=== PATIENT | female | born 1930 | race Caucasian/White ===

== ENCOUNTER 2017-03-27 14:32 | Emergency (ER) | payer MEDICARE, OTHER ==
[2017-03-27] MEDS ORDERED: Oxymetazoline 0.05% Nasal Spray 15 ML Bottle NAS ONE (15:15)
[2017-03-27] MEDS ORDERED: cloNIDine 0.1 MG Tab PO ONE (15:16)
[2017-03-27] MEDS ORDERED: Labetalol 100 MG/20 ML MDV IVPUSH ONE ×2 (15:21→17:01)
--- NOTE | 2017-03-27 15:32 | EDM.PDOC ---
ED HPI GENERAL MEDICAL PROBLEM - General Chief Complaint: ENT Problem Stated Complaint: HIGH BLOOD PRESSURE/BLOODY NOSE Time Seen by Provider: 03/27/17 15:18 Source of Information: Reports: Patient History Limitations: Reports: No Limitations - History of Present Illness INITIAL COMMENTS - FREE TEXT/NARRATIVE: Patient is a 87-year-old female who presents to the ED complaining of nosebleed out of the right nare. Patient states this started at approximately 10:00 a.m. today while eating. Bleeding subsided and patient went home. At approximately 12 :00 it restarted and the bleeding has been persistent since. On examination in the ED patient's daughter who is a nurse is holding pressure to the patient's nose. Bleeding has subsided. It was found that her blood pressure is quite elevated currently 229/129 heart rate 120. Patient takes multiple medications for hypertension and states she's taken all her meds this morning as prescribed. Normally her blood pressure is 100/68. She currently denies any headache, vision changes, weakness or extremities, difficulty swallowing, chest pain, shortness of breath, nausea/vomiting, or any additional complaints. Patient states she has a superficial artery within her nose that occasionally bleeds. Normally is controlled with direct pressure. Again patient has no complaints other than epistaxis. Daughter states patient is mildly anxious with admission to the ED. Current medications include: Amlodipine, aspirin, Lipitor, lisinopril, Pepcid, potassium chloride, warfarin, Toprol-XL, clonidine, levothyroxine, and HCTZ. - Related Data Allergies Allergy/AdvReac Type Severity Reaction Status Date / Time No Known Allergies Allergy Verified 03/27/17 14:55 Home Meds: Home Meds Aspirin [Halfprin] 81 mg PO BRK 03/27/17 [History] Famotidine [Pepcid] 20 mg PO DAILY 03/27/17 [History] Hydrochlorothiazide 25 mg PO DAILY 03/27/17 [History] Levothyroxine Sodium [Synthroid] 25 mcg PO DAILY 03/27/17 [History] Lisinopril [Zestril] 20 mg PO DAILY 03/27/17 [History] Metoprolol Succinate [Toprol XL] 25 mg PO DAILY 03/27/17 [History] Potassium Chloride 10 meq PO BID PRN 03/27/17 [History] Warfarin [Coumadin] 1 mg PO Q2D 03/27/17 [History] amLODIPine [Norvasc] 10 mg PO DAILY 03/27/17 [History] atorvaSTATin [Lipitor] 20 mg PO BEDTIME 03/27/17 [History] cloNIDine HCl [Catapres] 0.2 mg PO BID 03/27/17 [History] Past Medical History HEENT History: Reports: Hard of Hearing, Impaired Vision Cardiovascular History: Reports: Afib, High Cholesterol, Hypertension, Pacemaker , Stents [employer] History: Reports: Musculoskeletal History: Reports: Arthritis Endocrine/Metabolic History: Reports: Hypothyroidism Oncologic (Cancer) History: Reports: Other (See Below) Other Oncologic History: adenocarcinoma - Infectious Disease History Infectious Disease History: Reports: Chicken Pox, Mumps - Past Surgical History Cardiovascular Surgical History: Reports: Coronary Artery Stent Social & Family History - Tobacco Use Smoking Status *Q: Former Smoker Used Tobacco, but Quit: Yes Month Tobacco Last Used: 30 years ago - Caffeine Use Caffeine Use: Reports: Coffee - Recreational Drug Use Recreational Drug Use: No ED ROS ENT - Review of Systems Review Of Systems: ROS reveals no pertinent complaints other than HPI. ED EXAM, ENT - Physical Exam Exam: See Below Exam Limited By: No Limitations General Appearance: Alert, WD/WN, No Apparent Distress Ears: Hearing Grossly Normal, Other (Daughter holding a wash rag with dried blood to the right nare. When removed no bleeding. ) Nose: Normal Inspection Mouth/Throat: Normal Inspection, Normal Oropharynx Head: Atraumatic, Normocephalic Neck: Normal Inspection, Supple Respiratory/Chest: No Respiratory Distress, Lungs Clear, Normal Breath Sounds, No Accessory Muscle Use Cardiovascular: Normal Peripheral Pulses, Regular Rate, Rhythm GI/Abdominal: Normal Bowel Sounds, Soft Neurological: Alert, Oriented, CN II-XII Intact, Normal Cognition, No Motor/ Sensory Deficits Psychiatric: Normal Affect, Normal Mood Skin: Warm, Dry, Intact, Normal Color Course - Vital Signs Last Recorded V/S: Last Vital Signs Temp 98.1 F 03/27/17 14:52 Pulse 88 03/27/17 17:31 Resp 18 03/27/17 14:52 BP 224/202 H 03/27/17 17:31 Pulse Ox 94 L 03/27/17 14:52 - Orders/Labs/Meds Labs: Laboratory Tests 03/27/17 03/27/17 03/27/17 Range/Units 15:21 15:40 15:40 WBC 11.34 H (3.98-10.04) K/mm3 RBC 5.81 H (3.98-5.22) M/mm3 Hgb 17.2 H (11.2-15.7) gm/L Hct 50.7 H (34.1-44.9) % MCV 87.3 (79.4-94.8) fl MCH 29.6 (25.6-32.2) pg MCHC 33.9 (32.2-35.5) g/dl RDW Std Deviation 46.3 (36.4-46.3) fL Plt Count 182 (182-369) K/mm3 MPV 11.6 (9.4-12.3) fl Neut % (Auto) 72.6 H (34.0-71.1) % Lymph % (Auto) 16.2 L (19.3-51.7) % Gove % (Auto) 9.3 (4.7-12.5) % Eos % (Auto) 1.3 (0.7-5.8) Baso % (Auto) 0.4 (0.1-1.2) % Neut # (Auto) 8.22 H (1.56-6.13) K/mm3 Lymph # (Auto) 1.84 (1.18-3.74) K/mm3 Gove # (Auto) 1.06 H (0.24-0.36) K/mm3 Eos # (Auto) 0.15 (0.04-0.36) K/mm3 Baso # (Auto) 0.05 (0.01-0.08) K/mm3 PT 30.9 H (8.0-13.0) SECONDS INR 2.66 Sodium 145 (136-145) mEq/L Potassium 3.0 L (3.5-5.1) mEq/L Chloride 103 (98-107) mEq/L Carbon Dioxide 27 (21-32) mEq/L Anion Gap 18.0 H (5-15) BUN 15 (7-18) mg/dL Creatinine 1.0 (0.55-1.02) mg/dL Est Cr Clr Drug Dosing 29.01 mL/min Estimated GFR (MDRD) 53 (>60) mL/min BUN/Creatinine Ratio 15.0 (14-18) Glucose 121 H (83-115) mg/dL Calcium 9.7 (8.5-10.1) mg/dL Total Bilirubin 1.1 H (0.2-1.0) mg/dL AST 29 (15-37) U/L ALT 30 (14-59) U/L Alkaline Phosphatase 101 (46-116) U/L Total Protein 8.9 H (6.4-8.2) g/dl Albumin 4.2 (3.4-5.0) g/dl Globulin 4.7 gm/dL Albumin/Globulin Ratio 0.9 L (1-2) Meds: Medications Discontinued Medications Generic Name Dose Route Start Last Admin Trade Name Freq PRN Reason Stop Dose Admin Clonidine HCl 0.2 mg 03/27/17 15:16 03/27/17 15:20 Catapres PO 03/27/17 15:17 0.2 mg ONETIME ONE Administration Labetalol HCl 20 mg 03/27/17 15:21 03/27/17 16:24 Normodyne IVPUSH 03/27/17 15:22 Not Given ONETIME ONE Protocol Labetalol HCl 20 mg 03/27/17 17:01 03/27/17 17:31 Normodyne IVPUSH 03/27/17 17:02 20 mg ONETIME ONE Administration Protocol Oxymetazoline HCl 1 ml 03/27/17 15:15 03/27/17 15:21 Afrin Original 0.05% Nasal [place] GURU 03/27/17 15:16 2 spray ONETIME ONE Administration - Re-Assessments/Exams Free Text/Narrative Re-Assessment/Exam: Initially ordered clonidine 0.2 mg by mouth due to elevated blood pressures. Initial labs will include CBC, PTT/INR, and type and screen. In addition ordered Afrin. I canceled clonidine due to the patient was mildly tachycardic with elevated blood pressure was changing to labetalol 20 mg IVP. Clonidine was already given. Canceled labetalol. Again the epistaxis has subsided with admission to the ED. I did spray Afrin 2 sprays to each nares with direct pressure held. Will attempt to drop her blood pressure although this may be difficult with her history of hypertension and currently on multiple medications. Labs reviewed: White blood cell count 11.34, hemoglobin 17.2, platelet count 182 , PTT/INR 2.66, sodium 145, potassium 3.0, creatinine 1.0, glucose 121. Reassessment, patient's blood pressure has decreased to 160 systolic. Patient has not had any additional bleeding. Labs reviewed: White blood cell count 11.34, hemoglobin 17.2, platelet count 182 , PTT/INR 2.66, sodium 145, potassium 3.0, creatinine 1.0, glucose 121. Reassessment, patient's blood pressure has decreased to 160 systolic. Bleeding continues to have subsided. 03/27/17 16:59 Reassessment, patient's blood pressure is trending upward. Last reading was 207/97 at 1701. Patient continues to have no bleeding from the right nares. Will go ahead and order labetalol 20 mg IVP. Plan is to discharge patient home when blood pressure is trending downward with instructions to take Toprol XL 50 mg every day. This will be increased from 25 mg every day to 50 mg every day. 03/27/17 18:04 Reassessment patient's blood pressure is 114/72. Patient has no bleeding from the affected and air. Will discharge patient home with instructions as documented. Departure - Departure Time of Disposition: 18:07 Disposition: Home, Self-Care 01 Condition: Good Clinical Impression: Epistaxis, Hypokalemia Hypertension Qualifiers: Hypertension type: unspecified Qualified Code(s): I10 - Essential (primary) hypertension - Discharge Information Referrals: Yonatan Pedersen MD [Primary Care Provider] - Forms: ED Department Discharge Additional Instructions: As discussed will have the patient started taking Toprol 50 mg once a day which is increased from 25 mg once a day. Continue taking amlodipine, lisinopril, clonidine, and HCTZ along with all other home medications as prescribed. Blood pressure was quite elevated with admission to the ED today. Thus suggest close monitoring twice a day, same time, with daily log kept. See your PCP on Thursday or Thursday for reevaluation. If you see a climb in your blood pressure please return to the ED. In addition if you develop epistaxis again spray Afrin 1-2 sprays to the affected and air with gentle pressure held for at least 20 minutes. If bleeding does not subside please return back to the ED. Suggest applying heavy coat of vaseline to both nares twice a day during the cold months. Again return to ED as needed for any new or worsening symptoms.
== END 2017-03-27 18:30 | disposition home or self-care (01) ==
LOC: JD.ED 14:32
DX: R04.0 Epistaxis (principal); E87.6 Hypokalemia; I10 Essential (primary) hypertension; Z79.82 Long term (current) use of aspirin; Z79.899 Other long term (current) drug therapy; Z87.891 Personal history of nicotine dependence
CPT/HCPCS: 36415; 80053; 85025; 85610; 96374; 99284; A9270

== ENCOUNTER 2017-11-29 09:20 | Inpatient (IN) | payer MEDICARE, OTHER ==
--- NOTE | 2017-11-29 09:38 | EDM.PDOC ---
ED HPI GENERAL MEDICAL PROBLEM - General Chief Complaint: Neuro Symptoms/Deficits Stated Complaint: [facility] Time Seen by Provider: 11/29/17 09:33 Source of Information: Reports: Patient, EMS, Family (daughter) History Limitations: Reports: Altered Mental Status - History of Present Illness INITIAL COMMENTS - FREE TEXT/NARRATIVE: Elderly 87-year-old female brought to the ED after being found on the floor of her home or apartment this morning. She resides alone in [facility]. It is an assisted living center. He is usually very sharp mentally alert. This morning she is confused and disoriented. She was found lying on the floor of her home for unknown length of period of time. She had lost control of her bowel and bladder function at some point in time. There was no outward signs of head trauma. Is very slow to answer us and to obey commands. Seems to be able to move all limbs. There was no emesis on scene according to paramedics and her daughter. She is not known to be diabetic. Onset: Today Onset Date: 11/29/17 (It's believed that she fell sometime during the night.) Duration: Hour(s): Location: Reports: Other (No obvious injuries but there is a change in her mental status she is confused disoriented) Quality: Reports: Other Severity: Moderate (Complains of no pain.) Improves with: Reports: None ( Moderate confusion and disorientation to person place and time.) Worsens with: Reports: None Context: Denies: Activity, Exercise, Lifting, Sick Contact, Trauma Associated Symptoms: Reports: Other Treatments ENAMEL BURNER: Reports: Other (see below) (Not able to establish as the patient for the most part is nonverbal.) - Related Data Allergies Allergy/AdvReac Type Severity Reaction Status Date / Time No Known Allergies Allergy Verified 11/29/17 09:40 Home Meds: Home Meds Aspirin [Halfprin] 81 mg PO BRK 03/27/17 [History] Famotidine [Pepcid] 20 mg PO DAILY 03/27/17 [History] Hydrochlorothiazide 25 mg PO DAILY 03/27/17 [History] Levothyroxine Sodium [Synthroid] 50 mcg PO DAILY 03/27/17 [History] Lisinopril [Zestril] 20 mg PO DAILY 03/27/17 [History] Metoprolol Succinate [Toprol XL] 25 mg PO DAILY 03/27/17 [History] Warfarin [Coumadin] 1 mg PO Q2D 03/27/17 [History] amLODIPine [Norvasc] 10 mg PO DAILY 03/27/17 [History] atorvaSTATin [Lipitor] 20 mg PO BEDTIME 03/27/17 [History] cloNIDine HCl [Catapres] 0.2 mg PO BID 03/27/17 [History] Warfarin [Coumadin] 0.5 mg PO MOWEFR 11/29/17 [History] Past Medical History HEENT History: Reports: Hard of Hearing, Impaired Vision Cardiovascular History: Reports: Afib (On Coumadin for this.), High Cholesterol , Hypertension, OK (Previous OK 3 years ago with apparently 50% of her heart damage. 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: Musculoskeletal History: Reports: Arthritis Endocrine/Metabolic History: Reports: Hypothyroidism Oncologic (Cancer) History: Reports: Other (See Below) Other Oncologic History: adenocarcinoma - Infectious Disease History Infectious Disease History: Reports: Chicken Pox, Mumps - Past Surgical History Cardiovascular Surgical History: Reports: Coronary Artery Stent Social & Family History - Caffeine Use Caffeine Use: Reports: Coffee - Living Situation & Occupation Living situation: Reports: , Alone (In an assisted living program - [facility] home.) Occupation: Retired (Has been there since her heart attack 2 years ago.) ED ROS GENERAL - Review of Systems Review Of Systems: See Below Constitutional: Reports: Other (She's not able to verbalize at this time. Daughter verbalizes that she is staying about the same as far as her weight goes.) HEENT: Reports: Glasses Respiratory: Reports: No Symptoms Cardiovascular: Reports: Blood Pressure Problem (On further questioning she denies any chest pain. Chronic hypertension and is on medication for this.), Other (Has a history of coronary disease with previous OK 2 years ago with [address] Denies: Chest Pain Endocrine: Reports: Fatigue ED EXAM, NEURO - Physical Exam Exam: See Below Exam Limited By: Altered Mental Status (Patient is disoriented and confused to person place and time which is a total atypical for her. She is normally apparently very sharp and mentally alert.) General Appearance: Anxious, Other (Appears confused. She does not answer most questions or verbalize spontaneously.) Eye Exam: Bilateral Eye: Normal Inspection, PERRL (No gaze palsy.) Throat/Mouth: Normal Inspection, Normal Lips, Normal Oropharynx, Other Head Exam: Atraumatic, Normocephalic (No obvious injuries to her tongue or oral cavity.), Other Neck: Normal Inspection (No outward signs of any closed head injuries or trauma to her head.), Supple, Non-Tender, Full Range of Motion. No: Lymphadenopathy (L ), Lymphadenopathy (R) Respiratory/Chest: No Respiratory Distress, Lungs Clear, Normal Breath Sounds, No Accessory Muscle Use, Other (No obvious injuries to her ribs or chest wall. She does have a pacemaker left upper anterior chest.) Cardiovascular: No Edema, No Gallop, No Murmur, No Rub, Irregularly Irregular ( Rhythm is irregularly irregular compatible with atrial fibrillation.) GI/Abdominal: Normal Bowel Sounds, Soft, Non-Tender, No Organomegaly, No Abnormal Bruit, No Mass Neurological: CN II-XII Intact. No: Oriented x 3, Babinski DTR: 0: Achilles (R), 1+: Achilles (R), Achilles (L), 2+: Bicep (R), Bicep (L), Patella (R), Patella (L) Back Exam: Normal Inspection, Full Range of Motion, Other (Mild kyphosis thoracic spine but no abrasions contusions or injuries.) Extremities: Other (Patient has erythema and some superficial abrasions to her right elbow particularly over the olecranon process is that she was crawling on hands and knees. She has similar erythema to the left elbow as well without abrasions. Both knees right worse on the left also have abrasion or friction erythema. There is no evidence of bony trauma however to her hips knees wrists elbows or shoulders.) Psychiatric: Flat Affect Skin Exam: Warm, Dry, Intact, Normal Color, Rash (Erythematous rashes elbows and knees as described above from friction as if she was crawling on her elbows and knees.) Course - Vital Signs Last Recorded V/S: Last Vital Signs Temp 37.2 C 11/29/17 14:10 Pulse 96 11/29/17 14:10 Resp 15 11/29/17 14:10 BP 125/65 11/29/17 14:10 Pulse Ox 96 11/29/17 14:10 - Orders/Labs/Meds Orders: Active Orders 24 hr Category Date Time Status Blood Glucose Check, Bedside [RC] ONETIME Care 11/29/17 09:36 Active EKG Documentation Completion [RC] STAT Care 11/29/17 09:36 Active Chest 1V Frontal [CR] Stat Exams 11/29/17 09:34 Taken ABO/RH TYPE [BBK] Stat Lab 11/29/17 10:04 Results CULTURE BLOOD [BC] Stat Lab 11/29/17 10:04 Received CULTURE BLOOD [BC] Stat Lab 11/29/17 10:15 Received FRESH FROZEN PLASMA [BBK] Stat Lab 11/29/17 10:04 Results PATIENT RETYPE [BBK] Stat Lab 11/29/17 10:04 Results URINALYSIS W/MICROSCOPIC [UA W/MICROSCOPIC] [URIN] Stat Lab 11/29/17 10:39 Ordered Dextrose 5%-0.9% NaCl [Dextrose 5%-Normal Saline] 1,000 Med 11/29/17 10:00 Active ml IV ASDIRECTED Blood Culture x2 Reflex Set [OM.PC] Stat Oth 11/29/17 09:36 Ordered Transfuse Fresh Frozen Plasma [COMM] Stat Oth 11/29/17 11:41 Ordered Medication Orders Dextrose/Sodium Chloride (Dextrose 5%-Normal Saline) 1,000 mls @ 150 mls/hr IV ASDIRECTED CARON Last Admin: 11/29/17 10:04 Dose: 150 mls/hr Labs: Laboratory Tests 11/29/17 11/29/17 11/29/17 Range/Units 09:46 10:04 10:04 WBC (3.98-10.04) K/mm3 RBC (3.98-5.22) M/mm3 Hgb (11.2-15.7) gm/L Hct (34.1-44.9) % MCV (79.4-94.8) fl MCH (25.6-32.2) pg MCHC (32.2-35.5) g/dl RDW Std Deviation (36.4-46.3) fL Plt Count (182-369) K/mm3 MPV (9.4-12.3) fl Neutrophils % (Manual) (40-60) % Band Neutrophils % (0-10) % Lymphocytes % (Manual) (20-40) % Atypical Lymphs % % Monocytes % (Manual) (2-10) % Eosinophils % (Manual) (0.7-5.8) % Basophils % (Manual) (0.1-1.2) Platelet Estimate RBC Morph Comment ESR (0-20) mm/hr PT (9.5-12.1) SECONDS INR Fibrinogen 396 (187-446) mg/dL Sodium (136-145) mEq/L Potassium (3.5-5.1) mEq/L Chloride (98-107) mEq/L Carbon Dioxide (21-32) mEq/L Anion Gap (5-15) BUN (7-18) mg/dL Creatinine (0.55-1.02) mg/dL Est Cr Clr Drug Dosing mL/min Estimated GFR (MDRD) (>60) mL/min BUN/Creatinine Ratio (14-18) Glucose (83-115) mg/dL POC Glucose 145 H (83-110) mg/dL Calcium (8.5-10.1) mg/dL Magnesium (1.8-2.4) mg/dl Total Bilirubin (0.2-1.0) mg/dL AST (15-37) U/L ALT (14-59) U/L Alkaline Phosphatase (46-116) U/L Creatine Kinase (26-192) U/L CK-MB (CK-2) (0-3.6) ng/ml Troponin I (0.00-0.056) ng/mL C-Reactive Protein (<1.0) mg/dL NT-Pro-B Natriuret Pep (0-450) pg/mL Total Protein (6.4-8.2) g/dl Albumin (3.4-5.0) g/dl Globulin gm/dL Albumin/Globulin Ratio (1-2) Urine Color (Yellow) Urine Appearance (Clear) Urine pH (5.0-8.0) Ur Specific Rembrandt (1.005-1.030) Urine Protein (Negative) Urine Glucose (UA) (Negative) Urine Ketones (Negative) Urine Occult Blood (Negative) Urine Nitrite (Negative) Urine Bilirubin (Negative) Urine Urobilinogen (0.2-1.0) Ur Leukocyte Esterase (Negative) Urine RBC (0-5) /hpf Urine WBC (0-5) /hpf Ur Epithelial Cells (0-5) /hpf Urine Bacteria (FEW) /hpf Hyaline Casts (0-5) /lpf Urine Mucus (FEW) /hpf Blood Type A POSITIVE 11/29/17 11/29/17 11/29/17 Range/Units 10:09 10:09 10:09 WBC 11.99 H (3.98-10.04) K/mm3 RBC 5.63 H (3.98-5.22) M/mm3 Hgb 16.4 H (11.2-15.7) gm/L Hct 50.3 H (34.1-44.9) % MCV 89.3 (79.4-94.8) fl MCH 29.1 (25.6-32.2) pg MCHC 32.6 (32.2-35.5) g/dl RDW Std Deviation 45.3 (36.4-46.3) fL Plt Count 157 L (182-369) K/mm3 MPV 11.8 (9.4-12.3) fl Neutrophils % (Manual) 89 H (40-60) % Band Neutrophils % 0 (0-10) % Lymphocytes % (Manual) 9 L (20-40) % Atypical Lymphs % 0 % Monocytes % (Manual) 2 (2-10) % Eosinophils % (Manual) 0 L (0.7-5.8) % Basophils % (Manual) 0 L (0.1-1.2) Platelet Estimate Adequate RBC Morph Comment Normal ESR (0-20) mm/hr PT 21.4 H (9.5-12.1) SECONDS INR 1.99 Fibrinogen (187-446) mg/dL Sodium 142 (136-145) mEq/L Potassium 2.8 L (3.5-5.1) mEq/L Chloride 101 (98-107) mEq/L Carbon Dioxide 27 (21-32) mEq/L Anion Gap 16.8 H (5-15) BUN 22 H (7-18) mg/dL Creatinine 1.3 H (0.55-1.02) mg/dL Est Cr Clr Drug Dosing 22.31 mL/min Estimated GFR (MDRD) 39 (>60) mL/min BUN/Creatinine Ratio 16.9 (14-18) Glucose 128 H (83-115) mg/dL POC Glucose (83-110) mg/dL Calcium 9.7 (8.5-10.1) mg/dL Magnesium 1.6 L (1.8-2.4) mg/dl Total Bilirubin 1.5 H (0.2-1.0) mg/dL AST 27 (15-37) U/L ALT 12 L (14-59) U/L Alkaline Phosphatase 94 (46-116) U/L Creatine Kinase 263 H (26-192) U/L CK-MB (CK-2) 3.7 H (0-3.6) ng/ml Troponin I < 0.017 (0.00-0.056) ng/mL C-Reactive Protein 11.5 H* (<1.0) mg/dL NT-Pro-B Natriuret Pep (0-450) pg/mL Total Protein 8.3 H (6.4-8.2) g/dl Albumin 4.2 (3.4-5.0) g/dl Globulin 4.1 gm/dL Albumin/Globulin Ratio 1.0 (1-2) Urine Color (Yellow) Urine Appearance (Clear) Urine pH (5.0-8.0) Ur Specific Rembrandt (1.005-1.030) Urine Protein (Negative) Urine Glucose (UA) (Negative) Urine Ketones (Negative) Urine Occult Blood (Negative) Urine Nitrite (Negative) Urine Bilirubin (Negative) Urine Urobilinogen (0.2-1.0) Ur Leukocyte Esterase (Negative) Urine RBC (0-5) /hpf Urine WBC (0-5) /hpf Ur Epithelial Cells (0-5) /hpf Urine Bacteria (FEW) /hpf Hyaline Casts (0-5) /lpf Urine Mucus (FEW) /hpf Blood Type 11/29/17 11/29/17 11/29/17 Range/Units 10:09 10:09 10:39 WBC (3.98-10.04) K/mm3 RBC (3.98-5.22) M/mm3 Hgb (11.2-15.7) gm/L Hct (34.1-44.9) % MCV (79.4-94.8) fl MCH (25.6-32.2) pg MCHC (32.2-35.5) g/dl RDW Std Deviation (36.4-46.3) fL Plt Count (182-369) K/mm3 MPV (9.4-12.3) fl Neutrophils % (Manual) (40-60) % Band Neutrophils % (0-10) % Lymphocytes % (Manual) (20-40) % Atypical Lymphs % % Monocytes % (Manual) (2-10) % Eosinophils % (Manual) (0.7-5.8) % Basophils % (Manual) (0.1-1.2) Platelet Estimate RBC Morph Comment ESR 21 H (0-20) mm/hr PT (9.5-12.1) SECONDS INR Fibrinogen (187-446) mg/dL Sodium (136-145) mEq/L Potassium (3.5-5.1) mEq/L Chloride (98-107) mEq/L Carbon Dioxide (21-32) mEq/L Anion Gap (5-15) BUN (7-18) mg/dL Creatinine (0.55-1.02) mg/dL Est Cr Clr Drug Dosing mL/min Estimated GFR (MDRD) (>60) mL/min BUN/Creatinine Ratio (14-18) Glucose (83-115) mg/dL POC Glucose (83-110) mg/dL Calcium (8.5-10.1) mg/dL Magnesium (1.8-2.4) mg/dl Total Bilirubin (0.2-1.0) mg/dL AST (15-37) U/L ALT (14-59) U/L Alkaline Phosphatase (46-116) U/L Creatine Kinase (26-192) U/L CK-MB (CK-2) (0-3.6) ng/ml Troponin I (0.00-0.056) ng/mL C-Reactive Protein (<1.0) mg/dL NT-Pro-B Natriuret Pep 1420 H (0-450) pg/mL Total Protein (6.4-8.2) g/dl Albumin (3.4-5.0) g/dl Globulin gm/dL Albumin/Globulin Ratio (1-2) Urine Color Yellow (Yellow) Urine Appearance Clear (Clear) Urine pH 7.0 (5.0-8.0) Ur Specific Rembrandt 1.025 (1.005-1.030) Urine Protein 3+ H (Negative) Urine Glucose (UA) Negative (Negative) Urine Ketones Trace H (Negative) Urine Occult Blood Trace-lysed H (Negative) Urine Nitrite Negative (Negative) Urine Bilirubin Negative (Negative) Urine Urobilinogen 0.2 (0.2-1.0) Ur Leukocyte Esterase Negative (Negative) Urine RBC 0-5 (0-5) /hpf Urine WBC 0-5 (0-5) /hpf Ur Epithelial Cells Not seen (0-5) /hpf Urine Bacteria Not seen (FEW) /hpf Hyaline Casts 0-5 (0-5) /lpf Urine Mucus Few (FEW) /hpf Blood Type Meds: Medications Generic Name Dose Route Start Last Admin Trade Name Freq PRN Reason Stop Dose Admin Dextrose/Sodium Chloride 1,000 mls @ 150 mls/hr 11/29/17 10:00 11/29/17 10:04 Dextrose 5%-Normal Saline IV 150 mls/hr ASDIRECTED CARON Administration Discontinued Medications Generic Name Dose Route Start Last Admin Trade Name Freq PRN Reason Stop Dose Admin Phytonadione 5 mg/ Sodium 50.5 mls @ 100 mls/hr 11/29/17 10:33 11/29/17 11:36 Chloride IV 11/29/17 11:03 100 mls/hr NOW ONE Administration Nicardipine HCl 25 mg/ Sodium 260 mls @ 52 mls/hr 11/29/17 11:45 11/29/17 12: 15 Chloride IV 5 mg/hr ASDIRECTED CARON 52 mls/hr Administration 5 MG/HR Potassium Chloride 10 meq/ 100 mls @ 100 mls/hr 11/29/17 12:06 11/29/17 12:23 Premix IV 11/29/17 13:05 100 mls/hr ONETIME ONE Administration Nicardipine HCl 25 mg/ Sodium 260 mls @ 104 mls/hr 11/29/17 12:45 Chloride IV TITRATE CARON 10 MG/HR Nicardipine HCl 25 mg/ Sodium 260 mls @ 78 mls/hr 11/29/17 13:30 Chloride IV ASDIRECTED CARON 7.5 MG/HR Nicardipine HCl 25 mg/ Sodium 260 mls @ 52 mls/hr 11/29/17 14:30 Chloride IV ASDIRECTED CARON 5 MG/HR - Radiology Interpretation Free Text/Narrative:: 87-year-old female brought to the ED per ambulance from her home where she resides alone. Apparently she is in assisted living program . She usually is mentally alert and oriented. Daughter found her this morning lying on the floor and she had lost control of her bowel and bladder. She is very confused and disoriented to person place and time. She is able to verbalize only a few words at a time she seems to abat more of her daughter's commands then mind. She seemed to have difficulty focusing on what was asked of her. She did not vomit or any spontaneous verbalization. Palpation of head and neck showed no evidence of closed head injuries or neck injuries. She has abrasions and contusions to her elbows and her knees as if she's been crawling on her elbows and knees. No bony injuries are identified on exam. Therefore the cause of acute altered mental status is unclear although CVA remains top of the list. Of note she is on Coumadin because of atrial fibrillation. Plan CT head to be done. IV will be D5 normal saline at 150 mils per hour. Routine labs to be collected. - Re-Assessments/Exams Free Text/Narrative Re-Assessment/Exam: 11/29/17 10:31 CT of the brain reveals a large intracerebral infarct most likely hypertensive bleed. This measures 31 x 24 millimeters. This involves the left parietal deep lobe mostly within the basal ganglia. There is mild shift to the right side as the lateral ventricle is mildly compressed.. Patient is anticoagulated with Coumadin. She will receive vitamin K 5 mg IV. We'll also get 2 units of fresh frozen plasma crossmatched . I spoke to her daughter and she indicates that she is a DO NOT RESUSCITATE DO NOT INTUBATE patient. For would not want heroic intervention such as intracranial surgery. Her pressure currently is 166/88 and does not deserve intervention at this time. 11/29/17 11:04 Trudi is avaialbe here. Therefore I am going to go ahead and give her 1400 units which we'll round up to 1500 units as it comes 500 units per vial. It's weight-based and 25 mcg/kg and is also based on her current INR. Therefore she deserves the above dosage as per recommendations. From what I can understand it appears that vitamin K is also administered with this once the effects of the case and to have diminished. Not sure how this is identified.. It does not say in the literature provided whether fresh frozen plasma is also used. I'm going to go ahead and call neurosurgery and [facility] to see if they have any experience with this drug. Chest x-ray reveals mild to moderate cardiomegaly. Perhaps very mild central vascular congestion. No pleural effusions. No pneumothorax or lung infiltrate. 11/29/17 11:25: Spoke with neurosurgical intervention last in [facility] and he indicates he would like her blood pressure to be around 140 systolic. Recommend neck on a pain drip. He said go ahead with N to dose based on her weight and her PT/INR. He also agreed with giving her vitamin K 5 mg intravenously over 15-20 minutes. He also agreed with giving her at least 1 unit of FFP and then rechecking coags ie INR and fibrinogen levels in 6 hours. If the INR is essentially back to normal she would not need a second unit of FFP. 11/29/17 12:06 Labs are back. Total white count is 11.99 with a left-sided shift of 89% neutrophils no bands reported. Hemoglobin is 16.4 with hematocrit of 50.3 indicating some degree of hemoconcentration. Platelet count is 157,000. Sedimentation rate is 21. PT is 21.4 with an INR of 1.99. Sodium is 142 potassium is low at 2.8. Chloride is 101 with a bicarbonate of 27. Anion gap is slightly elevated at 16.8 indicating some degree of volume depletion. BUN is 22. Creatinine is 1.3. EGFR is 39 i.e. stage III chronic kidney disease. Glucose is 128 bedside blood glucose was 145. Calcium is 9.7 with a magnesium slightly low at 1.6. Total bilirubin is elevated at 1.5. AST is 27 with a nail T of 12. Alk phosphatase 94. CPK is 263 mildly elevated total CK-MB is 3.7. Troponin I is less than 0.017. C-reactive protein is elevated at 11.5. BNP is elevated at 1420. Urinalysis shows 3+ proteinuria but no signs of infection. This was a catheterized specimen.. We will start her on a potassium rider with 10 mEq IV at this time. Current blood pressure is 188/66. Nicardipine drip is just being started now. 11/29/17 12:[address] Elaine sonography technologist hospitalist and she will attend the patient in the ED. At this time due to starting the car to pain drip to control her hypertension she will be admitted to the intensive care unit. Her CODE STATUS is confirmed DO NOT RESUSCITATE/DO NOT INTUBATE. Code level III. at this time her prognosis is extremely guarded. 11/29/17 12:40: Blood pressure is 164/92. Nicardipine drip will be increased to 10 mg per hour. Free Text/Narrative Re-Assessment/Exam: 11/29/17 13:20 blood pressure is now dropped down to 123/78. I will back off on the Cardizem to 7.5 mg per hour. 11/29/17 14:20 blood pressure stayed in the 120s for a almost the last hour. It did drop now down to 113/100 if this is accurate. I doubt it's accurate because the pulse pressures too close together. Therefore going to reduce the nicardipine drip back to 5 mg per hour. 11/29/17 14:40: Blood pressure dropped to as low as 101 systolic. Therefore the new carpeting drip was discontinued completely. 11/29/17 15:08 BP is now up to 152/74. Heart rate is 83 irregularly irregular compatible with atrial fib flutter. 94% on room air a bed is not yet available in the ICU. 11/29/17 20:44 of note this patient spent an excessive amount of time in the emergency room due to inability of a bed in the intensive care unit. Departure - Departure Time of Disposition: 19:30 Disposition: Admitted As Inpatient 67 Condition: Critical Clinical Impression: Hypokalemia, Hypomagnesemia Intracerebral bleed Qualifiers: Intracerebral hemorrhage etiology: nontraumatic Cerebral hemorrhage location: cerebral hemisphere, subcortical portion Laterality: left Qualified Code(s): I61.0 - Nontraumatic intracerebral hemorrhage in hemisphere, subcortical Hypertension Qualifiers: Hypertension type: unspecified Qualified Code(s): I10 - Essential (primary) hypertension - Discharge Information - My Orders Last 24 Hours: My Active Orders 11/29/17 09:34 Chest 1V Frontal [CR] Stat 11/29/17 09:36 Blood Glucose Check, Bedside [RC] ONETIME EKG Documentation Completion [RC] STAT Blood Culture x2 Reflex Set [OM.PC] Stat 11/29/17 10:00 Dextrose 5%-0.9% NaCl [Dextrose 5%-Normal Saline] 1,000 ml IV ASDIRECTED 11/29/17 10:04 ABO/RH TYPE [BBK] Stat CULTURE BLOOD [BC] Stat FRESH FROZEN PLASMA [BBK] Stat PATIENT RETYPE [BBK] Stat 11/29/17 10:15 CULTURE BLOOD [BC] Stat 11/29/17 10:39 URINALYSIS W/MICROSCOPIC [UA W/MICROSCOPIC] [URIN] Stat 11/29/17 11:41 Transfuse Fresh Frozen Plasma [COMM] Stat - Assessment/Plan Last 24 Hours: My Active Orders 11/29/17 09:34 Chest 1V Frontal [CR] Stat 11/29/17 09:36 Blood Glucose Check, Bedside [RC] ONETIME EKG Documentation Completion [RC] STAT Blood Culture x2 Reflex Set [OM.PC] Stat 11/29/17 10:00 Dextrose 5%-0.9% NaCl [Dextrose 5%-Normal Saline] 1,000 ml IV ASDIRECTED 11/29/17 10:04 ABO/RH TYPE [BBK] Stat CULTURE BLOOD [BC] Stat FRESH FROZEN PLASMA [BBK] Stat PATIENT RETYPE [BBK] Stat 11/29/17 10:15 CULTURE BLOOD [BC] Stat 11/29/17 10:39 URINALYSIS W/MICROSCOPIC [UA W/MICROSCOPIC] [URIN] Stat 11/29/17 11:41 Transfuse Fresh Frozen Plasma [COMM] Stat
[2017-11-29] MEDS ORDERED: Dextrose 5%-0.9% NaCl 1,000 ML IV SCH (10:00)
[2017-11-29] MEDS ORDERED: Phytonadione 5 MG in Sodium Chloride 0.9% 50 ML IV ONE (10:33)
--- NOTE | 2017-11-29 10:37 | CT ---
Head CT Technique: Multiple axial sections through the brain were obtained. Intravenous contrast was not utilized. Comparison: No prior intracranial imaging. Findings: Parenchymal hemorrhage is identified with its epicenter within the left basal ganglia. Hemorrhage has a maximum measurement of 3.1 cm. This causes mild mass effect upon the adjacent left lateral ventricle. Ventricles along the basal cisterns and sulci over convexities are moderately prominent. Diminished density is noted within the periventricular white matter which is compatible with small vessel ischemic demyelination change. Mild atrophy of the cerebellum is also noted. Mild mucosal thickening is seen within the left sphenoid sinus. Visualized sinuses are otherwise clear. No acute calvarial abnormality is seen. Impression: 1. 3.1 cm acute parenchymal hemorrhage mostly within the left basal ganglia. 2. This hemorrhage causes mild mass effect upon the lateral left ventricle. 3. Senescent change as noted above. Diagnostic code #5
[2017-11-29] MEDS ORDERED: niCARdipine HCl 25 MG in Sodium Chloride 0.9% 250 ML IV SCH ×4 (11:45→14:30)
[2017-11-29] MEDS ORDERED: PROTHROMBIN COMPLEX 500 UNIT IVPUSH ONE (12:00)
[2017-11-29] MEDS ORDERED: Potassium Chloride 10 MEQ in Premix Bag 1 BAG IV ONE (12:06)
--- NOTE | 2017-11-29 20:35 | PCM.HP ---
H&P History of Present Illness - General Date of Service: 11/29/17 Admit Problem/Dx: Admission Diagnosis/Problem Admission Diagnosis/Problem Intracerebral hemorrhage Source of Information: Provider History Limitations: Reports: No Limitations - History of Present Illness Initial Comments - Free Text/Narative: 87 year old female, a [facility] resident was found in her home on the floor. Duration is unknown, at some point there was urine and bowel incontinence. ED work up documented a basal ganglia hemorrhage; there has been no known arrhythmia, or cardiac event. She however does have a history of A Fib. ECG documents a V-paced rhythm. She denies SOB, CP; overall there are no complaints voiced. INR before reversal was 1.9; CMP abnormalities K 2.8/Mg 1.6 ; BNP 1420; ESR WNL; TnI WNL. CT of brain without contrast: large intracerebral infarct with hemorrhage; there is a mild midline shift with compression of the lateral ventricle. Guidance from neuro-vascular service in [facility] was sought. BP goal will be ~SBP,140. The patient will be admitted to the ICU with CVA protocol; she is DNR/DNI. Onset of Symptoms: Reports: Unknown/Unsure Symptom Onset Date: 11/29/17 Duration of Symptoms: Reports: Hour(s):, Getting Worse Location: Reports: Generalized Severity: Moderate Improves with: Reports: Medication Worsens with: Reports: None Associated Symptoms: Reports: Confusion - Related Data Allergies/Adverse Reactions: Allergies Allergy/AdvReac Type Severity Reaction Status Date / Time No Known Allergies Allergy Verified 11/29/17 09:40 Home Medications: Home Meds Aspirin [Halfprin] 81 mg PO BRK 03/27/17 [History] Famotidine [Pepcid] 20 mg PO DAILY 03/27/17 [History] Hydrochlorothiazide 25 mg PO DAILY 03/27/17 [History] Levothyroxine Sodium [Synthroid] 50 mcg PO DAILY 03/27/17 [History] Lisinopril [Zestril] 20 mg PO DAILY 03/27/17 [History] Metoprolol Succinate [Toprol XL] 25 mg PO DAILY 03/27/17 [History] Warfarin [Coumadin] 1 mg PO Q2D 03/27/17 [History] amLODIPine [Norvasc] 10 mg PO DAILY 03/27/17 [History] atorvaSTATin [Lipitor] 20 mg PO BEDTIME 03/27/17 [History] cloNIDine HCl [Catapres] 0.2 mg PO BID 03/27/17 [History] Warfarin [Coumadin] 0.5 mg PO MOWEFR 11/29/17 [History] Past Medical History HEENT History: Reports: Hard of Hearing, Impaired Vision Cardiovascular History: Reports: Afib, High Cholesterol, Hypertension, MT, Pacemaker, Stents AUDIO/VISUAL MANAGER History: Reports: Musculoskeletal History: Reports: Arthritis Neurological History: Reports: CVA Other Neuro History: bleed Endocrine/Metabolic History: Reports: Hypothyroidism Oncologic (Cancer) History: Reports: Other (See Below) Other Oncologic History: adenocarcinoma - Infectious Disease History Infectious Disease History: Reports: Chicken Pox, Mumps - Past Surgical History Cardiovascular Surgical History: Reports: Coronary Artery Stent Social & Family History - Family History Cardiac: Reports: Heart Failure - Tobacco Use Smoking Status *Q: Former Smoker Years of Tobacco use: 50 Packs/Tins Daily: 1 Used Tobacco, but Quit: Yes Month/Year Tobacco Last Used: 1992 Second Hand Smoke Exposure: No - Caffeine Use Caffeine Use: Reports: Coffee - Recreational Drug Use Recreational Drug Use: No - Living Situation & Occupation Living situation: Reports: , Alone (In an assisted living program - [facility].) Occupation: Retired (Has been there since her heart attack 2 years ago.) H&P Review of Systems - Review of Systems: Review Of Systems: See Below General: Reports: No Symptoms HEENT: Reports: No Symptoms Pulmonary: Reports: No Symptoms Cardiovascular: Reports: No Symptoms Gastrointestinal: Reports: No Symptoms Genitourinary: Reports: No Symptoms Musculoskeletal: Reports: No Symptoms Skin: Reports: No Symptoms Psychiatric: Reports: No Symptoms Neurological: Reports: No Symptoms Hematologic/Lymphatic: Reports: No Symptoms Immunologic: Reports: No Symptoms Exam - Exam Exam: See Below - Vital Signs Vital Signs: Last Vital Signs Temp 37.2 C 11/29/17 14:10 Pulse 96 11/29/17 14:10 Resp 15 11/29/17 14:10 BP 125/65 11/29/17 14:10 Pulse Ox 96 11/29/17 14:10 Weight: 56.699 kg - Exam Quality Assessment: Supplemental Oxygen, DVT Prophylaxis General: Alert, Cooperative HEENT: Mucosa Moist & [place], Pupils Equal, Pupils Reactive, PERRLA Neck: Trachea Midline Lungs: Normal Respiratory Effort Cardiovascular: Regular Rate, Irregular Rhythm GI/Abdominal Exam: Normal Bowel Sounds, Soft, Non-Tender, No Organomegaly, No Distention (Female) Exam: Deferred Rectal (Female) Exam: Deferred Back Exam: Normal Inspection Extremities: Normal Inspection Skin: Warm Neurological: Cranial Nerves Intact Neuro Extensive - Mental Status: Alert Neuro Extensive - Motor, Sensory, Reflexes: CN II-XII Intact, Babinski (no) Psychiatric: Alert - Patient Data Lab Results Last 24 hrs: Laboratory Results - last 24 hr 11/29/17 11/29/17 11/29/17 Range/Units 09:46 10:04 10:04 WBC (3.98-10.04) K/mm3 RBC (3.98-5.22) M/mm3 Hgb (11.2-15.7) gm/L Hct (34.1-44.9) % MCV (79.4-94.8) fl MCH (25.6-32.2) pg MCHC (32.2-35.5) g/dl RDW Std Deviation (36.4-46.3) fL Plt Count (182-369) K/mm3 MPV (9.4-12.3) fl Neutrophils % (Manual) (40-60) % Band Neutrophils % (0-10) % Lymphocytes % (Manual) (20-40) % Atypical Lymphs % % Monocytes % (Manual) (2-10) % Eosinophils % (Manual) (0.7-5.8) % Basophils % (Manual) (0.1-1.2) Platelet Estimate RBC Morph Comment ESR (0-20) mm/hr PT (9.5-12.1) SECONDS INR Fibrinogen 396 (187-446) mg/dL Sodium (136-145) mEq/L Potassium (3.5-5.1) mEq/L Chloride (98-107) mEq/L Carbon Dioxide (21-32) mEq/L Anion Gap (5-15) BUN (7-18) mg/dL Creatinine (0.55-1.02) mg/dL Est Cr Clr Drug Dosing mL/min Estimated GFR (MDRD) (>60) mL/min BUN/Creatinine Ratio (14-18) Glucose (83-115) mg/dL POC Glucose 145 H (83-110) mg/dL Calcium (8.5-10.1) mg/dL Magnesium (1.8-2.4) mg/dl Total Bilirubin (0.2-1.0) mg/dL AST (15-37) U/L ALT (14-59) U/L Alkaline Phosphatase (46-116) U/L Creatine Kinase (26-192) U/L CK-MB (CK-2) (0-3.6) ng/ml Troponin I (0.00-0.056) ng/mL C-Reactive Protein (<1.0) mg/dL NT-Pro-B Natriuret Pep (0-450) pg/mL Total Protein (6.4-8.2) g/dl Albumin (3.4-5.0) g/dl Globulin gm/dL Albumin/Globulin Ratio (1-2) Urine Color (Yellow) Urine Appearance (Clear) Urine pH (5.0-8.0) Ur Specific [place] (1.005-1.030) Urine Protein (Negative) Urine Glucose (UA) (Negative) Urine Ketones (Negative) Urine Occult Blood (Negative) Urine Nitrite (Negative) Urine Bilirubin (Negative) Urine Urobilinogen (0.2-1.0) Ur Leukocyte Esterase (Negative) Urine RBC (0-5) /hpf Urine WBC (0-5) /hpf Ur Epithelial Cells (0-5) /hpf Urine Bacteria (FEW) /hpf Hyaline Casts (0-5) /lpf Urine Mucus (FEW) /hpf Blood Type A POSITIVE 11/29/17 11/29/17 11/29/17 Range/Units 10:09 10:09 10:09 WBC 11.99 H (3.98-10.04) K/mm3 RBC 5.63 H (3.98-5.22) M/mm3 Hgb 16.4 H (11.2-15.7) gm/L Hct 50.3 H (34.1-44.9) % MCV 89.3 (79.4-94.8) fl MCH 29.1 (25.6-32.2) pg MCHC 32.6 (32.2-35.5) g/dl RDW Std Deviation 45.3 (36.4-46.3) fL Plt Count 157 L (182-369) K/mm3 MPV 11.8 (9.4-12.3) fl Neutrophils % (Manual) 89 H (40-60) % Band Neutrophils % 0 (0-10) % Lymphocytes % (Manual) 9 L (20-40) % Atypical Lymphs % 0 % Monocytes % (Manual) 2 (2-10) % Eosinophils % (Manual) 0 L (0.7-5.8) % Basophils % (Manual) 0 L (0.1-1.2) Platelet Estimate Adequate RBC Morph Comment Normal ESR (0-20) mm/hr PT 21.4 H (9.5-12.1) SECONDS INR 1.99 Fibrinogen (187-446) mg/dL Sodium 142 (136-145) mEq/L Potassium 2.8 L (3.5-5.1) mEq/L Chloride 101 (98-107) mEq/L Carbon Dioxide 27 (21-32) mEq/L Anion Gap 16.8 H (5-15) BUN 22 H (7-18) mg/dL Creatinine 1.3 H (0.55-1.02) mg/dL Est Cr Clr Drug Dosing 22.31 mL/min Estimated GFR (MDRD) 39 (>60) mL/min BUN/Creatinine Ratio 16.9 (14-18) Glucose 128 H (83-115) mg/dL POC Glucose (83-110) mg/dL Calcium 9.7 (8.5-10.1) mg/dL Magnesium 1.6 L (1.8-2.4) mg/dl Total Bilirubin 1.5 H (0.2-1.0) mg/dL AST 27 (15-37) U/L ALT 12 L (14-59) U/L Alkaline Phosphatase 94 (46-116) U/L Creatine Kinase 263 H (26-192) U/L CK-MB (CK-2) 3.7 H (0-3.6) ng/ml Troponin I < 0.017 (0.00-0.056) ng/mL C-Reactive Protein 11.5 H* (<1.0) mg/dL NT-Pro-B Natriuret Pep (0-450) pg/mL Total Protein 8.3 H (6.4-8.2) g/dl Albumin 4.2 (3.4-5.0) g/dl Globulin 4.1 gm/dL Albumin/Globulin Ratio 1.0 (1-2) Urine Color (Yellow) Urine Appearance (Clear) Urine pH (5.0-8.0) Ur Specific [place] (1.005-1.030) Urine Protein (Negative) Urine Glucose (UA) (Negative) Urine Ketones (Negative) Urine Occult Blood (Negative) Urine Nitrite (Negative) Urine Bilirubin (Negative) Urine Urobilinogen (0.2-1.0) Ur Leukocyte Esterase (Negative) Urine RBC (0-5) /hpf Urine WBC (0-5) /hpf Ur Epithelial Cells (0-5) /hpf Urine Bacteria (FEW) /hpf Hyaline Casts (0-5) /lpf Urine Mucus (FEW) /hpf Blood Type 11/29/17 11/29/17 11/29/17 Range/Units 10:09 10:09 10:39 WBC (3.98-10.04) K/mm3 RBC (3.98-5.22) M/mm3 Hgb (11.2-15.7) gm/L Hct (34.1-44.9) % MCV (79.4-94.8) fl MCH (25.6-32.2) pg MCHC (32.2-35.5) g/dl RDW Std Deviation (36.4-46.3) fL Plt Count (182-369) K/mm3 MPV (9.4-12.3) fl Neutrophils % (Manual) (40-60) % Band Neutrophils % (0-10) % Lymphocytes % (Manual) (20-40) % Atypical Lymphs % % Monocytes % (Manual) (2-10) % Eosinophils % (Manual) (0.7-5.8) % Basophils % (Manual) (0.1-1.2) Platelet Estimate RBC Morph Comment ESR 21 H (0-20) mm/hr PT (9.5-12.1) SECONDS INR Fibrinogen (187-446) mg/dL Sodium (136-145) mEq/L Potassium (3.5-5.1) mEq/L Chloride (98-107) mEq/L Carbon Dioxide (21-32) mEq/L Anion Gap (5-15) BUN (7-18) mg/dL Creatinine (0.55-1.02) mg/dL Est Cr Clr Drug Dosing mL/min Estimated GFR (MDRD) (>60) mL/min BUN/Creatinine Ratio (14-18) Glucose (83-115) mg/dL POC Glucose (83-110) mg/dL Calcium (8.5-10.1) mg/dL Magnesium (1.8-2.4) mg/dl Total Bilirubin (0.2-1.0) mg/dL AST (15-37) U/L ALT (14-59) U/L Alkaline Phosphatase (46-116) U/L Creatine Kinase (26-192) U/L CK-MB (CK-2) (0-3.6) ng/ml Troponin I (0.00-0.056) ng/mL C-Reactive Protein (<1.0) mg/dL NT-Pro-B Natriuret Pep 1420 H (0-450) pg/mL Total Protein (6.4-8.2) g/dl Albumin (3.4-5.0) g/dl Globulin gm/dL Albumin/Globulin Ratio (1-2) Urine Color Yellow (Yellow) Urine Appearance Clear (Clear) Urine pH 7.0 (5.0-8.0) Ur Specific [place] 1.025 (1.005-1.030) Urine Protein 3+ H (Negative) Urine Glucose (UA) Negative (Negative) Urine Ketones Trace H (Negative) Urine Occult Blood Trace-lysed H (Negative) Urine Nitrite Negative (Negative) Urine Bilirubin Negative (Negative) Urine Urobilinogen 0.2 (0.2-1.0) Ur Leukocyte Esterase Negative (Negative) Urine RBC 0-5 (0-5) /hpf Urine WBC 0-5 (0-5) /hpf Ur Epithelial Cells Not seen (0-5) /hpf Urine Bacteria Not seen (FEW) /hpf Hyaline Casts 0-5 (0-5) /lpf Urine Mucus Few (FEW) /hpf Blood Type 11/29/17 Range/Units 18:40 WBC (3.98-10.04) K/mm3 RBC (3.98-5.22) M/mm3 Hgb (11.2-15.7) gm/L Hct (34.1-44.9) % MCV (79.4-94.8) fl MCH (25.6-32.2) pg MCHC (32.2-35.5) g/dl RDW Std Deviation (36.4-46.3) fL Plt Count (182-369) K/mm3 MPV (9.4-12.3) fl Neutrophils % (Manual) (40-60) % Band Neutrophils % (0-10) % Lymphocytes % (Manual) (20-40) % Atypical Lymphs % % Monocytes % (Manual) (2-10) % Eosinophils % (Manual) (0.7-5.8) % Basophils % (Manual) (0.1-1.2) Platelet Estimate RBC Morph Comment ESR (0-20) mm/hr PT 12.4 H (9.5-12.1) SECONDS INR 1.14 Fibrinogen (187-446) mg/dL Sodium (136-145) mEq/L Potassium (3.5-5.1) mEq/L Chloride (98-107) mEq/L Carbon Dioxide (21-32) mEq/L Anion Gap (5-15) BUN (7-18) mg/dL Creatinine (0.55-1.02) mg/dL Est Cr Clr Drug Dosing mL/min Estimated GFR (MDRD) (>60) mL/min BUN/Creatinine Ratio (14-18) Glucose (83-115) mg/dL POC Glucose (83-110) mg/dL Calcium (8.5-10.1) mg/dL Magnesium (1.8-2.4) mg/dl Total Bilirubin (0.2-1.0) mg/dL AST (15-37) U/L ALT (14-59) U/L Alkaline Phosphatase (46-116) U/L Creatine Kinase (26-192) U/L CK-MB (CK-2) (0-3.6) ng/ml Troponin I (0.00-0.056) ng/mL C-Reactive Protein (<1.0) mg/dL NT-Pro-B Natriuret Pep (0-450) pg/mL Total Protein (6.4-8.2) g/dl Albumin (3.4-5.0) g/dl Globulin gm/dL Albumin/Globulin Ratio (1-2) Urine Color (Yellow) Urine Appearance (Clear) Urine pH (5.0-8.0) Ur Specific [place] (1.005-1.030) Urine Protein (Negative) Urine Glucose (UA) (Negative) Urine Ketones (Negative) Urine Occult Blood (Negative) Urine Nitrite (Negative) Urine Bilirubin (Negative) Urine Urobilinogen (0.2-1.0) Ur Leukocyte Esterase (Negative) Urine RBC (0-5) /hpf Urine WBC (0-5) /hpf Ur Epithelial Cells (0-5) /hpf Urine Bacteria (FEW) /hpf Hyaline Casts (0-5) /lpf Urine Mucus (FEW) /hpf Blood Type Result Diagrams: 11/30/17 05:47 11/30/17 05:47 - Problem List (1) Atrial fibrillation SNOMED Code(s): 15655975 ICD Code: I48.91 - UNSPECIFIED ATRIAL FIBRILLATION Status: Acute Current Visit: Yes (2) Pacemaker ECG pattern SNOMED Code(s): 635478987 ICD Code: Z95.0 - PRESENCE OF CARDIAC PACEMAKER Status: Acute Current Visit: Yes (3) CAD (coronary artery disease) SNOMED Code(s): 46030798 ICD Code: I25.10 - ATHSCL HEART DISEASE OF [place] CORONARY ARTERY W/O ANG PCTRS Status: Acute Current Visit: Yes (4) Myocardial infarction, old SNOMED Code(s): 4865471 ICD Code: I25.2 - OLD MYOCARDIAL INFARCTION Status: Acute Current Visit: Yes (5) Hypertension SNOMED Code(s): 09710598 ICD Code: I10 - ESSENTIAL (PRIMARY) HYPERTENSION Status: Acute Current Visit: Yes Qualifiers: Hypertension type: unspecified Qualified Code(s): I10 - Essential (primary ) hypertension (6) Hypokalemia SNOMED Code(s): 28333093 ICD Code: E87.6 - HYPOKALEMIA Status: Acute Current Visit: Yes (7) Hypomagnesemia SNOMED Code(s): 268528191 ICD Code: E83.42 - HYPOMAGNESEMIA Status: Acute Current Visit: Yes (8) Intracerebral bleed SNOMED Code(s): 803983724 ICD Code: I61.9 - NONTRAUMATIC INTRACEREBRAL HEMORRHAGE, UNSPECIFIED Status : Acute Current Visit: Yes Qualifiers: Intracerebral hemorrhage etiology: nontraumatic Cerebral hemorrhage location: cerebral hemisphere, subcortical portion Laterality: left Qualified Code(s): I61.0 - Nontraumatic intracerebral hemorrhage in hemisphere, subcortical Problem List Initiated/Reviewed/Updated: Yes Orders Last 24hrs: Active Orders 24 hr Category Date Time Status Admission Status [Patient Status] [ADT] Routine ADT 11/29/17 16:48 Active Blood Glucose Check, Bedside [RC] ONETIME Care 11/29/17 09:36 Active EKG Documentation Completion [RC] STAT Care 11/29/17 09:36 Active Chest 1V Frontal [CR] Stat Exams 11/29/17 09:34 Taken ABO/RH TYPE [BBK] Stat Lab 11/29/17 10:04 Results CULTURE BLOOD [BC] Stat Lab 11/29/17 10:04 Received CULTURE BLOOD [BC] Stat Lab 11/29/17 10:15 Received FRESH FROZEN PLASMA [BBK] Stat Lab 11/29/17 10:04 Results PATIENT RETYPE [BBK] Stat Lab 11/29/17 10:04 Results URINALYSIS W/MICROSCOPIC [UA W/MICROSCOPIC] [URIN] Stat Lab 11/29/17 10:39 Ordered Dextrose 5%-0.9% NaCl [Dextrose 5%-Normal Saline] 1,000 Med 11/29/17 10:00 Active ml IV ASDIRECTED Blood Culture x2 Reflex Set [OM.PC] Stat Oth 11/29/17 09:36 Ordered Transfuse Fresh Frozen Plasma [COMM] Stat Oth 11/29/17 11:41 Ordered Medication Orders Dextrose/Sodium Chloride (Dextrose 5%-Normal Saline) 1,000 mls @ 150 mls/hr IV ASDIRECTED [facility] Last Admin: 11/29/17 10:04 Dose: 150 mls/hr Assessment/Plan Comment:: Impression: Acute mental status change Basal Ganglia hemorrhage History of A Fib on Coumadin S/P KCentra, FFP and Vitamin K S/P PPM~A Fib History of CAD/MT Chronic Hypothyroid HTN HLD Plan ICU with neurochecks BP Control Home meds as appropriate Hold Coumadin Daily labs DVT/GI prophylaxis DNR/DNI comfort care Consult PT/OT/CM Disposition, SNF
[2017-11-29] MEDS ORDERED: Metoprolol Tartrate 5 MG/5 ML SDV IVPUSH PRN (20:50)
[2017-11-29] MEDS ORDERED: Non-Formulary Medication 1 Each (Atorvastatin 20 MG) PO SCH (21:00)
[2017-11-29] MEDS: cloNIDine 0.1 MG Tab PO SCH (22:01)
[2017-11-29] MEDS: Simvastatin 20 MG Tab PO SCH (22:02)
[2017-11-30] MEDS: Levothyroxine 50 MCG Tab PO SCH (06:56)
--- NOTE | 2017-11-30 07:27 | CR ---
Chest: Portable view of the chest was obtained. Comparison: No prior chest x-ray. Heart is slightly enlarged. Mild tortuosity of the thoracic aorta is seen. Pacemaker is noted. Lungs are clear with no acute parenchymal change. Pulmonary vessels show slight upper lobe redistribution. Bony structures are grossly intact. Impression: 1. Cardiomegaly with mild upper lobe pulmonary vascular redistribution. Diagnostic code #3
[2017-11-30] MEDS ORDERED: Magnesium Sulfate/Water 4 GM in Premix Bag 1 BAG IV SCH (08:00)
[2017-11-30] MEDS: Potassium Chloride 10 MEQ in Premix Bag 1 BAG IV SCH ×6 (10:02→19:52)
[2017-11-30] MEDS: Magnesium Sulfate/Water 2 GM in Premix Bag 1 BAG IV SCH ×2 (10:02→11:48)
[2017-11-30] MEDS: Famotidine 20 MG Tab PO SCH (10:03)
[2017-11-30] MEDS: Lisinopril 10 MG Tab PO SCH ×2 (10:03→18:24)
[2017-11-30] MEDS: cloNIDine 0.1 MG Tab PO SCH ×2 (10:04→20:19)
[2017-11-30] MEDS: Metoprolol Succinate 25 MG Tab.ER PO SCH (10:04)
[2017-11-30] MEDS: amLODIPine 10 MG Tab PO SCH (10:06)
--- NOTE | 2017-11-30 14:19 | CT ---
Head CT Technique: Multiple axial sections through the brain were obtained. Intravenous contrast was not utilized. Comparison: Prior head CT study of 11/29/17. Findings: Stable appearing hemorrhage is seen within the left basal ganglia. Mild amount of surrounding edema is seen which is also stable. Mild midline shift is seen which is also stable. Senescent change is seen which is unchanged. No acute intracranial abnormality is seen from prior exam. No acute calvarial abnormality is seen. Mild mucosal thickening remains within the left sphenoid sinus. Impression: 1. Stable hemorrhage within the left basal ganglia. 2. Other findings as noted above are also stable. Diagnostic code #3
[2017-11-30] MEDS ORDERED: Magnesium Sulfate/Water 4 GM in Premix Bag 1 BAG IV ONE (14:33)
[2017-11-30] MEDS: Potassium Chloride 20 MEQ Tab.ER PO SCH ×2 (16:17→20:33)
--- NOTE | 2017-11-30 17:31 | PCM.PN ---
- General Info Date of Service: 11/30/17 Admission Dx/Problem (Free Text): Admission Diagnosis/Problem Admission Diagnosis/Problem Intracerebral hemorrhage Subjective Update: In to see Makenzie. Overall she looks alert and comfortable, but is still very confused and disoriented. She is able to follow commands, but is unable to answer questions and has garbled speech. Per nursing, she has difficulty walking and needs assistance when going to the bathroom- she is not able to walk much more than that. Good appetite. Urinating. No other concerns from nursing. Functional Status: Reports: Pain Controlled, Tolerating Diet, Ambulating, Urinating - Review of Systems General: Reports: Weakness HEENT: Reports: Other (Impaired vision, Hard of hearing) Neurological: Reports: Confusion, Difficulty Walking, Weakness Psychiatric: Reports: Confusion Systems Review Comment:: Unable to attain d/t AMS s/p intracranial hemorrhage - Patient Data Vitals - Most Recent: Last Vital Signs Temp 99 F 11/30/17 16:00 Pulse 79 11/30/17 16:00 Resp 26 H 11/30/17 16:00 BP 137/60 11/30/17 16:00 Pulse Ox 96 11/30/17 16:00 Weight - Most Recent: 125 lb I&O - Last 24 Hours: Intake & Output 11/30/17 11/30/17 11/30/17 06:59 14:59 22:59 Intake Total 300 415 Output Total 150 550 Balance -150 -250 415 Lab Results Last 24 Hours: Laboratory Results - last 24 hr 11/29/17 11/29/17 11/30/17 Range/Units 10:04 18:40 05:47 WBC 9.76 (3.98-10.04) K/mm3 RBC 5.03 (3.98-5.22) M/mm3 Hgb 15.2 (11.2-15.7) gm/L Hct 45.8 H (34.1-44.9) % MCV 91.1 (79.4-94.8) fl MCH 30.2 (25.6-32.2) pg MCHC 33.2 (32.2-35.5) g/dl RDW Std Deviation 45.8 (36.4-46.3) fL Plt Count 152 L (182-369) K/mm3 MPV 11.9 (9.4-12.3) fl Neut % (Auto) 71.2 H (34.0-71.1) % Lymph % (Auto) 17.1 L (19.3-51.7) % [place] % (Auto) 9.7 (4.7-12.5) % Eos % (Auto) 1.5 (0.7-5.8) Baso % (Auto) 0.3 (0.1-1.2) % Neut # (Auto) 6.94 H (1.56-6.13) K/mm3 Lymph # (Auto) 1.67 (1.18-3.74) K/mm3 [place] # (Auto) 0.95 H (0.24-0.36) K/mm3 Eos # (Auto) 0.15 (0.04-0.36) K/mm3 Baso # (Auto) 0.03 (0.01-0.08) K/mm3 PT 12.4 H (9.5-12.1) SECONDS INR 1.14 Sodium (136-145) mEq/L Potassium (3.5-5.1) mEq/L Chloride (98-107) mEq/L Carbon Dioxide (21-32) mEq/L Anion Gap (5-15) BUN (7-18) mg/dL Creatinine (0.55-1.02) mg/dL Est Cr Clr Drug Dosing mL/min Estimated GFR (MDRD) (>60) mL/min BUN/Creatinine Ratio (14-18) Glucose (83-115) mg/dL Lactic Acid (0.4-2.0) mmol/L Calcium (8.5-10.1) mg/dL Magnesium (1.8-2.4) mg/dl C-Reactive Protein (<1.0) mg/dL Triglycerides (<150) mg/dL Cholesterol (<200) mg/dL LDL Cholesterol Direct (<100) mg/dL HDL Cholesterol (40-59) mg/dL TSH 3rd Generation (0.358-3.74) uIU/mL Blood Type A POSITIVE 11/30/17 11/30/17 11/30/17 Range/Units 05:47 05:47 05:47 WBC (3.98-10.04) K/mm3 RBC (3.98-5.22) M/mm3 Hgb (11.2-15.7) gm/L Hct (34.1-44.9) % MCV (79.4-94.8) fl MCH (25.6-32.2) pg MCHC (32.2-35.5) g/dl RDW Std Deviation (36.4-46.3) fL Plt Count (182-369) K/mm3 MPV (9.4-12.3) fl Neut % (Auto) (34.0-71.1) % Lymph % (Auto) (19.3-51.7) % [place] % (Auto) (4.7-12.5) % Eos % (Auto) (0.7-5.8) Baso % (Auto) (0.1-1.2) % Neut # (Auto) (1.56-6.13) K/mm3 Lymph # (Auto) (1.18-3.74) K/mm3 [place] # (Auto) (0.24-0.36) K/mm3 Eos # (Auto) (0.04-0.36) K/mm3 Baso # (Auto) (0.01-0.08) K/mm3 PT 11.9 (9.5-12.1) SECONDS INR 1.09 Sodium 143 (136-145) mEq/L Potassium 2.7 L (3.5-5.1) mEq/L Chloride 104 (98-107) mEq/L Carbon Dioxide 30 (21-32) mEq/L Anion Gap 11.7 (5-15) BUN 15 (7-18) mg/dL Creatinine 1.0 (0.55-1.02) mg/dL Est Cr Clr Drug Dosing 29.01 mL/min Estimated GFR (MDRD) 53 (>60) mL/min BUN/Creatinine Ratio 15.0 (14-18) Glucose 114 (83-115) mg/dL Lactic Acid 1.0 (0.4-2.0) mmol/L Calcium 9.0 (8.5-10.1) mg/dL Magnesium 1.4 L (1.8-2.4) mg/dl C-Reactive Protein 8.8 H* (<1.0) mg/dL Triglycerides 102 (<150) mg/dL Cholesterol 138 (<200) mg/dL LDL Cholesterol Direct 74 (<100) mg/dL HDL Cholesterol 51.0 (40-59) mg/dL TSH 3rd Generation 1.402 (0.358-3.74) uIU/mL Blood Type Rafael Results Last 24 Hours: Microbiology 11/29/17 10:04 Aerobic Blood Culture - Preliminary Blood - Venous NO GROWTH AFTER 1 DAY Anaerobic Blood Culture - Preliminary NO GROWTH AFTER 1 DAY 11/29/17 10:15 Aerobic Blood Culture - Preliminary Blood - Venous - Lab Draw NO GROWTH AFTER 1 DAY Anaerobic Blood Culture - Preliminary NO GROWTH AFTER 1 DAY Med Orders - Current: Current Medications Amlodipine Besylate (Norvasc) 10 mg PO DAILY [facility] Last Admin: 11/30/17 10:06 Dose: 10 mg Clonidine HCl (Catapres) 0.2 mg PO BID [facility] Last Admin: 11/30/17 10:04 Dose: 0.2 mg Famotidine (Pepcid) 20 mg PO DAILY [facility] Last Admin: 11/30/17 10:03 Dose: 20 mg Hydrochlorothiazide (Hydrochlorothiazide) 25 mg PO DAILY [facility] Magnesium Sulfate 4 gm/ Premix 100 mls @ 300 mls/hr IV ASDIRECTED [facility] Stop: 12/01/17 08:19 Levothyroxine Sodium (Synthroid) 50 mcg PO ACBRK [facility] Last Admin: 11/30/17 06:56 Dose: 50 mcg Lisinopril (Prinivil) 10 mg PO BIDPC [facility] Last Admin: 11/30/17 10:03 Dose: 10 mg Metoprolol Succinate (Toprol Xl) 25 mg PO DAILY [facility] Last Admin: 11/30/17 10:04 Dose: 25 mg Metoprolol Tartrate (Lopressor) 5 mg IVPUSH Q6H PRN PRN Reason: heart rate >120 Potassium Chloride (Klor-Con M20) 60 meq PO BID [facility] Last Admin: 11/30/17 16:17 Dose: Not Given Simvastatin (Zocor) 20 mg PO BEDTIME [facility] Last Admin: 11/29/17 22:02 Dose: 20 mg Discontinued Medications Factor IX (Pha) (Kcentra) 1,400 unit IVPUSH ONETIME ONE Stop: 11/29/17 12:01 Last Admin: 11/30/17 16:04 Dose: Not Given Dextrose/Sodium Chloride (Dextrose 5%-Normal Saline) 1,000 mls @ 150 mls/hr IV ASDIRECTED [facility] Last Admin: 11/29/17 10:04 Dose: 150 mls/hr Phytonadione 5 mg/ Sodium (Chloride) 50.5 mls @ 100 mls/hr IV NOW ONE Stop: 11/29/17 11:03 Last Admin: 11/29/17 11:36 Dose: 100 mls/hr Nicardipine HCl 25 mg/ Sodium (Chloride) 260 mls @ 52 mls/hr IV ASDIRECTED [facility] Last Admin: 11/29/17 12:15 Dose: 5 mg/hr, 52 mls/hr Potassium Chloride 10 meq/ (Premix) 100 mls @ 100 mls/hr IV ONETIME ONE Stop: 11/29/17 13:05 Last Admin: 11/29/17 12:23 Dose: 100 mls/hr Nicardipine HCl 25 mg/ Sodium (Chloride) 260 mls @ 104 mls/hr IV TITRATE CARON Nicardipine HCl 25 mg/ Sodium (Chloride) 260 mls @ 78 mls/hr IV ASDIRECTED [facility] Nicardipine HCl 25 mg/ Sodium (Chloride) 260 mls @ 52 mls/hr IV ASDIRECTED [facility] Magnesium Sulfate 2 gm/ Premix 50 mls @ 25 mls/hr IV Q1H [facility] Stop: 11/30/17 10:29 Last Admin: 11/30/17 11:48 Dose: 25 mls/hr Potassium Chloride 10 meq/ (Premix) 100 mls @ 100 mls/hr IV Q1H [facility] Stop: 11/30/17 14:29 Last Admin: 11/30/17 15:51 Dose: 100 mls/hr Magnesium Sulfate 4 gm/ Premix 100 mls @ 50 mls/hr IV ONETIME ONE Stop: 11/30/17 16:32 Last Admin: 11/30/17 15:58 Dose: Not Given Magnesium Sulfate 4 gm/ Premix 100 mls @ 300 mls/hr IV ASDIRECTED [facility] Stop: 11/30/17 08:19 Last Admin: 11/30/17 16:58 Dose: Not Given - Exam Quality Assessment: DVT Prophylaxis General: Alert, Cooperative (able to follow commands), No Acute Distress HEENT: Pupils Equal, Pupils Reactive, EOMI, Mucous Membr. Moist/[place] Neck: Supple Lungs: Clear to Auscultation, Normal Respiratory Effort Cardiovascular: Regular Rate, Irregular Rhythm (h/o afib) GI/Abdominal Exam: Normal Bowel Sounds, Soft, Non-Tender, No Organomegaly, No Distention, No Abnormal Bruit, No Mass, Pelvis Stable (Female) Exam: Deferred Back Exam: Normal Inspection, Decreased Range of Motion Extremities: Normal Inspection, Normal Range of Motion, Non-Tender, No Pedal Edema, Normal Capillary Refill Peripheral Pulses: 2+: Posterior Tibial (L), Posterior Tibial (R), Dorsalis Pedis (L), Dorsalis Pedis (R) Skin: Warm, Dry, Intact Neurological: No New Focal Deficit, Cranial Nerves Intact (grossly) Psy/Mental Status: Alert, Normal Affect, Normal Mood, Other (disoriented x3) - Problem List & Annotations (1) Altered mental status, unspecified SNOMED Code(s): 205452285 Code(s): R41.82 - ALTERED MENTAL STATUS, UNSPECIFIED Status: Acute Priority: High Current Visit: Yes Qualifiers: Altered mental status type: unspecified Qualified Code(s): R41.82 - Altered mental status, unspecified (2) Atrial fibrillation SNOMED Code(s): 49547884 Code(s): I48.91 - UNSPECIFIED ATRIAL FIBRILLATION Status: Chronic Priority: Medium Current Visit: Yes Qualifiers: Atrial fibrillation type: unspecified Qualified Code(s): I48.91 - Unspecified atrial fibrillation (3) CAD (coronary artery disease) SNOMED Code(s): 98207769 Code(s): I25.10 - ATHSCL HEART DISEASE OF [place] CORONARY ARTERY W/O ANG PCTRS Status: Chronic Priority: Medium Current Visit: Yes Qualifiers: Coronary Disease-Associated Artery/Lesion type: unspecified vessel or lesion type [place] vs. transplanted heart: [place] heart Associated angina: angina presence unspecified Qualified Code(s): I25.10 - Atherosclerotic heart disease of [place] coronary artery without angina pectoris (4) Hypertension SNOMED Code(s): 49836696 Code(s): I10 - ESSENTIAL (PRIMARY) HYPERTENSION Status: Chronic Priority : High Current Visit: Yes Qualifiers: Hypertension type: unspecified Qualified Code(s): I10 - Essential (primary ) hypertension (5) Hypokalemia SNOMED Code(s): 64946068 Code(s): E87.6 - HYPOKALEMIA Status: Acute Priority: High Current Visit : Yes (6) Hypomagnesemia SNOMED Code(s): 187867076 Code(s): E83.42 - HYPOMAGNESEMIA Status: Acute Priority: High Current Visit: Yes (7) Intracerebral bleed SNOMED Code(s): 253986209 Code(s): I61.9 - NONTRAUMATIC INTRACEREBRAL HEMORRHAGE, UNSPECIFIED Status : Acute Priority: High Current Visit: Yes Qualifiers: Intracerebral hemorrhage etiology: nontraumatic Cerebral hemorrhage location: cerebral hemisphere, subcortical portion Laterality: left Qualified Code(s): I61.0 - Nontraumatic intracerebral hemorrhage in hemisphere, subcortical (8) Myocardial infarction, old SNOMED Code(s): 7613008 Code(s): I25.2 - OLD MYOCARDIAL INFARCTION Status: Chronic Priority: Medium Current Visit: Yes (9) Pacemaker ECG pattern SNOMED Code(s): 973528844 Code(s): Z95.0 - PRESENCE OF CARDIAC PACEMAKER Status: Chronic Priority: Low Current Visit: Yes - Problem List Review Problem List Initiated/Reviewed/Updated: Yes - Plan Plan:: I/P: Basal Ganglia hemorrhage * AMS, found lying on the floor at [facility] * Per daughter, does not want surgical intervention or to be transferred; Neurosurgeon in [facility] consulted by ED * Most likely 2/2 HTN * Head CT 11/29/17: * 3.1cm acute parenchymal hemorrhage mostly within the left basal ganglia * This hemorrhage causes mild mass effect upon the lateral left ventricle * Senscent change as noted above * h/o Afib on coumadin * KCentra, FFP, Vit K given in ED * INR before reversal was 1.9--> Daily PT/INR checks * Hold Coumadin and ASA * Repeat Head CT 11/30/17: * Stable hemorrhage within the left basal ganglia * Repeat Head CT Thursday12/01/17 and Thursday12/02/17 * TRAUMA COORDINATOR consult--> no evidence of dysphagia; regular diet/thin liquids * Repeat TRAUMA COORDINATOR consult 12/03/17 * Monitor Acute mental status change * Confused, disoriented, difficulty walking, garbled speech * Most likely 2/2 to above * U/A in ED--> negative * Blood glucose in ED--> elevated at 128 * EKG in ED--> V-paced rhythm * Troponin negative in ED; CKMB elevated 3.7 * CXR in ED --> Cardiomegaly with mild upper lobe pulmonary vascular redistribution * Blood Cultures ordered in ED--> no growth x1 day * Ambulation with Assistance Electrolyte Abnormalities * Mg 1.6 * K 2.8 * Replenish as needed Resolved: HTN, Improved * Acute on Chronic * 188/66 in ED--> 137/60 * Nicardipine drip started in ED --> D/C * Start Lisinopril 10 BID; hold if SBP <130 * BP Goal 140 systolic per neurosurgeon at [facility] Chronic: H/o CO x3 years ago CAD s/p Triple bypass and 2 stents AFib on Coumadin with PPM CKD III * eGFR 39-->53 * BUN 22, Cr 1.3 * U/A 3+ proteinuria Hypothyroid HLD Adenocarcinoma Plan: Transferred to ICU Neurochecks Q6H Daily labs BP Control Home meds as appropriate Hold Coumadin and ASA Regular diet; aspiration precautions d/t AMS DVT/GI prophylaxis--> DALILA and SCD Ambulate with assistance as tolerated TRAUMA COORDINATOR Consult Consult PT/OT Consult SW/CM--> Most likely will need SNF placement; currently AL ([facility]) PCP: Dr. Yonatan Pedersen; Code status DNR/DNI Most likely D/C Thursday12/04/17 pending clinical disposition
[2017-11-30] MEDS: Simvastatin 20 MG Tab PO SCH (20:20)
[2017-12-01] MEDS: Acetaminophen 325 MG Tab PO PRN ×2 (01:57→09:11)
[2017-12-01] MEDS ORDERED: Magnesium Sulfate/Water 4 GM in Premix Bag 1 BAG IV SCH (08:00)
[2017-12-01] MEDS: Levothyroxine 50 MCG Tab PO SCH (08:32)
[2017-12-01] MEDS: Lisinopril 10 MG Tab PO SCH ×2 (09:08→17:20)
[2017-12-01] MEDS: Potassium Chloride 20 MEQ Tab.ER PO SCH ×2 (09:08→20:37)
[2017-12-01] MEDS: Hydrochlorothiazide 25 MG Tab PO SCH (09:08)
[2017-12-01] MEDS: Famotidine 20 MG Tab PO SCH (09:08)
[2017-12-01] MEDS: amLODIPine 10 MG Tab PO SCH (09:09)
[2017-12-01] MEDS: cloNIDine 0.1 MG Tab PO SCH ×2 (09:09→20:40)
[2017-12-01] MEDS: Metoprolol Succinate 25 MG Tab.ER PO SCH (09:09)
--- NOTE | 2017-12-01 11:23 | CT ---
Head CT Technique: Multiple axial sections to the brain were obtained. Comparison: Prior head CT exam of 11/30/17 and 11/29/17. Findings: Stable hemorrhage is again seen within the left basal ganglia. Mass effect is seen upon the lateral left ventricle with mild midline shift which is stable. Senescent change is noted which is stable. Nothing acute is otherwise seen. Impression: 1. Stable left-sided basal ganglia hemorrhage with stable mass effect. 2. Senescent change also remain stable. Nothing acute is seen on prior study. Diagnostic code #3
--- NOTE | 2017-12-01 18:41 | PCM.PN ---
<Chari Coreas - Last Filed: 12/01/17 19:39> - General Info Date of Service: 12/01/17 Admission Dx/Problem (Free Text): Admission Diagnosis/Problem Admission Diagnosis/Problem Intracerebral hemorrhage Subjective Update: In to see Makenzie. Overall she looks alert and comfortable and seems to be able to communicate better today than yesterday. Overall she is still confused and disoriented, but she has been able to make more sense when answering questions today. Per nursing, she has difficulty walking and needs 1-2+ assistance when going to the bathroom. She did not sleep well last night- may have only had 2 hours of sleep per nursing, so she has been very lethargic today and taking naps throughout the day. Speech therapy has been working with her and have found that she can read and write and have started the use of communication boards. Good appetite. Urinating. No other concerns from nursing. SW has talked to the family regarding SNF placement- she was accepted at both [facility] and [facility]. Per family, they would like her to go to [facility]. She will most likely be D/C'd to [facility] SNF Thursday pending clinical disposition. 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8) fl MCH 30.0 (25.6-32.2) pg MCHC 33.4 (32.2-35.5) g/dl RDW Std Deviation 44.2 (36.4-46.3) fL Plt Count 155 L (182-369) K/mm3 MPV 11.7 (9.4-12.3) fl Neut % (Auto) 73.0 H (34.0-71.1) % Lymph % (Auto) 17.1 L (19.3-51.7) % [place] % (Auto) 9.0 (4.7-12.5) % Eos % (Auto) 0.4 L (0.7-5.8) Baso % (Auto) 0.3 (0.1-1.2) % Neut # (Auto) 8.51 H (1.56-6.13) K/mm3 Lymph # (Auto) 1.99 (1.18-3.74) K/mm3 [place] # (Auto) 1.05 H (0.24-0.36) K/mm3 Eos # (Auto) 0.05 (0.04-0.36) K/mm3 Baso # (Auto) 0.04 (0.01-0.08) K/mm3 PT 11.4 (9.5-12.1) SECONDS INR 1.05 Sodium 135 L (136-145) mEq/L Potassium 3.2 L (3.5-5.1) mEq/L Chloride 98 (98-107) mEq/L Carbon Dioxide 27 (21-32) mEq/L Anion Gap 13.2 (5-15) BUN 19 H (7-18) mg/dL Creatinine 1.1 H (0.55-1.02) mg/dL Est Cr Clr Drug Dosing 26.37 mL/min Estimated GFR (MDRD) 47 (>60) mL/min BUN/Creatinine Ratio 17.3 (14-18) Glucose 107 (83-115) mg/dL Calcium 8.9 (8.5-10.1) mg/dL Magnesium 2.1 (1.8-2.4) mg/dl Rafael Results Last 24 Hours: Microbiology 11/29/17 10:04 Aerobic Blood Culture - Preliminary Blood - Venous NO GROWTH AFTER 2 DAYS Anaerobic Blood Culture - Preliminary NO GROWTH AFTER 2 DAYS 11/29/17 10:15 Aerobic Blood Culture - Preliminary Blood - Venous - Lab Draw NO GROWTH AFTER 2 DAYS Anaerobic Blood Culture - Preliminary NO GROWTH AFTER 2 DAYS Med Orders - Current: Current Medications Acetaminophen (Tylenol) 650 mg PO Q4H PRN PRN Reason: Pain/Fever Last Admin: 12/01/17 09:11 Dose: 650 mg Amlodipine Besylate (Norvasc) 10 mg PO DAILY [facility] Last Admin: 12/01/17 09:09 Dose: 10 mg Clonidine HCl (Catapres) 0.2 mg PO BID [facility] Last Admin: 12/01/17 09:09 Dose: 0.2 mg Famotidine (Pepcid) 20 mg PO DAILY [facility] Last Admin: 12/01/17 09:08 Dose: 20 mg Hydrochlorothiazide (Hydrochlorothiazide) 25 mg PO DAILY [facility] Last Admin: 12/01/17 09:08 Dose: 25 mg Levothyroxine Sodium (Synthroid) 50 mcg PO ACBRK [facility] Last Admin: 12/01/17 08:32 Dose: 50 [facility] Last Admin: 12/01/17 17:20 Dose: 10 mg Metoprolol Succinate (Toprol Xl) 25 mg PO DAILY [facility] Last Admin: 12/01/17 09:09 Dose: 25 mg Metoprolol Tartrate (Lopressor) 5 mg IVPUSH Q6H PRN PRN Reason: heart rate >120 Potassium Chloride (Klor-Con M20) 60 meq PO BID [facility] Last Admin: 12/01/17 09:08 Dose: 60 meq Simvastatin (Zocor) 20 mg PO BEDTIME [facility] Last Admin: 11/30/17 20:20 Dose: 20 mg Discontinued Medications Factor IX (Pha) (Kcentra) 1,400 unit IVPUSH ONETIME ONE Stop: 11/29/17 12:01 Last Admin: 11/30/17 16:04 Dose: Not Given Dextrose/Sodium Chloride (Dextrose 5%-Normal Saline) 1,000 mls @ 150 mls/hr IV ASDIRECTED [facility] Last Admin: 11/29/17 10:04 Dose: 150 mls/hr Phytonadione 5 mg/ Sodium (Chloride) 50.5 mls @ 100 mls/hr IV NOW ONE Stop: 11/29/17 11:03 Last Admin: 11/29/17 11:36 Dose: 100 mls/hr Nicardipine HCl 25 mg/ Sodium (Chloride) 260 mls @ 52 mls/hr IV ASDIRECTED [facility] Last Admin: 11/29/17 12:15 Dose: 5 mg/hr, 52 mls/hr Potassium Chloride 10 meq/ (Premix) 100 mls @ 100 mls/hr IV ONETIME ONE Stop: 11/29/17 13:05 Last Admin: 11/29/17 12:23 Dose: 100 mls/hr Nicardipine HCl 25 mg/ Sodium (Chloride) 260 mls @ 104 mls/hr IV TITRATE [facility]ON Nicardipine HCl 25 mg/ Sodium (Chloride) 260 mls @ 78 mls/hr IV ASDIRECTED [facility] Nicardipine HCl 25 mg/ Sodium (Chloride) 260 mls @ 52 mls/hr IV ASDIRECTED [facility] Magnesium Sulfate 2 gm/ Premix 50 mls @ 25 mls/hr IV Q1H [facility] Stop: 11/30/17 10:29 Last Admin: 11/30/17 11:48 Dose: 25 mls/hr Potassium Chloride 10 meq/ (Premix) 100 mls @ 100 mls/hr IV Q1H [facility] Stop: 11/30/17 14:29 Last Admin: 11/30/17 19:52 Dose: 50 mls/hr Magnesium Sulfate 4 gm/ Premix 100 mls @ 50 mls/hr IV ONETIME ONE Stop: 11/30/17 16:32 Last Admin: 11/30/17 15:58 Dose: Not Given Magnesium Sulfate 4 gm/ Premix 100 mls @ 300 mls/hr IV ASDIRECTED [facility] Stop: 11/30/17 08:19 Last Admin: 11/30/17 16:58 Dose: Not Given Magnesium Sulfate 4 gm/ Premix 100 mls @ 300 mls/hr IV ASDIRECTED [facility] Stop: 12/01/17 08:19 Last Admin: 12/01/17 09:04 Dose: Not Given - Exam Quality Assessment: DVT Prophylaxis General: Alert, Cooperative, No Acute Distress. No: Oriented HEENT: Pupils Reactive, EOMI, Mucous Membr. Moist/Pavo. No: Pupils Equal (L>R) Neck: Supple Lungs: Clear to Auscultation, Normal Respiratory Effort Cardiovascular: Regular Rate, Irregular Rhythm (h/o afib) GI/Abdominal Exam: Normal Bowel Sounds, Soft, Non-Tender, No Organomegaly, No Distention, No Abnormal Bruit, No Mass, Pelvis Stable (Female) Exam: Deferred Back Exam: Normal Inspection, Decreased Range of Motion Extremities: Normal Inspection, Normal Range of Motion, Non-Tender, No Pedal Edema, Normal Capillary Refill Peripheral Pulses: 2+: Posterior Tibial (L), Posterior Tibial (R), Dorsalis Pedis (L), Dorsalis Pedis (R) Skin: Warm, Dry, Intact Neurological: No New Focal Deficit, Cranial Nerves Intact (grossly) Psy/Mental Status: Alert, Normal Affect, Normal Mood, Other (Confused, disoriented x3, able to follow commands, garbled speech) - Problem List & Annotations (1) Altered mental status, unspecified SNOMED Code(s): 915798976 Code(s): R41.82 - ALTERED MENTAL STATUS, UNSPECIFIED Status: Acute Priority: High Current Visit: Yes Qualifiers: Altered mental status type: unspecified Qualified Code(s): R41.82 - Altered mental status, unspecified (2) Atrial fibrillation SNOMED Code(s): 08883555 Code(s): I48.91 - UNSPECIFIED ATRIAL FIBRILLATION Status: Chronic Priority: Medium Current Visit: Yes Qualifiers: Atrial fibrillation type: unspecified Qualified Code(s): I48.91 - Unspecified atrial fibrillation (3) CAD (coronary artery disease) SNOMED Code(s): 90521201 Code(s): I25.10 - ATHSCL HEART DISEASE OF [place] CORONARY ARTERY W/O ANG PCTRS Status: Chronic Priority: Medium Current Visit: Yes Qualifiers: Coronary Disease-Associated Artery/Lesion type: unspecified vessel or lesion type [place] vs. transplanted heart: [place] heart Associated angina: angina presence unspecified Qualified Code(s): I25.10 - Atherosclerotic heart disease of [place] coronary artery without angina pectoris (4) Hypertension SNOMED Code(s): 88180793 Code(s): I10 - ESSENTIAL (PRIMARY) HYPERTENSION Status: Chronic Priority : High Current Visit: Yes Qualifiers: Hypertension type: unspecified Qualified Code(s): I10 - Essential (primary ) hypertension (5) Hypokalemia SNOMED Code(s): 76425716 Code(s): E87.6 - HYPOKALEMIA Status: Acute Priority: High Current Visit : Yes (6) Hypomagnesemia SNOMED Code(s): 484171785 Code(s): E83.42 - HYPOMAGNESEMIA Status: Acute Priority: High Current Visit: Yes (7) Intracerebral bleed SNOMED Code(s): 693433298 Code(s): I61.9 - NONTRAUMATIC INTRACEREBRAL HEMORRHAGE, UNSPECIFIED Status : Acute Priority: High Current Visit: Yes Qualifiers: Intracerebral hemorrhage etiology: nontraumatic Cerebral hemorrhage location: cerebral hemisphere, subcortical portion Laterality: left Qualified Code(s): I61.0 - Nontraumatic intracerebral hemorrhage in hemisphere, subcortical (8) Myocardial infarction, old SNOMED Code(s): 9413871 Code(s): I25.2 - OLD MYOCARDIAL INFARCTION Status: Chronic Priority: Medium Current Visit: Yes (9) Pacemaker ECG pattern SNOMED Code(s): 643563779 Code(s): Z95.0 - PRESENCE OF CARDIAC PACEMAKER Status: Chronic Priority: Low Current Visit: Yes - Problem List Review Problem List Initiated/Reviewed/Updated: Yes - My Orders Last 24 Hours: My Active Orders 12/02/17 09:00 Head wo Cont [CT] DAILY 12/03/17 09:00 [employer] Evaluation and Treatment [CONS] Routine - Plan Plan:: I/P: Basal Ganglia hemorrhage * AMS, found lying on the floor at [place] * Per daughter, does not want surgical intervention or to be transferred; Neurosurgeon in [facility] consulted by ED * Most likely 2/2 HTN * Head CT 11/29/17: * 3.1cm acute parenchymal hemorrhage mostly within the left basal ganglia * This hemorrhage causes mild mass effect upon the lateral left ventricle * Senscent change as noted above * h/o Afib on coumadin * KCentra, FFP, Vit K given in ED * INR before reversal was 1.9--> Daily PT/INR checks * Hold Coumadin and ASA * Repeat Head CT 11/30/17: * Stable hemorrhage within the left basal ganglia * Repeat Head CT 12/01/17: * Stable left-sided basal ganglia hemorrhage with stable mass effect * Repeat Head CT 12/02/17 * Monitor Acute mental status change * Confused, disoriented, difficulty walking, garbled speech * Most likely 2/2 to above * U/A in ED--> negative * Blood glucose in ED--> elevated at 128 * EKG in ED--> V-paced rhythm * Troponin negative in ED; CKMB elevated 3.7 * CXR in ED --> Cardiomegaly with mild upper lobe pulmonary vascular redistribution * Blood Cultures ordered in ED--> no growth x1 day * Ambulation with Assistance * [employer] consult: * No evidence of dysphagia--> regular diet/thin liquids * Wernicke's Aphasia, Word finding deficit, Comprehension difficulty, Able to read and write * Recommend verbal communication, yes/no questions, and use of communication boards * Recommend continued therapy at SNF * Repeat [employer] consult 12/03/17 * PT/OT recommend SNF/continued therapy Electrolyte Abnormalities * Mg 1.6 * K 2.8 * Replenish as needed Resolved: HTN, Improved * Acute on Chronic * 188/66 in ED--> 137/60 * Nicardipine drip started in ED --> D/C * Start Lisinopril 10 BID; hold if SBP <130 * BP Goal 140 systolic per neurosurgeon at [facility] Chronic: H/o SD x3 years ago CAD s/p Triple bypass and 2 stents AFib on Coumadin with PPM CKD III * eGFR 39-->53 * BUN 22, Cr 1.3 * U/A 3+ proteinuria Hypothyroid HLD Adenocarcinoma Plan: Transferred to ICU Neurochecks Q6H Daily labs BP Control Home meds as appropriate Hold Coumadin and ASA Regular diet; aspiration precautions d/t AMS DVT/GI prophylaxis--> DALILA and SCD Ambulate with assistance as tolerated [employer] Consult Consult PT/OT--> Recommend SNF placement/continued therapy for walking, strengthening and self care Consult SW/CM--> Most likely will need SNF placement; currently [place] ([facility] [place]--> Family requests [facility] SNF PCP: Dr. Yonatan Pedersen; Code status DNR/DNI Most likely D/C Thursday12/04/17 to [facility] pending clinical disposition LOS > 96hrs due to slow response to treatment and SNF placement. <Sarah Elaine M - Last Filed: 12/02/17 14:22> - Patient Data Vitals - Most Recent: Last Vital Signs Temp 35.9 C 12/02/17 12:00 Pulse 87 12/02/17 08:15 Resp 18 12/02/17 12:00 BP 151/79 H 12/02/17 12:00 Pulse Ox 100 12/02/17 12:00 I&O - Last 24 Hours: Intake & Output 12/01/17 12/02/17 12/02/17 22:59 06:59 14:59 Intake Total 980 276 1684 Output Total 1200 600 Balance 290 -610 470 Lab Results Last 24 Hours: Laboratory Results - last 24 hr 12/02/17 12/02/17 12/02/17 Range/Units 05:40 05:40 05:40 WBC 9.83 (3.98-10.04) K/mm3 RBC 5.42 H (3.98-5.22) M/mm3 Hgb 16.3 H (11.2-15.7) gm/L Hct 48.5 H (34.1-44.9) % MCV 89.5 (79.4-94.8) fl MCH 30.1 (25.6-32.2) pg MCHC 33.6 (32.2-35.5) g/dl RDW Std Deviation 44.2 (36.4-46.3) fL Plt Count 178 L (182-369) K/mm3 MPV 11.7 (9.4-12.3) fl Neut % (Auto) 63.3 (34.0-71.1) % Lymph % (Auto) 22.8 (19.3-51.7) % [place] % (Auto) 10.6 (4.7-12.5) % Eos % (Auto) 2.5 (0.7-5.8) Baso % (Auto) 0.5 (0.1-1.2) % Neut # (Auto) 6.22 H (1.56-6.13) K/mm3 Lymph # (Auto) 2.24 (1.18-3.74) K/mm3 [place] # (Auto) 1.04 H (0.24-0.36) K/mm3 Eos # (Auto) 0.25 (0.04-0.36) K/mm3 Baso # (Auto) 0.05 (0.01-0.08) K/mm3 PT 11.6 (9.5-12.1) SECONDS INR 1.07 Sodium 138 (136-145) mEq/L Potassium 4.2 (3.5-5.1) mEq/L Chloride 103 (98-107) mEq/L Carbon Dioxide 25 (21-32) mEq/L Anion Gap 14.2 (5-15) BUN 29 H (7-18) mg/dL Creatinine 1.2 H (0.55-1.02) mg/dL Est Cr Clr Drug Dosing 24.17 mL/min Estimated GFR (MDRD) 43 (>60) mL/min BUN/Creatinine Ratio 24.2 H (14-18) Glucose 141 H (83-115) mg/dL Calcium 9.6 (8.5-10.1) mg/dL Magnesium 2.1 (1.8-2.4) mg/dl Rafael Results Last 24 Hours: Microbiology 11/29/17 10:04 Aerobic Blood Culture - Preliminary Blood - Venous NO GROWTH AFTER 3 DAYS Anaerobic Blood Culture - Preliminary NO GROWTH AFTER 3 DAYS 11/29/17 10:15 Aerobic Blood Culture - Preliminary Blood - Venous - Lab Draw NO GROWTH AFTER 3 DAYS Anaerobic Blood Culture - Preliminary NO GROWTH AFTER 3 DAYS Med Orders - Current: Current Medications Acetaminophen (Tylenol) 650 mg PO Q4H PRN PRN Reason: Pain/Fever Last Admin: 12/01/17 09:11 Dose: 650 mg Amlodipine Besylate (Norvasc) 10 mg PO DAILY [facility] Last Admin: 12/02/17 08:15 Dose: 10 mg Clonidine HCl (Catapres) 0.2 mg PO BID [facility] Last Admin: 12/02/17 08:16 Dose: 0.2 mg Famotidine (Pepcid) 20 mg PO DAILY [facility] Last Admin: 12/02/17 08:16 Dose: 20 mg Hydrochlorothiazide (Hydrochlorothiazide) 25 mg PO DAILY [facility] Last Admin: 12/02/17 08:16 Dose: 25 mg Levothyroxine Sodium (Synthroid) 50 mcg PO ACBRK [facility] Last Admin: 12/02/17 05:00 Dose: 50 mcg [facility] Last Admin: 12/02/17 08:16 Dose: 10 mg Lorazepam (Ativan) 0.25 mg IVPUSH Q8H PRN PRN Reason: Anxiety Last Admin: 12/01/17 20:41 Dose: 0.25 mg Metoprolol Succinate (Toprol Xl) 25 mg PO DAILY [facility] Last Admin: 12/02/17 08:15 Dose: 25 mg Metoprolol Tartrate (Lopressor) 5 mg IVPUSH Q6H PRN PRN Reason: heart rate >120 Potassium Chloride (Klor-Con M20) 60 meq PO BID [facility] Last Admin: 12/02/17 08:15 Dose: 60 meq Simvastatin (Zocor) 20 mg PO BEDTIME [facility] Last Admin: 12/01/17 20:39 Dose: 20 mg Discontinued Medications Factor IX (Pha) (Kcentra) 1,400 unit IVPUSH ONETIME ONE Stop: 11/29/17 12:01 Last Admin: 11/30/17 16:04 Dose: Not Given Dextrose/Sodium Chloride (Dextrose 5%-Normal Saline) 1,000 mls @ 150 mls/hr IV ASDIRECTED [facility] Last Admin: 11/29/17 10:04 Dose: 150 mls/hr Phytonadione 5 mg/ Sodium (Chloride) 50.5 mls @ 100 mls/hr IV NOW ONE Stop: 11/29/17 11:03 Last Admin: 11/29/17 11:36 Dose: 100 mls/hr Nicardipine HCl 25 mg/ Sodium (Chloride) 260 mls @ 52 mls/hr IV ASDIRECTED [facility] Last Admin: 11/29/17 12:15 Dose: 5 mg/hr, 52 mls/hr Potassium Chloride 10 meq/ (Premix) 100 mls @ 100 mls/hr IV ONETIME ONE Stop: 11/29/17 13:05 Last Admin: 11/29/17 12:23 Dose: 100 mls/hr Nicardipine HCl 25 mg/ Sodium (Chloride) 260 mls @ 104 mls/hr IV TITRATE CARON Nicardipine HCl 25 mg/ Sodium (Chloride) 260 mls @ 78 mls/hr IV ASDIRECTED [facility] Nicardipine HCl 25 mg/ Sodium (Chloride) 260 mls @ 52 mls/hr IV ASDIRECTED [facility] Magnesium Sulfate 2 gm/ Premix 50 mls @ 25 mls/hr IV Q1H [facility] Stop: 11/30/17 10:29 Last Admin: 11/30/17 11:48 Dose: 25 mls/hr Potassium Chloride 10 meq/ (Premix) 100 mls @ 100 mls/hr IV Q1H [facility] Stop: 11/30/17 14:29 Last Admin: 11/30/17 19:52 Dose: 50 mls/hr Magnesium Sulfate 4 gm/ Premix 100 mls @ 50 mls/hr IV ONETIME ONE Stop: 11/30/17 16:32 Last Admin: 11/30/17 15:58 Dose: Not Given Magnesium Sulfate 4 gm/ Premix 100 mls @ 300 mls/hr IV ASDIRECTED [facility] Stop: 11/30/17 08:19 Last Admin: 11/30/17 16:58 Dose: Not Given Magnesium Sulfate 4 gm/ Premix 100 mls @ 300 mls/hr IV ASDIRECTED [facility] Stop: 12/01/17 08:19 Last Admin: 12/01/17 09:04 Dose: Not Given - Problem List & Annotations (1) Atrial fibrillation SNOMED Code(s): 73922021 Code(s): I48.91 - UNSPECIFIED ATRIAL FIBRILLATION Status: Chronic Priority: Medium Current Visit: Yes Qualifiers: Atrial fibrillation type: unspecified Qualified Code(s): I48.91 - Unspecified atrial fibrillation (2) Pacemaker ECG pattern SNOMED Code(s): 944376380 Code(s): Z95.0 - PRESENCE OF CARDIAC PACEMAKER Status: Chronic Priority: Low Current Visit: Yes (3) CAD (coronary artery disease) SNOMED Code(s): 09538235 Code(s): I25.10 - ATHSCL HEART DISEASE OF [place] CORONARY ARTERY W/O ANG PCTRS Status: Chronic Priority: Medium Current Visit: Yes Qualifiers: Coronary Disease-Associated Artery/Lesion type: unspecified vessel or lesion type [place] vs. transplanted heart: [place] heart Associated angina: angina presence unspecified Qualified Code(s): I25.10 - Atherosclerotic heart disease of [place] coronary artery without angina pectoris (4) Myocardial infarction, old SNOMED Code(s): 6764451 Code(s): I25.2 - OLD MYOCARDIAL INFARCTION Status: Chronic Priority: Medium Current Visit: Yes (5) Hypertension SNOMED Code(s): 36916532 Code(s): I10 - ESSENTIAL (PRIMARY) HYPERTENSION Status: Chronic Priority : High Current Visit: Yes Qualifiers: Hypertension type: unspecified Qualified Code(s): I10 - Essential (primary ) hypertension (6) Hypokalemia SNOMED Code(s): 17722725 Code(s): E87.6 - HYPOKALEMIA Status: Acute Priority: High Current Visit : Yes (7) Hypomagnesemia SNOMED Code(s): 365111773 Code(s): E83.42 - HYPOMAGNESEMIA Status: Acute Priority: High Current Visit: Yes (8) Intracerebral bleed SNOMED Code(s): 096257689 Code(s): I61.9 - NONTRAUMATIC INTRACEREBRAL HEMORRHAGE, UNSPECIFIED Status : Acute Priority: High Current Visit: Yes Qualifiers: Intracerebral hemorrhage etiology: nontraumatic Cerebral hemorrhage location: cerebral hemisphere, subcortical portion Laterality: left Qualified Code(s): I61.0 - Nontraumatic intracerebral hemorrhage in hemisphere, subcortical - Problem List Review Problem List Initiated/Reviewed/Updated: Yes - My Orders Last 24 Hours: My Active Orders 12/01/17 19:22 LORazepam [Ativan] 0.25 mg IVPUSH Q8H PRN 12/02/17 11:06 Admission Status [Patient Status] [ADT] Routine 12/03/17 05:00 BMP [BASIC METABOLIC PANEL,BMP] [CHEM] DAILY CBC WITH AUTO DIFF [HEME] DAILY INR,PT,PROTHROMBIN TIME [COAG] DAILY MAGNESIUM [CHEM] DAILY
[2017-12-01] MEDS: Simvastatin 20 MG Tab PO SCH (20:39)
[2017-12-01] MEDS: LORazepam 2 MG/ML SDV IVPUSH PRN (20:41)
[2017-12-02] MEDS: Levothyroxine 50 MCG Tab PO SCH (05:00)
[2017-12-02] MEDS: Potassium Chloride 20 MEQ Tab.ER PO SCH ×2 (08:15→20:06)
[2017-12-02] MEDS: amLODIPine 10 MG Tab PO SCH (08:15)
[2017-12-02] MEDS: Metoprolol Succinate 25 MG Tab.ER PO SCH (08:15)
[2017-12-02] MEDS: Famotidine 20 MG Tab PO SCH (08:16)
[2017-12-02] MEDS: cloNIDine 0.1 MG Tab PO SCH ×2 (08:16→20:18)
[2017-12-02] MEDS: Hydrochlorothiazide 25 MG Tab PO SCH (08:16)
[2017-12-02] MEDS: Lisinopril 10 MG Tab PO SCH ×2 (08:16→17:37)
--- NOTE | 2017-12-02 14:25 | PCM.PN ---
- General Info Date of Service: 12/02/17 Functional Status: Reports: Tolerating Diet, Urinating - Review of Systems General: Reports: No Symptoms HEENT: Reports: No Symptoms Pulmonary: Reports: No Symptoms Cardiovascular: Reports: No Symptoms Gastrointestinal: Reports: No Symptoms Genitourinary: Reports: No Symptoms Musculoskeletal: Reports: No Symptoms Skin: Reports: No Symptoms Neurological: Reports: Confusion Psychiatric: Reports: Confusion - Patient Data Vitals - Most Recent: Last Vital Signs Temp 35.9 C 12/02/17 12:00 Pulse 87 12/02/17 08:15 Resp 18 12/02/17 12:00 BP 151/79 H 12/02/17 12:00 Pulse Ox 100 12/02/17 12:00 Weight - Most Recent: 58.06 kg I&O - Last 24 Hours: Intake & Output 12/01/17 12/02/17 12/02/17 22:59 06:59 14:59 Intake Total 217 610 4237 Output Total 1200 600 Balance 290 -610 470 Lab Results Last 24 Hours: Laboratory Results - last 24 hr 12/02/17 12/02/17 12/02/17 Range/Units 05:40 05:40 05:40 WBC 9.83 (3.98-10.04) K/mm3 RBC 5.42 H (3.98-5.22) M/mm3 Hgb 16.3 H (11.2-15.7) gm/L Hct 48.5 H (34.1-44.9) % MCV 89.5 (79.4-94.8) fl MCH 30.1 (25.6-32.2) pg MCHC 33.6 (32.2-35.5) g/dl RDW Std Deviation 44.2 (36.4-46.3) fL Plt Count 178 L (182-369) K/mm3 MPV 11.7 (9.4-12.3) fl Neut % (Auto) 63.3 (34.0-71.1) % Lymph % (Auto) 22.8 (19.3-51.7) % [place] % (Auto) 10.6 (4.7-12.5) % Eos % (Auto) 2.5 (0.7-5.8) Baso % (Auto) 0.5 (0.1-1.2) % Neut # (Auto) 6.22 H (1.56-6.13) K/mm3 Lymph # (Auto) 2.24 (1.18-3.74) K/mm3 [place] # (Auto) 1.04 H (0.24-0.36) K/mm3 Eos # (Auto) 0.25 (0.04-0.36) K/mm3 Baso # (Auto) 0.05 (0.01-0.08) K/mm3 PT 11.6 (9.5-12.1) SECONDS INR 1.07 Sodium 138 (136-145) mEq/L Potassium 4.2 (3.5-5.1) mEq/L Chloride 103 (98-107) mEq/L Carbon Dioxide 25 (21-32) mEq/L Anion Gap 14.2 (5-15) BUN 29 H (7-18) mg/dL Creatinine 1.2 H (0.55-1.02) mg/dL Est Cr Clr Drug Dosing 24.17 mL/min Estimated GFR (MDRD) 43 (>60) mL/min BUN/Creatinine Ratio 24.2 H (14-18) Glucose 141 H (83-115) mg/dL Calcium 9.6 (8.5-10.1) mg/dL Magnesium 2.1 (1.8-2.4) mg/dl Rafael Results Last 24 Hours: Microbiology 11/29/17 10:04 Aerobic Blood Culture - Preliminary Blood - Venous NO GROWTH AFTER 3 DAYS Anaerobic Blood Culture - Preliminary NO GROWTH AFTER 3 DAYS 11/29/17 10:15 Aerobic Blood Culture - Preliminary Blood - Venous - Lab Draw NO GROWTH AFTER 3 DAYS Anaerobic Blood Culture - Preliminary NO GROWTH AFTER 3 DAYS Med Orders - Current: Current Medications Acetaminophen (Tylenol) 650 mg PO Q4H PRN PRN Reason: Pain/Fever Last Admin: 12/01/17 09:11 Dose: 650 mg Amlodipine Besylate (Norvasc) 10 mg PO DAILY [facility] Last Admin: 12/02/17 08:15 Dose: 10 mg Clonidine HCl (Catapres) 0.2 mg PO BID [facility] Last Admin: 12/02/17 08:16 Dose: 0.2 mg Famotidine (Pepcid) 20 mg PO DAILY [facility] Last Admin: 12/02/17 08:16 Dose: 20 mg Hydrochlorothiazide (Hydrochlorothiazide) 25 mg PO DAILY [facility] Last Admin: 12/02/17 08:16 Dose: 25 mg Levothyroxine Sodium (Synthroid) 50 mcg PO ACBRK [facility] Last Admin: 12/02/17 05:00 Dose: 50 mcg Lisinopril (Prinivil) 10 mg PO BIDPC [facility] Last Admin: 12/02/17 08:16 Dose: 10 mg Lorazepam (Ativan) 0.25 mg IVPUSH Q8H PRN PRN Reason: Anxiety Last Admin: 12/01/17 20:41 Dose: 0.25 mg Metoprolol Succinate (Toprol Xl) 25 mg PO DAILY [facility] Last Admin: 12/02/17 08:15 Dose: 25 mg Metoprolol Tartrate (Lopressor) 5 mg IVPUSH Q6H PRN PRN Reason: heart rate >120 Potassium Chloride (Klor-Con M20) 60 meq PO BID [facility] Last Admin: 12/02/17 08:15 Dose: 60 meq Simvastatin (Zocor) 20 mg PO BEDTIME [facility] Last Admin: 12/01/17 20:39 Dose: 20 mg Discontinued Medications Factor IX (Pha) (Kcentra) 1,400 unit IVPUSH ONETIME ONE Stop: 11/29/17 12:01 Last Admin: 11/30/17 16:04 Dose: Not Given Dextrose/Sodium Chloride (Dextrose 5%-Normal Saline) 1,000 mls @ 150 mls/hr IV ASDIRECTED [facility] Last Admin: 11/29/17 10:04 Dose: 150 mls/hr Phytonadione 5 mg/ Sodium (Chloride) 50.5 mls @ 100 mls/hr IV NOW ONE Stop: 11/29/17 11:03 Last Admin: 11/29/17 11:36 Dose: 100 mls/hr Nicardipine HCl 25 mg/ Sodium (Chloride) 260 mls @ 52 mls/hr IV ASDIRECTED [facility] Last Admin: 11/29/17 12:15 Dose: 5 mg/hr, 52 mls/hr Potassium Chloride 10 meq/ (Premix) 100 mls @ 100 mls/hr IV ONETIME ONE Stop: 11/29/17 13:05 Last Admin: 11/29/17 12:23 Dose: 100 mls/hr Nicardipine HCl 25 mg/ Sodium (Chloride) 260 mls @ 104 mls/hr IV TITRATE [facility]ON Nicardipine HCl 25 mg/ Sodium (Chloride) 260 mls @ 78 mls/hr IV ASDIRECTED [facility] Nicardipine HCl 25 mg/ Sodium (Chloride) 260 mls @ 52 mls/hr IV ASDIRECTED [facility] Magnesium Sulfate 2 gm/ Premix 50 mls @ 25 mls/hr IV Q1H [facility] Stop: 11/30/17 10:29 Last Admin: 11/30/17 11:48 Dose: 25 mls/hr Potassium Chloride 10 meq/ (Premix) 100 mls @ 100 mls/hr IV Q1H [facility] Stop: 11/30/17 14:29 Last Admin: 11/30/17 19:52 Dose: 50 mls/hr Magnesium Sulfate 4 gm/ Premix 100 mls @ 50 mls/hr IV ONETIME ONE Stop: 11/30/17 16:32 Last Admin: 11/30/17 15:58 Dose: Not Given Magnesium Sulfate 4 gm/ Premix 100 mls @ 300 mls/hr IV ASDIRECTED [facility] Stop: 11/30/17 08:19 Last Admin: 11/30/17 16:58 Dose: Not Given Magnesium Sulfate 4 gm/ Premix 100 mls @ 300 mls/hr IV ASDIRECTED [facility] Stop: 12/01/17 08:19 Last Admin: 12/01/17 09:04 Dose: Not Given - Exam Quality Assessment: DVT Prophylaxis General: Alert, Oriented, Cooperative, No Acute Distress HEENT: Pupils Equal, Pupils Reactive, EOMI Neck: Trachea Midline, No JVD Lungs: Normal Respiratory Effort Cardiovascular: Regular Rate, Regular Rhythm GI/Abdominal Exam: Normal Bowel Sounds, Soft, Non-Tender, No Organomegaly, No Distention (Female) Exam: Deferred Back Exam: Normal Inspection Extremities: Normal Inspection, Normal Capillary Refill Skin: Warm Neurological: No New Focal Deficit Psy/Mental Status: Alert, Normal Affect, Normal Mood - Problem List & Annotations (1) Atrial fibrillation SNOMED Code(s): 49546485 Code(s): I48.91 - UNSPECIFIED ATRIAL FIBRILLATION Status: Chronic Priority: Medium Current Visit: Yes Qualifiers: Atrial fibrillation type: unspecified Qualified Code(s): I48.91 - Unspecified atrial fibrillation (2) Pacemaker ECG pattern SNOMED Code(s): 597146702 Code(s): Z95.0 - PRESENCE OF CARDIAC PACEMAKER Status: Chronic Priority: Low Current Visit: Yes (3) CAD (coronary artery disease) SNOMED Code(s): 90856919 Code(s): I25.10 - ATHSCL HEART DISEASE OF [place] CORONARY ARTERY W/O ANG PCTRS Status: Chronic Priority: Medium Current Visit: Yes Qualifiers: Coronary Disease-Associated Artery/Lesion type: unspecified vessel or lesion type [place] vs. transplanted heart: [place] heart Associated angina: angina presence unspecified Qualified Code(s): I25.10 - Atherosclerotic heart disease of [place] coronary artery without angina pectoris (4) Myocardial infarction, old SNOMED Code(s): 6059612 Code(s): I25.2 - OLD MYOCARDIAL INFARCTION Status: Chronic Priority: Medium Current Visit: Yes (5) Hypertension SNOMED Code(s): 39724329 Code(s): I10 - ESSENTIAL (PRIMARY) HYPERTENSION Status: Chronic Priority : High Current Visit: Yes Qualifiers: Hypertension type: unspecified Qualified Code(s): I10 - Essential (primary ) hypertension (6) Hypokalemia SNOMED Code(s): 64436801 Code(s): E87.6 - HYPOKALEMIA Status: Acute Priority: High Current Visit : Yes (7) Hypomagnesemia SNOMED Code(s): 681638158 Code(s): E83.42 - HYPOMAGNESEMIA Status: Acute Priority: High Current Visit: Yes (8) Intracerebral bleed SNOMED Code(s): 395337170 Code(s): I61.9 - NONTRAUMATIC INTRACEREBRAL HEMORRHAGE, UNSPECIFIED Status : Acute Priority: High Current Visit: Yes Qualifiers: Intracerebral hemorrhage etiology: nontraumatic Cerebral hemorrhage location: cerebral hemisphere, subcortical portion Laterality: left Qualified Code(s): I61.0 - Nontraumatic intracerebral hemorrhage in hemisphere, subcortical - Problem List Review Problem List Initiated/Reviewed/Updated: Yes - My Orders Last 24 Hours: My Active Orders 12/01/17 19:22 LORazepam [Ativan] 0.25 mg IVPUSH Q8H PRN 12/02/17 11:06 Admission Status [Patient Status] [ADT] Routine 12/03/17 05:00 BMP [BASIC METABOLIC PANEL,BMP] [CHEM] DAILY CBC WITH AUTO DIFF [HEME] DAILY INR,PT,PROTHROMBIN TIME [COAG] DAILY MAGNESIUM [CHEM] DAILY - Plan Plan:: I/P: Basal Ganglia hemorrhage * AMS, found lying on the floor at [place] * Per daughter, does not want surgical intervention or to be transferred; Neurosurgeon in [facility] consulted by ED * Most likely 2/2 HTN * Head CT 11/29/17: * 3.1cm acute parenchymal hemorrhage mostly within the left basal ganglia * This hemorrhage causes mild mass effect upon the lateral left ventricle * Senscent change as noted above * h/o Afib on coumadin * KCentra, FFP, Vit K given in ED * INR before reversal was 1.9--> Daily PT/INR checks * Hold Coumadin and ASA * Repeat Head CT 11/30/17: * Stable hemorrhage within the left basal ganglia * Repeat Head CT 12/01/17: * Stable left-sided basal ganglia hemorrhage with stable mass effect * Repeat Head CT 12/02/17 * Monitor Acute mental status change * Confused, disoriented, difficulty walking, garbled speech * Most likely 2/2 to above * U/A in ED--> negative * Blood glucose in ED--> elevated at 128 * EKG in ED--> V-paced rhythm * Troponin negative in ED; CKMB elevated 3.7 * CXR in ED --> Cardiomegaly with mild upper lobe pulmonary vascular redistribution * Blood Cultures ordered in ED--> no growth x1 day * Ambulation with Assistance * SECURITY INTERN consult: * No evidence of dysphagia--> regular diet/thin liquids * Wernicke's Aphasia, Word finding deficit, Comprehension difficulty, Able to read and write * Recommend verbal communication, yes/no questions, and use of communication boards * Recommend continued therapy at SNF * Repeat SECURITY INTERN consult 12/03/17 * PT/OT recommend SNF/continued therapy Electrolyte Abnormalities * Mg 1.6 * K 2.8 * Replenish as needed Resolved: HTN, Improved * Acute on Chronic * 188/66 in ED--> 137/60 * Nicardipine drip started in ED --> D/C * Start Lisinopril 10 BID; hold if SBP <130 * BP Goal 140 systolic per neurosurgeon at [facility] Chronic: H/o [place] x3 years ago CAD s/p Triple bypass and 2 stents AFib on Coumadin with PPM CKD III * eGFR 39-->53 * BUN 22, Cr 1.3 * U/A 3+ proteinuria Hypothyroid HLD Adenocarcinoma Plan: Transferred to ICU Neurochecks Q6H Daily labs BP Control Home meds as appropriate Hold Coumadin and ASA Regular diet; aspiration precautions d/t AMS DVT/GI prophylaxis--> DALILA and SCD Ambulate with assistance as tolerated SECURITY INTERN Consult Consult PT/OT--> Recommend SNF placement/continued therapy for walking, strengthening and self care Consult SW/CM--> Most likely will need SNF placement; currently [facility] ([facility])--> Family requests [facility] SNF PCP: Dr. Yonatan Pedersen; Code status DNR/DNI Most likely D/C Thursday12/04/17 to [facility] pending clinical disposition LOS > 96hrs due to slow response to treatment and SNF placement.
[2017-12-02] MEDS: Simvastatin 20 MG Tab PO SCH (20:14)
[2017-12-02] MEDS: LORazepam 2 MG/ML SDV IVPUSH PRN (22:13)
[2017-12-03] MEDS: Levothyroxine 50 MCG Tab PO SCH (08:33)
[2017-12-03] MEDS: Potassium Chloride 20 MEQ Tab.ER PO SCH ×3 (10:02→20:57)
[2017-12-03] MEDS: cloNIDine 0.1 MG Tab PO SCH ×3 (10:05→20:57)
[2017-12-03] MEDS: Hydrochlorothiazide 25 MG Tab PO SCH (10:05)
[2017-12-03] MEDS: Metoprolol Succinate 25 MG Tab.ER PO SCH (10:06)
[2017-12-03] MEDS: amLODIPine 10 MG Tab PO SCH (10:06)
[2017-12-03] MEDS: Famotidine 20 MG Tab PO SCH (10:06)
[2017-12-03] MEDS: Lisinopril 10 MG Tab PO SCH ×2 (10:07→17:38)
--- NOTE | 2017-12-03 10:17 | CT ---
Head CT Technique: Multiple axial sections through the brain were obtained. Intravenous contrast was not utilized. Comparison: Previous intracranial imaging is available, most recent study is 12/02/17. Findings: Hemorrhage is seen within the left basal ganglia region which appears stable from prior head CT exams. Low density edema is seen around this area of hemorrhage which is stable. Senescent changes as previously described also remain stable. No new areas of intracranial hemorrhage are seen. No midline shift is noted. Mild stable mass effect noted upon the lateral left ventricle. Mild mucosal thickening seen within the left sphenoid sinus and left ethmoid sinus. No acute calvarial abnormality is seen. Impression: 1. Stable left sided hemorrhage. Other findings as noted above are also stable. Nothing acute is seen from prior head CT exam. Diagnostic code #3
--- NOTE | 2017-12-03 13:18 | PCM.PN ---
- General Info Date of Service: 12/03/17 Functional Status: Reports: Tolerating Diet - Review of Systems General: Reports: No Symptoms HEENT: Reports: No Symptoms Pulmonary: Reports: No Symptoms Cardiovascular: Reports: No Symptoms Gastrointestinal: Reports: No Symptoms Genitourinary: Reports: No Symptoms Musculoskeletal: Reports: No Symptoms Skin: Reports: No Symptoms Neurological: Reports: No Symptoms Psychiatric: Reports: Confusion (in the evening) - Patient Data Vitals - Most Recent: Last Vital Signs Temp 36.8 C 12/03/17 11:52 Pulse 68 12/03/17 11:52 Resp 18 12/03/17 11:52 BP 108/66 12/03/17 11:52 Pulse Ox 99 12/03/17 11:52 Weight - Most Recent: 58.423 kg I&O - Last 24 Hours: Intake & Output 12/02/17 12/03/17 12/03/17 22:59 06:59 14:59 Intake Total 120 620 120 Output Total 400 1050 Balance -280 -430 120 Lab Results Last 24 Hours: Laboratory Results - last 24 hr 12/03/17 12/03/17 12/03/17 Range/Units 06:30 06:30 06:30 WBC 10.13 H (3.98-10.04) K/mm3 RBC 5.22 (3.98-5.22) M/mm3 Hgb 15.3 (11.2-15.7) gm/L Hct 46.7 H (34.1-44.9) % MCV 89.5 (79.4-94.8) fl MCH 29.3 (25.6-32.2) pg MCHC 32.8 (32.2-35.5) g/dl RDW Std Deviation 44.1 (36.4-46.3) fL Plt Count 166 L (182-369) K/mm3 MPV 11.1 (9.4-12.3) fl Neut % (Auto) 70.9 (34.0-71.1) % Lymph % (Auto) 15.8 L (19.3-51.7) % [place] % (Auto) 11.4 (4.7-12.5) % Eos % (Auto) 1.3 (0.7-5.8) Baso % (Auto) 0.4 (0.1-1.2) % Neut # (Auto) 7.19 H (1.56-6.13) K/mm3 Lymph # (Auto) 1.60 (1.18-3.74) K/mm3 [place] # (Auto) 1.15 H (0.24-0.36) K/mm3 Eos # (Auto) 0.13 (0.04-0.36) K/mm3 Baso # (Auto) 0.04 (0.01-0.08) K/mm3 PT 11.9 (9.5-12.1) SECONDS INR 1.09 Sodium 140 (136-145) mEq/L Potassium 4.5 (3.5-5.1) mEq/L Chloride 105 (98-107) mEq/L Carbon Dioxide 23 (21-32) mEq/L Anion Gap 16.5 H (5-15) BUN 22 H (7-18) mg/dL Creatinine 1.1 H (0.55-1.02) mg/dL Est Cr Clr Drug Dosing 26.37 mL/min Estimated GFR (MDRD) 47 (>60) mL/min BUN/Creatinine Ratio 20.0 H (14-18) Glucose 118 H (83-115) mg/dL Calcium 9.5 (8.5-10.1) mg/dL Magnesium 1.8 (1.8-2.4) mg/dl Rafael Results Last 24 Hours: Microbiology 11/29/17 10:04 Aerobic Blood Culture - Preliminary Blood - Venous NO GROWTH AFTER 4 DAYS Anaerobic Blood Culture - Preliminary NO GROWTH AFTER 4 DAYS 11/29/17 10:15 Aerobic Blood Culture - Preliminary Blood - Venous - Lab Draw NO GROWTH AFTER 4 DAYS Anaerobic Blood Culture - Preliminary NO GROWTH AFTER 4 DAYS Med Orders - Current: Current Medications Acetaminophen (Tylenol) 650 mg PO Q4H PRN PRN Reason: Pain/Fever Last Admin: 12/01/17 09:11 Dose: 650 mg Amlodipine Besylate (Norvasc) 10 mg PO DAILY [facility] Last Admin: 12/03/17 10:06 Dose: 10 mg Clonidine HCl (Catapres) 0.2 mg PO BID [facility] Last Admin: 12/03/17 10:05 Dose: 0.2 mg Famotidine (Pepcid) 20 mg PO DAILY [facility] Last Admin: 12/03/17 10:06 Dose: 20 mg Hydrochlorothiazide (Hydrochlorothiazide) 25 mg PO DAILY [facility] Last Admin: 12/03/17 10:05 Dose: 25 mg Levothyroxine Sodium (Synthroid) 50 mcg PO ACBRK [facility] Last Admin: 12/03/17 08:33 Dose: 50 mcg Lisinopril (Prinivil) 10 mg PO BIDPC [facility] Last Admin: 12/03/17 10:07 Dose: 10 mg Lorazepam (Ativan) 0.25 mg IVPUSH Q8H PRN PRN Reason: Anxiety Last Admin: 12/02/17 22:13 Dose: 0.25 mg Metoprolol Succinate (Toprol Xl) 25 mg PO DAILY [facility] Last Admin: 12/03/17 10:06 Dose: 25 mg Metoprolol Tartrate (Lopressor) 5 mg IVPUSH Q6H PRN PRN Reason: heart rate >120 Potassium Chloride (Klor-Con M20) 60 meq PO BID [facility] Last Admin: 12/03/17 10:02 Dose: 60 meq Simvastatin (Zocor) 20 mg PO BEDTIME [facility] Last Admin: 12/02/17 20:14 Dose: 20 mg Discontinued Medications Factor IX (Pha) (Kcentra) 1,400 unit IVPUSH ONETIME ONE Stop: 11/29/17 12:01 Last Admin: 11/30/17 16:04 Dose: Not Given Dextrose/Sodium Chloride (Dextrose 5%-Normal Saline) 1,000 mls @ 150 mls/hr IV ASDIRECTED [facility] Last Admin: 11/29/17 10:04 Dose: 150 mls/hr Phytonadione 5 mg/ Sodium (Chloride) 50.5 mls @ 100 mls/hr IV NOW ONE Stop: 11/29/17 11:03 Last Admin: 11/29/17 11:36 Dose: 100 mls/hr Nicardipine HCl 25 mg/ Sodium (Chloride) 260 mls @ 52 mls/hr IV ASDIRECTED [facility] Last Admin: 11/29/17 12:15 Dose: 5 mg/hr, 52 mls/hr Potassium Chloride 10 meq/ (Premix) 100 mls @ 100 mls/hr IV ONETIME ONE Stop: 11/29/17 13:05 Last Admin: 11/29/17 12:23 Dose: 100 mls/hr Nicardipine HCl 25 mg/ Sodium (Chloride) 260 mls @ 104 mls/hr IV TITRATE [facility] Nicardipine HCl 25 mg/ Sodium (Chloride) 260 mls @ 78 mls/hr IV ASDIRECTED [facility] Nicardipine HCl 25 mg/ Sodium (Chloride) 260 mls @ 52 mls/hr IV ASDIRECTED [facility] Magnesium Sulfate 2 gm/ Premix 50 mls @ 25 mls/hr IV Q1H [facility] Stop: 11/30/17 10:29 Last Admin: 11/30/17 11:48 Dose: 25 mls/hr Potassium Chloride 10 meq/ (Premix) 100 mls @ 100 mls/hr IV Q1H [facility] Stop: 11/30/17 14:29 Last Admin: 11/30/17 19:52 Dose: 50 mls/hr Magnesium Sulfate 4 gm/ Premix 100 mls @ 50 mls/hr IV ONETIME ONE Stop: 11/30/17 16:32 Last Admin: 11/30/17 15:58 Dose: Not Given Magnesium Sulfate 4 gm/ Premix 100 mls @ 300 mls/hr IV ASDIRECTED [facility] Stop: 11/30/17 08:19 Last Admin: 11/30/17 16:58 Dose: Not Given Magnesium Sulfate 4 gm/ Premix 100 mls @ 300 mls/hr IV ASDIRECTED [facility] Stop: 12/01/17 08:19 Last Admin: 12/01/17 09:04 Dose: Not Given - Exam Quality Assessment: DVT Prophylaxis General: Alert, Oriented, Cooperative, No Acute Distress HEENT: Pupils Equal, Pupils Reactive, EOMI Neck: Trachea Midline, No JVD Lungs: Normal Respiratory Effort Cardiovascular: Regular Rate, Regular Rhythm GI/Abdominal Exam: Normal Bowel Sounds, Soft, Non-Tender, No Organomegaly, No Distention (Female) Exam: Deferred Back Exam: Normal Inspection Extremities: Non-Tender, No Pedal Edema, Normal Capillary Refill Skin: Warm Neurological: No New Focal Deficit Psy/Mental Status: Alert, Normal Affect, Normal Mood - Problem List & Annotations (1) Atrial fibrillation SNOMED Code(s): 31336168 Code(s): I48.91 - UNSPECIFIED ATRIAL FIBRILLATION Status: Chronic Priority: Medium Current Visit: Yes Qualifiers: Atrial fibrillation type: unspecified Qualified Code(s): I48.91 - Unspecified atrial fibrillation (2) Pacemaker ECG pattern SNOMED Code(s): 370632299 Code(s): Z95.0 - PRESENCE OF CARDIAC PACEMAKER Status: Chronic Priority: Low Current Visit: Yes (3) CAD (coronary artery disease) SNOMED Code(s): 85524239 Code(s): I25.10 - ATHSCL HEART DISEASE OF [place] CORONARY ARTERY W/O ANG PCTRS Status: Chronic Priority: Medium Current Visit: Yes Qualifiers: Coronary Disease-Associated Artery/Lesion type: unspecified vessel or lesion type [place] vs. transplanted heart: [place] heart Associated angina: angina presence unspecified Qualified Code(s): I25.10 - Atherosclerotic heart disease of [place] coronary artery without angina pectoris (4) Myocardial infarction, old SNOMED Code(s): 3042425 Code(s): I25.2 - OLD MYOCARDIAL INFARCTION Status: Chronic Priority: Medium Current Visit: Yes (5) Hypertension SNOMED Code(s): 14062840 Code(s): I10 - ESSENTIAL (PRIMARY) HYPERTENSION Status: Chronic Priority : High Current Visit: Yes Qualifiers: Hypertension type: unspecified Qualified Code(s): I10 - Essential (primary ) hypertension (6) Hypokalemia SNOMED Code(s): 97283475 Code(s): E87.6 - HYPOKALEMIA Status: Acute Priority: High Current Visit : Yes (7) Hypomagnesemia SNOMED Code(s): 437391852 Code(s): E83.42 - HYPOMAGNESEMIA Status: Acute Priority: High Current Visit: Yes (8) Intracerebral bleed SNOMED Code(s): 296784261 Code(s): I61.9 - NONTRAUMATIC INTRACEREBRAL HEMORRHAGE, UNSPECIFIED Status : Acute Priority: High Current Visit: Yes Qualifiers: Intracerebral hemorrhage etiology: nontraumatic Cerebral hemorrhage location: cerebral hemisphere, subcortical portion Laterality: left Qualified Code(s): I61.0 - Nontraumatic intracerebral hemorrhage in hemisphere, subcortical - Problem List Review Problem List Initiated/Reviewed/Updated: Yes - Plan Plan:: I/P: Basal Ganglia hemorrhage * AMS, found lying on the floor at [place] * Per daughter, does not want surgical intervention or to be transferred; Neurosurgeon in [facility] consulted by ED * Most likely 2/2 HTN * Head CT 11/29/17: * 3.1cm acute parenchymal hemorrhage mostly within the left basal ganglia * This hemorrhage causes mild mass effect upon the lateral left ventricle * Senscent change as noted above * h/o Afib on coumadin * KCentra, FFP, Vit K given in ED * INR before reversal was 1.9--> Daily PT/INR checks * Hold Coumadin and ASA * Repeat Head CT 11/30/17: * Stable hemorrhage within the left basal ganglia * Repeat Head CT 12/01/17: * Stable left-sided basal ganglia hemorrhage with stable mass effect * Repeat Head CT 12/02/17 * Monitor Acute mental status change * Confused, disoriented, difficulty walking, garbled speech * Most likely 2/2 to above * U/A in ED--> negative * Blood glucose in ED--> elevated at 128 * EKG in ED--> V-paced rhythm * Troponin negative in ED; CKMB elevated 3.7 * CXR in ED --> Cardiomegaly with mild upper lobe pulmonary vascular redistribution * Blood Cultures ordered in ED--> no growth x1 day * Ambulation with Assistance * MICROFILM MOUNTER consult: * No evidence of dysphagia--> regular diet/thin liquids * Wernicke's Aphasia, Word finding deficit, Comprehension difficulty, Able to read and write * Recommend verbal communication, yes/no questions, and use of communication boards * Recommend continued therapy at SNF * Repeat MICROFILM MOUNTER consult 12/03/17 * PT/OT recommend SNF/continued therapy Electrolyte Abnormalities * Mg 1.6 * K 2.8 * Replenish as needed Resolved: HTN, Improved * Acute on Chronic * 188/66 in ED--> 137/60 * Nicardipine drip started in ED --> D/C * Start Lisinopril 10 BID; hold if SBP <130 * BP Goal 140 systolic per neurosurgeon at [facility] Chronic: H/o [place] x3 years ago CAD s/p Triple bypass and 2 stents AFib on Coumadin with PPM CKD III * eGFR 39-->53 * BUN 22, Cr 1.3 * U/A 3+ proteinuria Hypothyroid HLD Adenocarcinoma Plan: MS with telemetry; stopped telemetry this am. Neurochecks Q6H Daily labs BP Control Home meds as appropriate Stop Coumadin and ASA-->reassessment by PCP/neurologist Regular diet; aspiration precautions d/t AMS DVT/GI prophylaxis--> DALILA and SCD Ambulate with assistance as tolerated MICROFILM MOUNTER Consult Consult PT/OT--> Recommend SNF placement/continued therapy for walking, strengthening and self care Consult SW/CM--> Most likely will need SNF placement; currently [place] ([facility])--> Family requests [facility] PCP: Dr. Yonatan Pedersen; Code status DNR/DNI Most likely D/C Thursday12/04/[address] [facility] pending clinical disposition LOS > 96hrs due to slow response to treatment and SNF placement.
[2017-12-03] MEDS: Acetaminophen 325 MG Tab PO PRN (17:38)
[2017-12-03] MEDS: LORazepam 2 MG/ML SDV IVPUSH PRN (17:39)
[2017-12-03] MEDS: Simvastatin 20 MG Tab PO SCH ×2 (20:49→20:57)
[2017-12-04] MEDS: LORazepam 2 MG/ML SDV IVPUSH PRN (01:23)
[2017-12-04] MEDS: Levothyroxine 50 MCG Tab PO SCH (06:59)
[2017-12-04] MEDS: Hydrochlorothiazide 25 MG Tab PO SCH (08:21)
[2017-12-04] MEDS: Famotidine 20 MG Tab PO SCH (08:22)
[2017-12-04] MEDS: cloNIDine 0.1 MG Tab PO SCH (08:22)
[2017-12-04] MEDS: Potassium Chloride 20 MEQ Tab.ER PO SCH (08:25)
[2017-12-04] MEDS: Lisinopril 10 MG Tab PO SCH (08:25)
[2017-12-04] MEDS: Metoprolol Succinate 25 MG Tab.ER PO SCH (08:26)
[2017-12-04] MEDS: amLODIPine 10 MG Tab PO SCH (08:26)
--- NOTE | 2017-12-04 10:59 | CT ---
Head CT Technique: Multiple axial sections through the brain were obtained. Intravenous contrast was not utilized. Comparison: Prior head CT study of 12/01/17. Findings: Stable appearing left basal ganglia hemorrhage is noted. Mild amount of surrounding edema is noted which is stable. Senescent change as previously described is stable. Nothing acute is otherwise seen. Slight mucosal thickening is seen within left sphenoid sinus which is stable. Impression: 1. Stable left basal ganglia hemorrhage and other stable findings. No significant change is seen from previous study. Diagnostic code #3 I agree with preliminary report from [facility], finalized at 12/02/17, 11:04 AM Central Time
--- NOTE | 2017-12-04 11:15 | PCM.DCSUM1 ---
Discharge Summary - Hospital Course Free Text/Narrative:: 87 year s/p hemorrhage in the left basal ganglia; received Kcentra, FFP and Vitamin K for therapy in the ED. Become more alert and aware during her hospitalization. All anticoagulation/antiplatelet were stopped. Multiple CT of the brain images were obtained, the infarct area within the left basal ganglia remained stable. The patient was initially in the ICU with frequent neurochecks, later she was moved to [place] with telemetry. Consultants: PT; OT; SP ; SW. Meds were adjusted for appropriate BP post CVA. *PCP: Dr. Yonatan Pedersen; Code status DNR/DNI *Disposition, [facility] Diagnosis Left basal ganglia hemorrhage A Fib on Coumadin, stopped on admission; S/P PPM CAD-stopped ASA t HPI Initial Comments: 87 year old female, a [place] resident was found in her home on the floor. Duration is unknown, at some point there was urine and bowel incontinence. ED work up documented a basal ganglia hemorrhage; there has been no known arrhythmia, or cardiac event. She however does have a history of A Fib. ECG documents a V-paced rhythm. She denies SOB, CP; overall there are no complaints voiced. INR before reversal was 1.9; CMP abnormalities K 2.8/Mg 1.6 ; BNP 1420; ESR WNL; TnI WNL. CT of brain without contrast: large intracerebral infarct with hemorrhage; there is a mild midline shift with compression of the lateral ventricle. Guidance from neuro-vascular service in [facility] was sought. BP goal will be ~SBP,140. The patient will be admitted to the ICU with CVA protocol; she is DNR/DNI. Diagnosis: Stroke: Yes Modified [place] Scale: Mod.Sev.Disability ;Unable to Walk/Attend Bodily Needs W/ O Assistance Modified [place] Scale Score: 4 - Discharge Data Discharge Date: 12/04/17 Discharge Disposition: DC/Tfer to SNF 03 Condition: Good - Discharge Diagnosis/Problem(s) (1) Atrial fibrillation SNOMED Code(s): 23119099 ICD Code: I48.91 - UNSPECIFIED ATRIAL FIBRILLATION Status: Chronic Priority: Medium Qualifiers: Atrial fibrillation type: unspecified Qualified Code(s): I48.91 - Unspecified atrial fibrillation (2) Pacemaker ECG pattern SNOMED Code(s): 489317863 ICD Code: Z95.0 - PRESENCE OF CARDIAC PACEMAKER Status: Chronic Priority : Low (3) CAD (coronary artery disease) SNOMED Code(s): 83156285 ICD Code: I25.10 - ATHSCL HEART DISEASE OF [place] CORONARY ARTERY W/O ANG PCTRS Status: Chronic Priority: Medium Qualifiers: Coronary Disease-Associated Artery/Lesion type: unspecified vessel or lesion type [place] vs. transplanted heart: [place] heart Associated angina: angina presence unspecified Qualified Code(s): I25.10 - Atherosclerotic heart disease of [place] coronary artery without angina pectoris (4) Myocardial infarction, old SNOMED Code(s): 2127309 ICD Code: I25.2 - OLD MYOCARDIAL INFARCTION Status: Chronic Priority: Medium (5) Hypertension SNOMED Code(s): 67330554 ICD Code: I10 - ESSENTIAL (PRIMARY) HYPERTENSION Status: Chronic Priority : High Qualifiers: Hypertension type: unspecified Qualified Code(s): I10 - Essential (primary ) hypertension (6) Hypokalemia SNOMED Code(s): 31403742 ICD Code: E87.6 - HYPOKALEMIA Status: Acute Priority: High (7) Hypomagnesemia SNOMED Code(s): 303849297 ICD Code: E83.42 - HYPOMAGNESEMIA Status: Acute Priority: High (8) Intracerebral bleed SNOMED Code(s): 880026348 ICD Code: I61.9 - NONTRAUMATIC INTRACEREBRAL HEMORRHAGE, UNSPECIFIED Status : Acute Priority: High Qualifiers: Intracerebral hemorrhage etiology: nontraumatic Cerebral hemorrhage location: cerebral hemisphere, subcortical portion Laterality: left Qualified Code(s): I61.0 - Nontraumatic intracerebral hemorrhage in hemisphere, subcortical - Patient Summary/Data Consults: Consultations 11/30/17 09:00 Consult to Case Management [CONS] Routine Consult to Speech Language Pathology [INFORMATION SUPPORT PROJECT MANAGER Evaluation and Treatment] [CONS] Routine 11/30/17 10:00 Consult to Physical Therapy [PT Evaluation and Treatment] [CONS] Routine 11/30/17 13:00 Consult to Occupational Therapy [OT Evaluation and Treatment] [CONS] Routine 12/03/17 09:00 INFORMATION SUPPORT PROJECT MANAGER Evaluation and Treatment [CONS] Routine - Patient Instructions Diet: Usual Diet as Tolerated Activity: As Tolerated Driving: Do Not Drive Showering/Bathing: May Shower Notify Provider of: Fever, Increased Pain, Nausea and/or Vomiting - Discharge Plan Home Medications: Home Meds Famotidine [Pepcid] 20 mg PO DAILY 03/27/17 [History] Hydrochlorothiazide 25 mg PO DAILY 03/27/17 [History] Levothyroxine Sodium [Synthroid] 50 mcg PO DAILY 03/27/17 [History] Lisinopril [Zestril] 20 mg PO DAILY 03/27/17 [History] Metoprolol Succinate [Toprol XL] 25 mg PO DAILY 03/27/17 [History] amLODIPine [Norvasc] 10 mg PO DAILY 03/27/17 [History] atorvaSTATin [Lipitor] 20 mg PO BEDTIME 03/27/17 [History] cloNIDine HCl [Catapres] 0.2 mg PO BID 03/27/17 [History] Patient Handouts: Stroke Prevention, [id number], Hemorrhagic Stroke Forms: ED Department Discharge Referrals: Yonatan Pedersen MD [Primary Care Provider] - (Follow-up in 1-2 weeks.) - Discharge Summary/Plan Comment DC Time >30 min.: No Discharge Summary/Plan Comment: I/P: Basal Ganglia hemorrhage * AMS, found lying on the floor at [facility] * Per daughter, does not want surgical intervention or to be transferred; Neurosurgeon in [facility] consulted by ED * Most likely 2/2 HTN * Head CT 11/29/17: * 3.1cm acute parenchymal hemorrhage mostly within the left basal ganglia * This hemorrhage causes mild mass effect upon the lateral left ventricle * Senscent change as noted above * h/o Afib on coumadin * KCentra, FFP, Vit K given in ED * INR before reversal was 1.9--> Daily PT/INR checks * Hold Coumadin and ASA * Repeat Head CT 11/30/17: * Stable hemorrhage within the left basal ganglia * Repeat Head CT 12/01/17: * Stable left-sided basal ganglia hemorrhage with stable mass effect * Repeat Head CT 12/02/17 * Monitor Acute mental status change * Confused, disoriented, difficulty walking, garbled speech * Most likely 2/2 to above * U/A in ED--> negative * Blood glucose in ED--> elevated at 128 * EKG in ED--> V-paced rhythm * Troponin negative in ED; CKMB elevated 3.7 * CXR in ED --> Cardiomegaly with mild upper lobe pulmonary vascular redistribution * Blood Cultures ordered in ED--> no growth x1 day * Ambulation with Assistance * INFORMATION SUPPORT PROJECT MANAGER consult: * No evidence of dysphagia--> regular diet/thin liquids * Wernicke's Aphasia, Word finding deficit, Comprehension difficulty, Able to read and write * Recommend verbal communication, yes/no questions, and use of communication boards * Recommend continued therapy at SNF * Repeat INFORMATION SUPPORT PROJECT MANAGER consult 12/03/17 * PT/OT recommend SNF/continued therapy Electrolyte Abnormalities * Mg 1.6 * K 2.8 * Replenish as needed Resolved: HTN, Improved * Acute on Chronic * 188/66 in ED--> 137/60 * Nicardipine drip started in ED --> D/C * Start Lisinopril 10 BID; hold if SBP <130 * BP Goal 140 systolic per neurosurgeon at [facility] Chronic: H/o NH x3 years ago CAD s/p Triple bypass and 2 stents AFib on Coumadin with PPM CKD III * eGFR 39-->53 * BUN 22, Cr 1.3 * U/A 3+ proteinuria Hypothyroid HLD Adenocarcinoma Plan: [place] with telemetry; stopped telemetry this am. Neurochecks Q6H Daily labs BP Control Home meds as appropriate Stop Coumadin and ASA-->reassessment by PCP/neurologist Regular diet; aspiration precautions d/t AMS DVT/GI prophylaxis--> DALILA and SCD Ambulate with assistance as tolerated INFORMATION SUPPORT PROJECT MANAGER Consult Consult PT/OT--> Recommend SNF placement/continued therapy for walking, strengthening and self care Consult SW/CM--> Most likely will need SNF placement; currently [facility] ([facility])--> Family requests [facility] PCP: Dr. Yonatan Pedersen; Code status DNR/DNI LOS > 96hrs due to slow response to treatment and SNF placement; [facility] today. - General Info Date of Service: 11/29/17 Functional Status: Reports: Pain Controlled, Urinating - Review of Systems General: Reports: No Symptoms HEENT: Reports: No Symptoms Pulmonary: Reports: No Symptoms Cardiovascular: Reports: No Symptoms Gastrointestinal: Reports: No Symptoms Genitourinary: Reports: No Symptoms Musculoskeletal: Reports: No Symptoms Skin: Reports: No Symptoms Neurological: Reports: No Symptoms Psychiatric: Reports: No Symptoms - Patient Data Vitals - Most Recent: Last Vital Signs Temp 36.4 C 12/04/17 07:27 Pulse 73 12/04/17 08:26 Resp 18 12/04/17 07:27 BP 160/80 H 12/04/17 08:26 Pulse Ox 100 12/04/17 07:27 Weight - Most Recent: 56.2 kg I&O - Last 24 hours: Intake & Output 12/03/17 12/04/17 12/04/17 22:59 06:59 14:59 Intake Total 300 50 180 Balance 300 50 180 MICHELLE Results - Last 24 hrs: Microbiology 11/29/17 10:04 Aerobic Blood Culture - Preliminary Blood - Venous NO GROWTH AFTER 5 DAYS Anaerobic Blood Culture - Preliminary NO GROWTH AFTER 5 DAYS 11/29/17 10:15 Aerobic Blood Culture - Preliminary Blood - Venous - Lab Draw NO GROWTH AFTER 5 DAYS Anaerobic Blood Culture - Preliminary NO GROWTH AFTER 5 DAYS Med Orders - Current: Current Medications Acetaminophen (Tylenol) 650 mg PO Q4H PRN PRN Reason: Pain/Fever Last Admin: 12/03/17 17:38 Dose: 650 mg Amlodipine Besylate (Norvasc) 10 mg PO DAILY [facility] Last Admin: 12/04/17 08:26 Dose: 10 mg Clonidine HCl (Catapres) 0.2 mg PO BID [facility] Last Admin: 12/04/17 08:22 Dose: 0.2 mg Famotidine (Pepcid) 20 mg PO DAILY [facility] Last Admin: 12/04/17 08:22 Dose: 20 mg Hydrochlorothiazide (Hydrochlorothiazide) 25 mg PO DAILY [facility] Last Admin: 12/04/17 08:21 Dose: 25 mg Levothyroxine Sodium (Synthroid) 50 mcg PO ACBRK [facility] Last Admin: 12/04/17 06:59 Dose: 50 mcg [facility]) [facility] Last Admin: 12/04/17 08:25 Dose: 10 mg Lorazepam (Ativan) 0.25 mg IVPUSH Q8H PRN PRN Reason: Anxiety Last Admin: 12/04/17 01:23 Dose: 0.25 mg Metoprolol Succinate (Toprol Xl) 25 mg PO DAILY [facility] Last Admin: 12/04/17 08:26 Dose: 25 mg Metoprolol Tartrate (Lopressor) 5 mg IVPUSH Q6H PRN PRN Reason: heart rate >120 Potassium Chloride (Klor-Con M20) 60 meq PO BID [facility] Last Admin: 12/04/17 08:25 Dose: 60 meq Simvastatin (Zocor) 20 mg PO BEDTIME [facility] Last Admin: 12/03/17 20:57 Dose: Not Given Discontinued Medications Factor IX (Pha) (Kcentra) 1,400 unit IVPUSH ONETIME ONE Stop: 11/29/17 12:01 Last Admin: 11/30/17 16:04 Dose: Not Given Dextrose/Sodium Chloride (Dextrose 5%-Normal Saline) 1,000 mls @ 150 mls/hr IV ASDIRECTED [facility] Last Admin: 11/29/17 10:04 Dose: 150 mls/hr Phytonadione 5 mg/ Sodium (Chloride) 50.5 mls @ 100 mls/hr IV NOW ONE Stop: 11/29/17 11:03 Last Admin: 11/29/17 11:36 Dose: 100 mls/hr Nicardipine HCl 25 mg/ Sodium (Chloride) 260 mls @ 52 mls/hr IV ASDIRECTED [facility] Last Admin: 11/29/17 12:15 Dose: 5 mg/hr, 52 mls/hr Potassium Chloride 10 meq/ (Premix) 100 mls @ 100 mls/hr IV ONETIME ONE Stop: 11/29/17 13:05 Last Admin: 11/29/17 12:23 Dose: 100 mls/hr Nicardipine HCl 25 mg/ Sodium (Chloride) 260 mls @ 104 mls/hr IV TITRATE CARON Nicardipine HCl 25 mg/ Sodium (Chloride) 260 mls @ 78 mls/hr IV ASDIRECTED [facility] Nicardipine HCl 25 mg/ Sodium (Chloride) 260 mls @ 52 mls/hr IV ASDIRECTED [facility] Magnesium Sulfate 2 gm/ Premix 50 mls @ 25 mls/hr IV Q1H [facility] Stop: 11/30/17 10:29 Last Admin: 11/30/17 11:48 Dose: 25 mls/hr Potassium Chloride 10 meq/ (Premix) 100 mls @ 100 mls/hr IV Q1H [facility] Stop: 11/30/17 14:29 Last Admin: 11/30/17 19:52 Dose: 50 mls/hr Magnesium Sulfate 4 gm/ Premix 100 mls @ 50 mls/hr IV ONETIME ONE Stop: 11/30/17 16:32 Last Admin: 11/30/17 15:58 Dose: Not Given Magnesium Sulfate 4 gm/ Premix 100 mls @ 300 mls/hr IV ASDIRECTED [facility]ON Stop: 11/30/17 08:19 Last Admin: 11/30/17 16:58 Dose: Not Given Magnesium Sulfate 4 gm/ Premix 100 mls @ 300 mls/hr IV ASDIRECTED [facility] Stop: 12/01/17 08:19 Last Admin: 12/01/17 09:04 Dose: Not Given - Exam Quality Assessment: Reports: DVT Prophylaxis General: Reports: Lethargic HEENT: Reports: Pupils Equal, Pupils Reactive Neck: Reports: Trachea Midline, No JVD Lungs: Reports: Normal Respiratory Effort Cardiovascular: Reports: Regular Rate, Regular Rhythm GI/Abdominal Exam: Normal Bowel Sounds, Soft, Non-Tender, No Organomegaly, No Distention (Female) Exam: Deferred Rectal (Female) Exam: Deferred Back Exam: Reports: Normal Inspection Extremities: Normal Inspection, Normal Capillary Refill Skin: Reports: Warm, Dry Neurological: Reports: No New Focal Deficit Psy/Mental Status: Reports: Other (lethargic)
== END 2017-12-04 13:30 | DRG 66 ==
LOC: JD.ED 09:20 → JD.ICU 16:48 → JD.MS 12-02 16:16
PROVIDERS: ADMIT Internal Medicine Cardiovascular Disease; ATTEND Internal Medicine Cardiovascular Disease
DX: I61.0 Nontraumatic intracerebral hemorrhage in hemisphere, subcortical (principal); E87.6 Hypokalemia; E83.42 Hypomagnesemia; I48.91 Unspecified atrial fibrillation; E78.00 Pure hypercholesterolemia, unspecified; I10 Essential (primary) hypertension; F41.9 Anxiety disorder, unspecified; S50.311A Abrasion of right elbow, initial encounter; S80.212A Abrasion, left knee, initial encounter; S80.211A Abrasion, right knee, initial encounter; X58.XXXA Exposure to other specified factors, initial encounter; I12.9 Hypertensive chronic kidney disease with stage 1 through stage 4 chronic kidney disease, or unspecified chronic kidney disease; L53.8 Other specified erythematous conditions; N18.3 Chronic kidney disease, stage 3 (moderate); E03.9 Hypothyroidism, unspecified; H91.90 Unspecified hearing loss, unspecified ear; H54.7 Unspecified visual loss; M19.90 Unspecified osteoarthritis, unspecified site; R26.2 Difficulty in walking, not elsewhere classified; R47.89 Other speech disturbances; F80.2 Mixed receptive-expressive language disorder; I25.2 Old myocardial infarction; Z09 Encounter for follow-up examination after completed treatment for conditions other than malignant neoplasm; R41.82 Altered mental status, unspecified; M40.204 Unspecified kyphosis, thoracic region; R41.0 Disorientation, unspecified; Z95.0 Presence of cardiac pacemaker; Z95.5 Presence of coronary angioplasty implant and graft; Z85.9 Personal history of malignant neoplasm, unspecified; Z79.01 Long term (current) use of anticoagulants; Z79.82 Long term (current) use of aspirin; Z79.899 Other long term (current) drug therapy; Z66 Do not resuscitate; Z87.891 Personal history of nicotine dependence
CPT/HCPCS: 36415; 70450; 71045; 80053; 81001; 82550; 82553; 82962; 83735; 83880; 84484; 85007; 85027; 85384; 85610; 85652; 86140; 87040 ×2; 93005; 96361; 96365; 96366; 96367; 96368; 96375; 99285; J3430; J3480; J7042; J7050 ×2; P9017; 80048; 80061; 83605; 84443; 85025; 92507-GN; 92523-GN; 92610-GN; 97110-GN; 97110-GO; 97110-GP; 97116-GP; 97162-GP; 97167-GO; 97530-GO; 97530-GP; A9270-GY; C9132; J2060; J3475

== ENCOUNTER 2017-12-07 10:46 | Emergency (ER) | payer MEDICARE, OTHER ==
--- NOTE | 2017-12-07 11:10 | EDM.PDOC ---
ED HPI GENERAL MEDICAL PROBLEM - General Chief Complaint: Cardiovascular Problem Stated Complaint: [facility] Time Seen by Provider: 12/07/17 11:10 Source of Information: Reports: Patient, EMS - History of Present Illness INITIAL COMMENTS - FREE TEXT/NARRATIVE: Makenzie is an 87yo female brought into ED via ambulance from [facility] after a fall this morning, reported landed on her left side. No other reported or associated injuries. She went to breakfast, ate normally and went back to her room for monitoring. Per [facility] protocol VS were monitored, she was found to be 70/40's with decreased mental status and hypoxia with saturation of 78%. [facility] was instructed by PCP to have patient sent to ED for evaluation. Daughter reports mental status has been waxing and waning this morning, "seems to be getting better and better now". She is alert and talkative now but does not know where she is or why she is at the hospital. She had recent hemorrhagic CVA 8 days ago, prior was completely independent. Daughter reports b/p's to be very liable since CVA. She is doing therapy at [facility]. DNR/comfort care code status. Onset: Today Duration: Hour(s): Associated Symptoms: Reports: Confusion (intermittent the past 8 days). 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 (see below) (coumadin DC'd since CVA 8 days ago) - Related Data Allergies Allergy/AdvReac Type Severity Reaction Status Date / Time No Known Allergies Allergy Verified 11/29/17 09:40 Home Meds: Home Meds Famotidine [Pepcid] 20 mg PO DAILY 03/27/17 [History] Hydrochlorothiazide 25 mg PO DAILY 03/27/17 [History] Levothyroxine Sodium [Synthroid] 50 mcg PO DAILY 03/27/17 [History] Lisinopril [Zestril] 20 mg PO DAILY 03/27/17 [History] Metoprolol Succinate [Toprol XL] 25 mg PO DAILY 03/27/17 [History] amLODIPine [Norvasc] 10 mg PO DAILY 03/27/17 [History] atorvaSTATin [Lipitor] 20 mg PO BEDTIME 03/27/17 [History] cloNIDine HCl [Catapres] 0.2 mg PO BID 03/27/17 [History] Past Medical History HEENT History: Reports: Hard of Hearing, Impaired Vision Cardiovascular History: Reports: Afib, High Cholesterol, Hypertension, OR, Pacemaker, Stents Genitourinary History: Reports: Other (See Below) Other Genitourinary History: renal stints 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: 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 TELEPHONE CLERKS History: lymph nodes removed from right breast Musculoskeletal History: Reports: Arthritis Neurological History: Reports: CVA Other Neuro History: bleed Endocrine/Metabolic History: Reports: Hypothyroidism Oncologic (Cancer) History: Reports: Breast, Other (See Below) Other Oncologic History: adenocarcinoma - Infectious Disease History Infectious Disease History: Reports: Chicken Pox, Mumps - Past Surgical History Cardiovascular Surgical History: Reports: Coronary Artery Stent Social & Family History - Family History Cardiac: Reports: Heart Failure - Tobacco Use Smoking Status *Q: Never Smoker - Caffeine Use Caffeine Use: Reports: Coffee - Recreational Drug Use Recreational Drug Use: No - Living Situation & Occupation Living situation: Reports: , Alone (In an assisted living program - [facility] home.) Occupation: Retired (Has been there since her heart attack 2 years ago.) ED ROS GENERAL - Review of Systems Review Of Systems: See Below Constitutional: Reports: Weakness (generalized and baseline since CVA 8 days ago ) HEENT: Reports: No Symptoms Respiratory: Reports: No Symptoms. Denies: Shortness of Breath, Cough Cardiovascular: Denies: Chest Pain, Palpitations GI/Abdominal: Denies: Abdominal Pain Musculoskeletal: Reports: No Symptoms, Other (denies pain to arms/legs- extremities- denies neck or back pain) Neurological: Reports: Confusion. Denies: Headache (denies) Psychiatric: Reports: No Symptoms, Other ED EXAM, GENERAL - Physical Exam Exam: See Below Exam Limited By: Altered Mental Status (waxing and waning) General Appearance: Alert, WD/WN, No Apparent Distress Eye Exam: Bilateral Eye: EOMI, PERRL Ears: Other ([place]) Nose: Normal Inspection Throat/Mouth: Normal Inspection, Normal Lips, Normal Teeth, Other (dry mucous membranes) Head: Atraumatic, Normocephalic. No: Facial Swelling Neck: Normal Inspection. No: Tender Lateral, Tender Midline Respiratory/Chest: No Respiratory Distress, Lungs Clear, Normal Breath Sounds, Decreased Breath Sounds (to bases) Cardiovascular: Normal Peripheral Pulses, Regular Rate, Rhythm, No Edema Peripheral Pulses: 2+: Radial (L), Radial (R), Posterior Tibial (L), Posterior Tibial (R), Dorsalis Pedis (L), Dorsalis Pedis (R) GI/Abdominal: Normal Bowel Sounds, Soft, Non-Tender (Female) Exam: Deferred Rectal (Female) Exam: Deferred Back Exam: Normal Inspection Extremities: Normal Inspection, Normal Range of Motion, Non-Tender, No Pedal Edema Neurological: Alert (orientated x 2), CN II-XII Intact, Normal Reflexes, No Motor/Sensory Deficits, Confused, Memory Loss Recent Events, Other (DTR to patellar 2+ and =) Psychiatric: Normal Affect, Normal Mood, Other (pleasantly confused) Skin Exam: Warm, Dry, Intact EKG INTERPRETATION EKG Date: 12/07/17 Rhythm: A-Fib (with 3 ventricularly paced beats, No LAD, No LVH, No IVCD, QT prolonged- no change from prior EKG on 11/29/17. Reviewed with Dr. Joyner) Course - Vital Signs Last Recorded V/S: Last Vital Signs Temp 97.6 F 12/07/17 10:49 Pulse 68 12/07/17 10:49 Resp 18 12/07/17 10:49 BP 123/61 12/07/17 10:49 Pulse Ox 96 12/07/17 10:49 140/54, HR 68bpm at 1246 - Orders/Labs/Meds Labs: Laboratory Tests 12/07/17 12/07/17 12/07/17 Range/Units 11:58 11:58 12:45 WBC 9.26 (3.98-10.04) K/mm3 RBC 4.80 (3.98-5.22) M/mm3 Hgb 14.4 (11.2-15.7) gm/L Hct 44.1 (34.1-44.9) % MCV 91.9 (79.4-94.8) fl MCH 30.0 (25.6-32.2) pg MCHC 32.7 (32.2-35.5) g/dl RDW Std Deviation 45.8 (36.4-46.3) fL Plt Count 171 L (182-369) K/mm3 MPV 11.6 (9.4-12.3) fl Neut % (Auto) 66.8 (34.0-71.1) % Lymph % (Auto) 20.2 (19.3-51.7) % [place] % (Auto) 11.1 (4.7-12.5) % Eos % (Auto) 1.2 (0.7-5.8) Baso % (Auto) 0.5 (0.1-1.2) % Neut # (Auto) 6.18 H (1.56-6.13) K/mm3 Lymph # (Auto) 1.87 (1.18-3.74) K/mm3 [place] # (Auto) 1.03 H (0.24-0.36) K/mm3 Eos # (Auto) 0.11 (0.04-0.36) K/mm3 Baso # (Auto) 0.05 (0.01-0.08) K/mm3 Sodium 141 (136-145) mEq/L Potassium 3.8 (3.5-5.1) mEq/L Chloride 105 (98-107) mEq/L Carbon Dioxide 27 (21-32) mEq/L Anion Gap 12.8 (5-15) BUN 26 H (7-18) mg/dL Creatinine 1.4 H (0.55-1.02) mg/dL Est Cr Clr Drug Dosing 22.81 mL/min Estimated GFR (MDRD) 36 (>60) mL/min BUN/Creatinine Ratio 18.6 H (14-18) Glucose 90 (83-115) mg/dL Calcium 8.7 (8.5-10.1) mg/dL Magnesium 1.8 (1.8-2.4) mg/dl Total Bilirubin 0.9 (0.2-1.0) mg/dL AST 21 (15-37) U/L ALT 22 (14-59) U/L Alkaline Phosphatase 76 (46-116) U/L Troponin I < 0.017 (0.00-0.056) ng/mL Total Protein 7.1 (6.4-8.2) g/dl Albumin 3.5 (3.4-5.0) g/dl Globulin 3.6 gm/dL Albumin/Globulin Ratio 1.0 (1-2) Urine Color Yellow (Yellow) Urine Appearance Clear (Clear) Urine pH 6.0 (5.0-8.0) Ur Specific [place] 1.015 (1.005-1.030) Urine Protein Negative (Negative) Urine Glucose (UA) Negative (Negative) Urine Ketones Negative (Negative) Urine Occult Blood Negative (Negative) Urine Nitrite Negative (Negative) Urine Bilirubin Negative (Negative) Urine Urobilinogen 0.2 (0.2-1.0) Ur Leukocyte Esterase 1+ H (Negative) Urine RBC 0-5 (0-5) /hpf Urine WBC 5-10 H (0-5) /hpf Ur Epithelial Cells 0-5 (0-5) /hpf Urine Bacteria Few (FEW) /hpf Urine Mucus Not seen (FEW) /hpf Meds: Medications Discontinued Medications Generic Name Dose Route Start Last Admin Trade Name Freq PRN Reason Stop Dose Admin Sodium Chloride 1,000 mls @ 150 mls/hr 12/07/17 11:45 12/07/17 11:58 Normal Saline IV 250 mls/hr ASDIRECTED CARON Administration - Radiology Interpretation Free Text/Narrative:: Head CT with no new changes, decreasing in density of previous left basal ganglion hemorrhagic area. - Re-Assessments/Exams Free Text/Narrative Re-Assessment/Exam: 12/07/17 13:34 Patient doing better, more talkative and pleasant. Labs returned essentially WNL. Creatinine slightly elevated at 1.4. K+ WNL. CBC WNL. UA with trace to 1+ leuks, 5-10 WBC's UC ordered- doubtful of UTI. Reassurance provided to patient and daughter, evaluation is unremarkable today. Recommend PCP readdress antihypertensive medications as she has been low here. Departure - Departure Time of Disposition: 13:36 Disposition: DC/Tfer to [facility] Condition: Good Clinical Impression: Fall Qualifiers: Encounter type: initial encounter Qualified Code(s): W19.XXXA - Unspecified fall, initial encounter Hypotension Qualifiers: Hypotension type: unspecified hypotension type Qualified Code(s): I95.9 - Hypotension, unspecified Altered mental status, unspecified Qualifiers: Altered mental status type: unspecified Qualified Code(s): R41.82 - Altered mental status, unspecified Instructions: Hypotension, [id number] Referrals: Yonatan Pedersen MD [Primary Care Provider] - Forms: ED Department Discharge Additional Instructions: Hold b/p medications until this evening unless >150/90 Push fluids Ambulate with assist at all times Follow up with PCP, Dr. Pedersen as scheduled of this week.
[2017-12-07] MEDS ORDERED: Sodium Chloride 0.9% 1,000 ML IV SCH (11:45)
--- NOTE | 2017-12-07 12:20 | CT ---
Head CT Technique: Multiple axial sections through the brain were obtained. Intravenous contrast was not utilized. Comparison: Prior head CT exam of 12/03/17. Findings: Previous hemorrhage is becoming less dense compatible with mild evolution of this hemorrhage. Stable surrounding edema is noted. No acute intracranial hemorrhage is seen from prior study. Stable senescent change is noted. Impression: 1. Decreasing density of previous hemorrhage within the left basal ganglia compatible with normal evolution of this hemorrhage. No new abnormality is seen. Diagnostic code #3
--- NOTE | 2017-12-07 15:28 | CR ---
Chest: Portable view of the chest was obtained. Comparison: Prior chest x-ray of 11/29/17. Heart is slightly enlarged. Tortuous thoracic aorta is seen. Pacemaker is noted. Lungs are clear without acute parenchymal change. Minimal scoliosis is noted within the spine. Surgical clips are seen within the axillary region. Impression: 1. Findings as noted above. Nothing acute is seen on portable chest x-ray. Diagnostic code #2
== END 2017-12-07 14:50 ==
LOC: JD.ED 10:46
DX: I95.9 Hypotension, unspecified (principal); R41.82 Altered mental status, unspecified; I10 Essential (primary) hypertension; E78.00 Pure hypercholesterolemia, unspecified; I48.91 Unspecified atrial fibrillation; Z79.899 Other long term (current) drug therapy; W19.XXXA Unspecified fall, initial encounter
CPT/HCPCS: 36415; 70450; 71045; 80053; 81001; 83735; 84484; 85025; 87086; 93005; 96360; 96361; 99285; J7040

== ENCOUNTER 2018-02-17 02:25 | Emergency (ER) | payer MEDICARE, OTHER ==
--- NOTE | 2018-02-17 02:52 | EDM.PDOC ---
ED HPI GENERAL MEDICAL PROBLEM - General Chief Complaint: Laceration Stated Complaint: FELL AND LACERATED HEAD Time Seen by Provider: 02/17/18 02:33 Source of Information: Reports: Patient History Limitations: Reports: No Limitations - History of Present Illness INITIAL COMMENTS - FREE TEXT/NARRATIVE: The patient presents from [facility] with her daughter for a fall and head injury. She got up to use the restroom and she must of fallen. She is not sure what happened. She has a cut to the back of her head. She has no headache, neck pain, chest pain, abdominal pain, hip pain, arm or leg pain. She has no headache right now. Onset: Sudden Duration: Minutes: Location: Reports: Head Severity: Mild Improves with: Reports: None Worsens with: Reports: None Associated Symptoms: Reports: No Other Symptoms - Related Data Allergies Allergy/AdvReac Type Severity Reaction Status Date / Time No Known Allergies Allergy Verified 02/17/18 02:45 Home Meds: Home Meds Famotidine [Pepcid] 20 mg PO DAILY 03/27/17 [History] Hydrochlorothiazide 25 mg PO DAILY 03/27/17 [History] Levothyroxine Sodium [Synthroid] 50 mcg PO DAILY 03/27/17 [History] Lisinopril [Zestril] 20 mg PO DAILY 03/27/17 [History] Metoprolol Succinate [Toprol XL] 25 mg PO DAILY 03/27/17 [History] amLODIPine [Norvasc] 10 mg PO DAILY 03/27/17 [History] atorvaSTATin [Lipitor] 20 mg PO BEDTIME 03/27/17 [History] cloNIDine HCl [Catapres] 0.2 mg PO BID 03/27/17 [History] Past Medical History HEENT History: Reports: Hard of Hearing, Impaired Vision Cardiovascular History: Reports: Afib, High Cholesterol, Hypertension, [place], Pacemaker, Stents Genitourinary History: Reports: Other (See Below) Other Genitourinary History: renal stints [employer] History: Reports: Other [employer] History: lymph nodes removed from right breast Musculoskeletal History: Reports: Arthritis Neurological History: Reports: CVA Other Neuro History: bleed Endocrine/Metabolic History: Reports: Hypothyroidism Oncologic (Cancer) History: Reports: Breast, Other (See Below) Other Oncologic History: adenocarcinoma - Infectious Disease History Infectious Disease History: Reports: Chicken Pox, Mumps - Past Surgical History Cardiovascular Surgical History: Reports: Coronary Artery Stent Social & Family History - Family History Cardiac: Reports: Heart Failure - Caffeine Use Caffeine Use: Reports: Coffee - Living Situation & Occupation Living situation: Reports: , Alone (In an assisted living program - [facility] Occupation: Retired (Has been there since her heart attack 2 years ago.) ED ROS GENERAL - Review of Systems Review Of Systems: See Below Constitutional: Reports: No Symptoms HEENT: Reports: Other (Laceration to the back of her head) Respiratory: Reports: No Symptoms Cardiovascular: Reports: No Symptoms Endocrine: Reports: No Symptoms GI/Abdominal: Reports: No Symptoms : Reports: No Symptoms Musculoskeletal: Reports: No Symptoms ED EXAM, SKIN/RASH Exam: See Below Exam Limited By: No Limitations General Appearance: Alert, No Apparent Distress Ears: Normal External Exam Nose: Normal Inspection Head: Other (1cm curved laceration to the back of the head on the right side. There is a 1.5cm laceration also seen.) Neck: Normal Inspection, Supple, Non-Tender Respiratory/Chest: No Respiratory Distress, Lungs Clear, Normal Breath Sounds Cardiovascular: Regular Rate, Rhythm, No Edema, No Murmur GI/Abdominal: Soft, Non-Tender, No Organomegaly, No Mass Back Exam: Normal Inspection Extremities: Normal Inspection Neurological: Alert, No Motor/Sensory Deficits ED SKIN PROCEDURES - Laceration/Wound Repair Head Lac/Wound length In cm: 2.5 Appearance: Subcutaneous, Irregular (curved) Anesthetic Type: Topical (LET) Skin Prep: Saline Exploration/Debridement/Repair: Wound Explored, In a Bloodless Field, Explored to Base Closed with: Violeta # of Sutures: 6 Tetanus Status Addressed: Yes Complications: No Course - Vital Signs Last Recorded V/S: Last Vital Signs Temp 98.5 F 02/17/18 02:34 Pulse 75 02/17/18 02:34 Resp 22 H 02/17/18 02:34 BP 170/78 H 02/17/18 02:34 Pulse Ox 95 02/17/18 02:34 - Orders/Labs/Meds Orders: Active Orders 24 hr Category Date Time Status Head wo Cont [CT] Stat Exams 02/17/18 02:43 Taken Meds: Medications Discontinued Medications Generic Name Dose Route Start Last Admin Trade Name Freq PRN Reason Stop Dose Admin Lidocaine/Tetracaine 2 ml 02/17/18 03:18 02/17/18 03:40 Let Corinne TOP 02/17/18 03:19 2 ml ONETIME ONE Administration - Re-Assessments/Exams Free Text/Narrative Re-Assessment/Exam: 02/17/18 03:01 I have ordered a CT of her head and I will look to see what I need to fix on her head. 02/17/18 03:[address] of her head looks good. I put some violeta in the 2 lacerations in the back of her head. I will discharge her home. Departure - Departure Time of Disposition: 03:50 Disposition: Home, Self-Care 01 Condition: Good Clinical Impression: Fall Qualifiers: Encounter type: initial encounter Qualified Code(s): W19.XXXA - Unspecified fall, initial encounter Laceration of scalp Qualifiers: Encounter type: initial encounter Qualified Code(s): S01.01XA - Laceration without foreign body of scalp, initial encounter - Discharge Information *PRESCRIPTION DRUG MONITORING PROGRAM REVIEWED*: No *COPY OF PRESCRIPTION DRUG MONITORING REPORT IN PATIENT VON: No Referrals: Yonatan Pedersen MD [Primary Care Provider] - 1 Week Forms: ED Department Discharge Additional Instructions: Clean the wound with warm soapy water 2 times per day and apply antibiotics after. Please return if you notice any signs of infection such as redness, swelling, drainage or pain. You may need an oral antibiotic. Please return if you have more pain. - My Orders Last 24 Hours: My Active Orders 02/17/18 02:43 Head wo Cont [CT] Stat - Assessment/Plan Last 24 Hours: My Active Orders 02/17/18 02:43 Head wo Cont [CT] Stat
[2018-02-17] MEDS ORDERED: Lidocaine/EPINEPHrine/Tetracaine Soln 1 ML TOP ONE (03:18)
--- NOTE | 2018-02-17 12:56 | CT ---
Head CT Technique: Multiple axial sections through the brain were obtained. Intravenous contrast was not utilized. Comparison: Prior head CT study of 12/07/17. Findings: Previously noted intracranial hemorrhage has resolved. Ventricles along with basal cisterns and sulci over the convexities are moderately prominent. Diminished density is noted within the periventricular and subcortical white matter compatible with small vessel ischemic demyelination change. No acute intracranial hemorrhage is seen. No midline shift or mass effect is seen. Bone window settings were reviewed which show no acute calvarial abnormality. Visualized sinuses are clear. Impression: 1. Nothing acute is seen on noncontrast head CT study. Other incidental findings as noted above. Diagnostic code #2 I agree with preliminary report from [facility], finalized on 02/17/18, 4:19 AM Central Time
== END 2018-02-17 04:00 | disposition home or self-care (01) ==
LOC: JD.ED 02:25
DX: S01.01XA Laceration without foreign body of scalp, initial encounter (principal); I10 Essential (primary) hypertension; W19.XXXA Unspecified fall, initial encounter; Z79.899 Other long term (current) drug therapy
CPT/HCPCS: 12001; 70450; 99284; A9270; 99283-25

== ENCOUNTER 2018-08-10 19:38 | Observation (INO) | payer MEDICARE, OTHER ==
[2018-08-10] MEDS ORDERED: Potassium Chloride 20 MEQ Tab.ER PO ONE (21:39)
--- NOTE | 2018-08-10 21:39 | EDM.PDOC ---
ED HPI GENERAL MEDICAL PROBLEM - General Chief Complaint: Fever Stated Complaint: FEVER COUGH CONGESTION Time Seen by Provider: 08/10/18 20:41 Source of Information: Reports: Patient, Family (Daughter), RN Notes Reviewed History Limitations: Reports: Physical Impairment (Patient hard of hearing) - History of Present Illness INITIAL COMMENTS - FREE TEXT/NARRATIVE: According to the patient's daughter, the patient has had a cough productive of clear sputum for the past 10 days, along with dyspnea for the past 4-5 days. She has had a decreased oral intake for the past 2 days, and was found to have it temperature of 101.7 around 19:00 tonight. She has been given over-the- counter cough syrup, but no Tylenol or ibuprofen. The patient denies recent history of vomiting, diarrhea, or urinary symptoms. The patient's daughter states that the patient had similar symptoms, although not as severe, about 3 weeks ago. Her symptoms only lasted for a few days. She was not medically evaluated, and no treatment was given. The patient's PCP is Dr. Pedersen. - Related Data Allergies Allergy/AdvReac Type Severity Reaction Status Date / Time No Known Allergies Allergy Verified 02/17/18 02:45 Home Meds: Home Meds Levothyroxine Sodium [Synthroid] 50 mcg PO DAILY 03/27/17 [History] Lisinopril [Zestril] 20 mg PO DAILY 03/27/17 [History] Metoprolol Succinate [Toprol XL] 12.5 mg PO DAILY 03/27/17 [History] amLODIPine [Norvasc] 10 mg PO DAILY 03/27/17 [History] atorvaSTATin [Lipitor] 20 mg PO BEDTIME 03/27/17 [History] Mirtazapine 7.5 mg PO BEDTIME 02/17/18 [History] Acetaminophen [Tylenol] 650 mg PO Q4HR PRN 08/10/18 [History] Apixaban [Eliquis] 2.5 mg PO BID 08/10/18 [History] Aspirin 81 mg PO DAILY 08/10/18 [History] Bisacodyl 10 mg PO DAILY PRN 08/10/18 [History] Famotidine 20 mg PO DAILY 08/10/18 [History] Oxymetazoline [Afrin Original 0.05% Nasal [place]] 1 spray GURU DAILY PRN 08/10/18 [History] Sertraline [Zoloft] 25 mg PO BEDTIME 08/10/18 [History] hydroCHLOROthiazide [Hydrochlorothiazide] 12.5 mg PO DAILY 08/10/18 [History] Past Medical History HEENT History: Reports: Hard of Hearing, Impaired Vision Cardiovascular History: Reports: Afib (chronic), High Cholesterol, Hypertension , [place] (Mar 2016) [employer] History: Reports: Musculoskeletal History: Reports: Arthritis Neurological History: Reports: 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) Endocrine/Metabolic History: Reports: Hypothyroidism Oncologic (Cancer) History: Reports: Breast (right, adenocarcinoma, s/p RTx) - Infectious Disease History Infectious Disease History: Reports: Chicken Pox, Mumps - Past Surgical History Cardiovascular Surgical History: Reports: Coronary Artery Stent (x 2), Pacer, Other (See Below) (Left renal artery stent) Female Surgical History: Reports: Hysterectomy, Salpingo-Oophorectomy ( bilateral) Oncologic Surgical History: Reports: Other (See Below) (right axillary LN bx x 2 ) Social & Family History - Family History Cardiac: Reports: Heart Failure - Tobacco Use Smoking Status *Q: Former Smoker Years of Tobacco use: 40 Packs/Tins Daily: 1 Month/Year Tobacco Last Used: Quit around 1989 - Caffeine Use Caffeine Use: Reports: Coffee - Alcohol Use Alcohol Use History: Yes Alcohol Use Frequency: Socially - Recreational Drug Use Recreational Drug Use: No - Living Situation & Occupation Living situation: Reports: , Assisted Living ([place]) Occupation: Retired (Has been there since her heart attack 2 years ago.) ED ROS GENERAL - Review of Systems Review Of Systems: ROS reveals no pertinent complaints other than HPI. ED EXAM, GENERAL - Physical Exam Exam: See Below Exam Limited By: No Limitations General Appearance: Alert, No Apparent Distress, Thin Eye Exam: Bilateral Eye: EOMI, Normal Inspection Ears: Normal External Exam, Hearing Loss Nose: Normal Inspection Throat/Mouth: Normal Inspection, Normal Lips, Normal Voice, No Airway Compromise Head: Atraumatic, Normocephalic Neck: Normal Inspection Respiratory/Chest: No Respiratory Distress, Lungs Clear, Normal Breath Sounds, No Accessory Muscle Use. No: Decreased Breath Sounds, Crackles, Rhonchi, Wheezing, Prolonged Expiration Cardiovascular: Normal Peripheral Pulses, No Edema, No Gallop, No JVD, No Murmur , No Rub, Irregularly Irregular (regular rate) Peripheral Pulses: 4+: Radial (L), Radial (R) GI/Abdominal: Normal Bowel Sounds, Soft, Non-Tender, No Organomegaly, No Distention, No Abnormal Bruit, No Mass (Female) Exam: Deferred Rectal (Female) Exam: Deferred Back Exam: Normal Inspection, Full Range of Motion. No: CVA Tenderness (L), CVA Tenderness (R) Extremities: Normal Inspection, Normal Range of Motion, No Pedal Edema, Normal Capillary Refill Neurological: Alert, Oriented, Normal Cognition, No Motor/Sensory Deficits Psychiatric: Normal Affect Skin Exam: Warm, Dry, Intact, Normal Color, No Rash EKG INTERPRETATION EKG Date: 08/10/18 Time: 21:19 Rhythm: A-Fib (with 2 v-paced beats) Rate (Beats/Min): 77 [place]: Normal P-Wave: Absent QRS: Normal ST-T: Depressed (lateral leads) QT: Prolonged (QTc 579 ms) Comparison: No Change (12/07/2017) Course - Vital Signs Last Recorded V/S: Last Vital Signs Temp 37.3 C 08/10/18 23:44 Pulse 64 08/10/18 23:44 Resp 22 H 08/10/18 23:44 BP 104/77 08/10/18 23:44 Pulse Ox 91 L 08/10/18 23:44 - Orders/Labs/Meds Orders: Active Orders 24 hr Category Date Time Status Patient Status [ADT] Routine ADT 08/10/18 22:46 Active CXR [Chest 2V] [CR] Stat Exams 08/10/18 20:35 Taken CULTURE BLOOD [BC] Stat Lab 08/10/18 21:40 Received CULTURE BLOOD [BC] Stat Lab 08/10/18 21:45 Received Blood Culture x2 Reflex Set [OM.PC] Stat Oth 08/10/18 20:56 Ordered Medication Orders Acetaminophen (Tylenol) 650 mg PO Q4HR PRN PRN Reason: Fever Amlodipine Besylate (Norvasc) 10 mg PO DAILY CARON Apixaban (Eliquis) 2.5 mg PO BID CARON Last Admin: 08/11/18 01:32 Dose: 2.5 mg Aspirin (Aspirin) 81 mg PO DAILY CARON Bisacodyl (Dulcolax) 10 mg PO DAILY PRN PRN Reason: Constipation Famotidine (Pepcid) 20 mg PO DAILY [facility] Hydrochlorothiazide (Hydrochlorothiazide) 12.5 mg PO DAILY [facility] Levothyroxine Sodium (Levothyroxine) 50 mcg PO DAILY CARON Metoprolol Succinate (Toprol Xl) 12.5 mg PO DAILY CARON Mirtazapine (Remeron) 7.5 mg PO BEDTIME CARON Last Admin: 08/11/18 01:33 Dose: 7.5 mg Non-Formulary Medication (Atorvastatin) 20 mg PO BEDTIME CARON Non-Formulary Medication (Lisinopril [Zestril]) 20 mg PO DAILY CARON Sertraline HCl (Zoloft) 25 mg PO BEDTIME CARON Labs: Laboratory Tests 08/10/18 08/10/18 08/10/18 Range/Units 21:00 21:00 21:00 WBC 10.67 H (3.98-10.04) K/mm3 RBC 4.82 (3.98-5.22) M/mm3 Hgb 14.0 (11.2-15.7) gm/L Hct 43.2 (34.1-44.9) % MCV 89.6 (79.4-94.8) fl MCH 29.0 (25.6-32.2) pg MCHC 32.4 (32.2-35.5) g/dl RDW Std Deviation 45.2 (36.4-46.3) fL Plt Count 117 L (182-369) K/mm3 MPV 12.3 (9.4-12.3) fl Neutrophils % (Manual) 69 H (40-60) % Band Neutrophils % 0 (0-10) % Lymphocytes % (Manual) 21 (20-40) % Atypical Lymphs % 0 % Monocytes % (Manual) 9 (2-10) % Eosinophils % (Manual) 1 (0.7-5.8) % Basophils % (Manual) 0 L (0.1-1.2) Platelet Estimate Decreased Plt Morphology Comment See note RBC Morph Comment Normal Puncture Site ABG pH (7.35-7.45) ABG pCO2 (35.0-45.0) mmHg ABG pO2 (80.0-100.0) mmHg ABG HCO3 (22.0-26.0) meq/L ABG O2 Saturation (96.0-97.0) % ABG Base Excess (-2-2.0) A-a Gradient mmHg O2 Delivery Device FiO2 (21.00-100.00) % Sodium 141 (136-145) mEq/L Potassium 2.9 L (3.5-5.1) mEq/L Chloride 101 (98-107) mEq/L Carbon Dioxide 27 (21-32) mEq/L Anion Gap 15.9 H (5-15) BUN 15 (7-18) mg/dL Creatinine 1.0 (0.55-1.02) mg/dL Est Cr Clr Drug Dosing 28.47 mL/min Estimated GFR (MDRD) 52 (>60) mL/min BUN/Creatinine Ratio 15.0 (14-18) Glucose 110 (83-115) mg/dL Calcium 9.3 (8.5-10.1) mg/dL Magnesium 1.7 L (1.8-2.4) mg/dl Total Bilirubin 1.1 H (0.2-1.0) mg/dL AST 22 (15-37) U/L ALT 20 (14-59) U/L Alkaline Phosphatase 81 (46-116) U/L Total Protein 7.8 (6.4-8.2) g/dl Albumin 3.6 (3.4-5.0) g/dl Globulin 4.2 gm/dL Albumin/Globulin Ratio 0.9 L (1-2) 08/10/18 Range/Units 21:30 WBC (3.98-10.04) K/mm3 RBC (3.98-5.22) M/mm3 Hgb (11.2-15.7) gm/L Hct (34.1-44.9) % MCV (79.4-94.8) fl MCH (25.6-32.2) pg MCHC (32.2-35.5) g/dl RDW Std Deviation (36.4-46.3) fL Plt Count (182-369) K/mm3 MPV (9.4-12.3) fl Neutrophils % (Manual) (40-60) % Band Neutrophils % (0-10) % Lymphocytes % (Manual) (20-40) % Atypical Lymphs % % Monocytes % (Manual) (2-10) % Eosinophils % (Manual) (0.7-5.8) % Basophils % (Manual) (0.1-1.2) Platelet Estimate Plt Morphology Comment RBC Morph Comment Puncture Site Lt radial ABG pH 7.50 H (7.35-7.45) ABG pCO2 32.6 L (35.0-45.0) mmHg ABG pO2 55.0 L (80.0-100.0) mmHg ABG HCO3 25.4 (22.0-26.0) meq/L ABG O2 Saturation 89.5 L (96.0-97.0) % ABG Base Excess 3.1 H (-2-2.0) A-a Gradient 38 mmHg O2 Delivery Device Room air FiO2 21.00 (21.00-100.00) % Sodium (136-145) mEq/L Potassium (3.5-5.1) mEq/L Chloride (98-107) mEq/L Carbon Dioxide (21-32) mEq/L Anion Gap (5-15) BUN (7-18) mg/dL Creatinine (0.55-1.02) mg/dL Est Cr Clr Drug Dosing mL/min Estimated GFR (MDRD) (>60) mL/min BUN/Creatinine Ratio (14-18) Glucose (83-115) mg/dL Calcium (8.5-10.1) mg/dL Magnesium (1.8-2.4) mg/dl Total Bilirubin (0.2-1.0) mg/dL AST (15-37) U/L ALT (14-59) U/L Alkaline Phosphatase (46-116) U/L Total Protein (6.4-8.2) g/dl Albumin (3.4-5.0) g/dl Globulin gm/dL Albumin/Globulin Ratio (1-2) Meds: Medications Generic Name Dose Route Start Last Admin Trade Name Freq PRN Reason Stop Dose Admin Acetaminophen 650 mg 08/11/18 00:19 Tylenol PO Q4HR PRN Fever Amlodipine Besylate 10 mg 08/11/18 09:00 Norvasc PO DAILY CARON Apixaban 2.5 mg 08/11/18 01:00 08/11/18 01:32 Eliquis PO 2.5 mg BID CARON Administration Aspirin 81 mg 08/11/18 09:00 Aspirin PO DAILY CARON Bisacodyl 10 mg 08/11/18 00:19 Dulcolax PO DAILY PRN Constipation Famotidine 20 mg 08/11/18 09:00 Pepcid PO DAILY [facility]ON Hydrochlorothiazide 12.5 mg 08/11/18 09:00 Hydrochlorothiazide PO DAILY CARON Levothyroxine Sodium 50 mcg 08/11/18 09:00 Levothyroxine PO DAILY CARON Metoprolol Succinate 12.5 mg 08/11/18 09:00 Toprol Xl PO DAILY CARON Mirtazapine 7.5 mg 08/11/18 01:00 08/11/18 01:33 Remeron PO 7.5 mg BEDTIME CARON Administration Non-Formulary Medication 20 mg 08/11/18 21:00 Atorvastatin PO BEDTIME CARON Non-Formulary Medication 20 mg 08/11/18 09:00 Lisinopril [Zestril] PO DAILY CARON Sertraline HCl 25 mg 08/11/18 21:00 Zoloft PO BEDTIME CARON Discontinued Medications Generic Name Dose Route Start Last Admin Trade Name Freq PRN Reason Stop Dose Admin Potassium Chloride 40 meq 08/10/18 21:39 08/10/18 22:00 Klor-Con M20 PO 08/10/18 21:40 Not Given ONETIME ONE Potassium Chloride 40 meq 08/10/18 21:58 08/10/18 22:22 Potassium Chloride Solution PO 08/10/18 21:59 40 meq ONETIME ONE Administration Potassium Chloride 40 meq 08/10/18 22:07 08/10/18 22:08 Potassium Chloride Solution PO 08/10/18 22:08 Not Given ONETIME ONE - Re-Assessments/Exams Free Text/Narrative Re-Assessment/Exam: 08/10/18 21:40 2-view chest radiograph reviewed. The cardiac silhouette is within normal limits. No pulmonary vascular congestion. No pleural effusions. No focal infiltrate. No pneumothorax. 2 chamber left-sided pacer incidentally noted. Formal read per the Radiologist pending. The patient's CMP reveals a potassium depressed at 2.9. The remainder of her CMP is unremarkable. I have ordered 40 mEq of oral potassium chloride. 08/10/18 21:53 The patient's CBC reveals a WBC count mildly elevated at 10.67, but with 0% bandemia. The remainder of her CBC is normal. The patient's ABG reveals an acute respiratory alkalosis and hypoxemia. 08/10/18 22:33 Test results discussed with the patient and her daughter. The patient ordinarily does not like to take potassium, but did here in the ED tonight. The patient appears to have a viral illness causing her cough. I do not see evidence for a bacterial infection requiring antibiotics, however, the patient' s daughter would like the patient to be placed into observation overnight, given the patient's age and frailty. Case discussed with Dr. Hall at 22:32. He agreed to place the patient into observation overnight, and asked that I write bridge orders. Departure - Departure Time of Disposition: 22:35 Disposition: Refer to Observation Condition: Good Clinical Impression: Hypokalemia, Viral URI with cough - Discharge Information *PRESCRIPTION DRUG MONITORING PROGRAM REVIEWED*: Not Applicable *COPY OF PRESCRIPTION DRUG MONITORING REPORT IN PATIENT VON: Not Applicable - My Orders Last 24 Hours: My Active Orders 08/10/18 20:35 CXR [Chest 2V] [CR] Stat 08/10/18 20:56 Blood Culture x2 Reflex Set [OM.PC] Stat 08/10/18 21:40 CULTURE BLOOD [BC] Stat 08/10/18 21:45 CULTURE BLOOD [BC] Stat 08/10/18 22:46 Patient Status [ADT] Routine - Assessment/Plan Last 24 Hours: My Active Orders 08/10/18 20:35 CXR [Chest 2V] [CR] Stat 08/10/18 20:56 Blood Culture x2 Reflex Set [OM.PC] Stat 08/10/18 21:40 CULTURE BLOOD [BC] Stat 08/10/18 21:45 CULTURE BLOOD [BC] Stat 08/10/18 22:46 Patient Status [ADT] Routine
[2018-08-10] MEDS ORDERED: Potassium Chloride 10% 20 MEQ/15 ML Soln 15 ML UD Cup PO ONE ×2 (21:58→22:07)
[2018-08-11] MEDS ORDERED: Bisacodyl 5 MG Tab PO PRN (00:19)
[2018-08-11] MEDS ORDERED: Acetaminophen 325 MG Tab PO PRN (00:19)
[2018-08-11] MEDS ORDERED: Mirtazapine 15 MG Tab PO SCH (01:00)
[2018-08-11] MEDS: APIXABAN 5 MG PO SCH ×3 (01:32→20:56)
--- NOTE | 2018-08-11 07:19 | PCM.HP ---
H&P History of Present Illness - General Date of Service: 08/11/18 Admit Problem/Dx: Admission Diagnosis/Problem Admission Diagnosis/Problem Hypokalemia Source of Information: Patient, Old Records, Provider, RN, RN Notes Reviewed History Limitations: Reports: No Limitations - History of Present Illness Initial Comments - Free Text/Narative: Makenzie Talbert is an 88 yo female who presented to ED the evening of accompanied by her daughter with fever, cough, and congestion. She is reportedly had a cough with clear sputum for the past 10 days and worsening dyspnea for the past 4-5 days. She's had decreased oral intake and a fever up to 101.7. She was taking [id number] cough syrup and no other home meds for this. No recent history of vomiting, diarrhea, or urinary symptoms. Daughter reports patient had similar symptoms about 3 weeks ago which lasted for a few days but she was never evaluated or given treatment. In the ED a 12-lead EKG was obtained showing A. fib with to ventricular paced beats at [address] segment is decreased in the lateral leads. QT is prolonged at 579. There is no change from prior twelve-lead EKG. Temp is 37.3 Celsius. Pulse 64. Respirations 22. Blood pressure 104/77. Pulse ox 91%. Labs are obtained: WBC is very slightly elevated at 10.67. Hemoglobin 14.0. Hematocrit 43.2. She is normocytic. Platelets are low at 117,000. Neutrophils are elevated at 69%. There is no bandemia. Sodium is 141. Potassium low at 2.9. Chloride 101. Carbon oxide 27. Anion gap is slightly elevated at 15.9. BUN is 15. Creatinine 1.0. EGFR is 52. Gross is 110. Calcium 9.3. Magnesium low at 1.7. Bilirubin slightly high at 1.1. AST 22, ALT 20, alkaline phosphatase 81. Protein is 7.8. EGDs obtained of the left radial showing a pH of 7.50, PCO2 of 32.6, PO2 of 55.0, HCO3 of 25.4, O2 saturation of 89.5, base excess of 3.1 this is obtainable on room air. She is given 40 mEq of oral potassium solution. Chest x-ray is obtained and interpreted by Dr. Alex as "1. Mild cardiomegaly. 2. Slight increased lung markings and prior study either due to bronchitis or pulmonary congestion. 3. Emphysematous changes. 4. Other incidental findings." ED provider to discuss findings with patient's daughter who would like the patient placed in observation overnight. She carries a history of: Hard of hearing, impaired vision, chronic A. 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 She is a former smoker. She subsequently admitted to the medical floor observation status on telemetry. She is a DNR/DNI. Her PCP is Dr. Pedersen. - Related Data Allergies/Adverse Reactions: Allergies Allergy/AdvReac Type Severity Reaction Status Date / Time No Known Allergies Allergy Verified 02/17/18 02:45 Home Medications: Home Meds Levothyroxine Sodium [Synthroid] 50 mcg PO DAILY 03/27/17 [History] Lisinopril [Zestril] 20 mg PO DAILY 03/27/17 [History] Metoprolol Succinate [Toprol XL] 12.5 mg PO DAILY 03/27/17 [History] amLODIPine [Norvasc] 10 mg PO DAILY 03/27/17 [History] atorvaSTATin [Lipitor] 20 mg PO BEDTIME 03/27/17 [History] Mirtazapine 7.5 mg PO BEDTIME 02/17/18 [History] Acetaminophen [Tylenol] 650 mg PO Q4HR PRN 08/10/18 [History] Apixaban [Eliquis] 2.5 mg PO BID 08/10/18 [History] Aspirin 81 mg PO DAILY 08/10/18 [History] Bisacodyl 10 mg PO DAILY PRN 08/10/18 [History] Famotidine 20 mg PO DAILY 08/10/18 [History] Oxymetazoline [Afrin Original 0.05% Nasal [place]] 1 spray GURU DAILY PRN 08/10/18 [History] Sertraline [Zoloft] 25 mg PO BEDTIME 08/10/18 [History] hydroCHLOROthiazide [Hydrochlorothiazide] 12.5 mg PO DAILY 08/10/18 [History] Past Medical History HEENT History: Reports: Hard of Hearing, Impaired Vision Cardiovascular History: Reports: Afib (chronic), High Cholesterol, Hypertension , SD (Mar 2016) Gastrointestinal History: Reports: GERD Genitourinary History: Reports: Other (See Below) Other Genitourinary History: renal stents 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: Other OB/BYN History: lymph nodes removed from right breast Musculoskeletal History: Reports: Arthritis Neurological History: Reports: 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) Other Neuro History: bleed, organic brain syndrome, vascular dimentia with behavioral distrubance Psychiatric History: Reports: Dementia, Depression Endocrine/Metabolic History: Reports: Hypothyroidism Oncologic (Cancer) History: Reports: Breast (right, adenocarcinoma, s/p RTx) Other Oncologic History: adenocarcinoma - Infectious Disease History Infectious Disease History: Reports: Chicken Pox, Mumps - Past Surgical History Cardiovascular Surgical History: Reports: Coronary Artery Stent (x 2), Pacer, Other (See Below) (Left renal artery stent) Female Surgical History: Reports: Hysterectomy, Salpingo-Oophorectomy ( bilateral) Oncologic Surgical History: Reports: Other (See Below) (right axillary LN bx x 2 ) Social & Family History - Family History Family Medical History: Noncontributory Cardiac: Reports: Heart Failure - Tobacco Use Smoking Status *Q: Former Smoker Years of Tobacco use: 40 Packs/Tins Daily: 1 Month/Year Tobacco Last Used: Quit around 1989 Second Hand Smoke Exposure: No - Caffeine Use Caffeine Use: Reports: Coffee - Recreational Drug Use Recreational Drug Use: No - Living Situation & Occupation Living situation: Reports: , Assisted Living ([place]) Occupation: Retired (Has been there since her heart attack 2 years ago.) H&P Review of Systems - Review of Systems: Review Of Systems: See Below General: Reports: Fever, Malaise, Weakness, Fatigue, Decreased Appetite. Denies : Chills HEENT: Denies: Headaches, Sore Throat Pulmonary: Reports: Shortness of Breath, Cough, Sputum. Denies: Wheezing, Pleuritic Chest Pain Cardiovascular: Reports: Dyspnea on Exertion. Denies: Chest Pain, Palpitations , Edema Gastrointestinal: Denies: Abdominal Pain, Constipation, Distension, Nausea, Vomiting Genitourinary: Reports: No Symptoms. Denies: Pain Musculoskeletal: Reports: No Symptoms Skin: Reports: No Symptoms Psychiatric: Reports: No Symptoms Neurological: Reports: No Symptoms Hematologic/Lymphatic: Reports: No Symptoms Immunologic: Reports: No Symptoms Exam - Exam Exam: See Below - Vital Signs Vital Signs: Last Vital Signs Temp 99.1 F 08/10/18 23:44 Pulse 64 08/10/18 23:44 Resp 22 H 08/10/18 23:44 BP 104/77 08/10/18 23:44 Pulse Ox 91 L 08/10/18 23:44 Weight: 118 lb 11.2 oz - Exam Quality Assessment: DVT Prophylaxis General: Alert, Oriented, Cooperative. No: Mild Distress HEENT: Conjunctiva Clear, EACs Clear, EOMI, Hearing Intact, Mucosa Moist & [place] , Nares Patent, Posterior Pharynx Clear, PERRLA Neck: Supple, Trachea Midline Lungs: Normal Respiratory Effort, Decreased Breath Sounds Cardiovascular: Regular Rate, Irregular Rhythm GI/Abdominal Exam: Normal Bowel Sounds, Soft, Non-Tender, No Distention, No Abnormal Bruit (Female) Exam: Deferred Rectal (Female) Exam: Deferred Back Exam: Normal Inspection, Full Range of Motion Extremities: Normal Inspection, Normal Range of Motion, Non-Tender, No Pedal Edema, Normal Capillary Refill Peripheral Pulses: 2+: Radial (L), Radial (R), Dorsalis Pedis (L), Dorsalis Pedis (R) Skin: Warm, Dry, Intact Neurological: Cranial Nerves Intact (grossly ) Neuro Extensive - Mental Status: Alert, Oriented x3, Normal Mood/Affect - Patient Data Lab Results Last 24 hrs: Laboratory Results - last 24 hr 08/10/18 08/10/18 08/10/18 Range/Units 21:00 21:00 21:00 WBC 10.67 H (3.98-10.04) K/mm3 RBC 4.82 (3.98-5.22) M/mm3 Hgb 14.0 (11.2-15.7) gm/L Hct 43.2 (34.1-44.9) % MCV 89.6 (79.4-94.8) fl MCH 29.0 (25.6-32.2) pg MCHC 32.4 (32.2-35.5) g/dl RDW Std Deviation 45.2 (36.4-46.3) fL Plt Count 117 L (182-369) K/mm3 MPV 12.3 (9.4-12.3) fl Neutrophils % (Manual) 69 H (40-60) % Band Neutrophils % 0 (0-10) % Lymphocytes % (Manual) 21 (20-40) % Atypical Lymphs % 0 % Monocytes % (Manual) 9 (2-10) % Eosinophils % (Manual) 1 (0.7-5.8) % Basophils % (Manual) 0 L (0.1-1.2) Platelet Estimate Decreased Plt Morphology Comment See note RBC Morph Comment Normal Puncture Site ABG pH (7.35-7.45) ABG pCO2 (35.0-45.0) mmHg ABG pO2 (80.0-100.0) mmHg ABG HCO3 (22.0-26.0) meq/L ABG O2 Saturation (96.0-97.0) % ABG Base Excess (-2-2.0) A-a Gradient mmHg O2 Delivery Device FiO2 (21.00-100.00) % Sodium 141 (136-145) mEq/L Potassium 2.9 L (3.5-5.1) mEq/L Chloride 101 (98-107) mEq/L Carbon Dioxide 27 (21-32) mEq/L Anion Gap 15.9 H (5-15) BUN 15 (7-18) mg/dL Creatinine 1.0 (0.55-1.02) mg/dL Est Cr Clr Drug Dosing 28.47 mL/min Estimated GFR (MDRD) 52 (>60) mL/min BUN/Creatinine Ratio 15.0 (14-18) Glucose 110 (83-115) mg/dL Calcium 9.3 (8.5-10.1) mg/dL Magnesium 1.7 L (1.8-2.4) mg/dl Total Bilirubin 1.1 H (0.2-1.0) mg/dL AST 22 (15-37) U/L ALT 20 (14-59) U/L Alkaline Phosphatase 81 (46-116) U/L Total Protein 7.8 (6.4-8.2) g/dl Albumin 3.6 (3.4-5.0) g/dl Globulin 4.2 gm/dL Albumin/Globulin Ratio 0.9 L (1-2) 08/10/18 08/11/18 Range/Units 21:30 06:30 WBC (3.98-10.04) K/mm3 RBC (3.98-5.22) M/mm3 Hgb (11.2-15.7) gm/L Hct (34.1-44.9) % MCV (79.4-94.8) fl MCH (25.6-32.2) pg MCHC (32.2-35.5) g/dl RDW Std Deviation (36.4-46.3) fL Plt Count (182-369) K/mm3 MPV (9.4-12.3) fl Neutrophils % (Manual) (40-60) % Band Neutrophils % (0-10) % Lymphocytes % (Manual) (20-40) % Atypical Lymphs % % Monocytes % (Manual) (2-10) % Eosinophils % (Manual) (0.7-5.8) % Basophils % (Manual) (0.1-1.2) Platelet Estimate Plt Morphology Comment RBC Morph Comment Puncture Site Lt radial ABG pH 7.50 H (7.35-7.45) ABG pCO2 32.6 L (35.0-45.0) mmHg ABG pO2 55.0 L (80.0-100.0) mmHg ABG HCO3 25.4 (22.0-26.0) meq/L ABG O2 Saturation 89.5 L (96.0-97.0) % ABG Base Excess 3.1 H (-2-2.0) A-a Gradient 38 mmHg O2 Delivery Device Room air FiO2 21.00 (21.00-100.00) % Sodium 143 (136-145) mEq/L Potassium 3.2 L (3.5-5.1) mEq/L Chloride 104 (98-107) mEq/L Carbon Dioxide 29 (21-32) mEq/L Anion Gap 13.2 (5-15) BUN 15 (7-18) mg/dL Creatinine 0.9 (0.55-1.02) mg/dL Est Cr Clr Drug Dosing 31.63 mL/min Estimated GFR (MDRD) 59 (>60) mL/min BUN/Creatinine Ratio 16.7 (14-18) Glucose 92 (83-115) mg/dL Calcium 8.9 (8.5-10.1) mg/dL Magnesium (1.8-2.4) mg/dl Total Bilirubin (0.2-1.0) mg/dL AST (15-37) U/L ALT (14-59) U/L Alkaline Phosphatase (46-116) U/L Total Protein (6.4-8.2) g/dl Albumin (3.4-5.0) g/dl Globulin gm/dL Albumin/Globulin Ratio (1-2) Result Diagrams: 08/10/18 21:00 08/11/18 06:30 Rafael Results Last 24 hrs: Microbiology 08/10/18 21:45 Anaerobic Blood Culture - Final Blood - Venous - Lab Draw - Problem List (1) Bronchitis SNOMED Code(s): 05817941 ICD Code: J40 - BRONCHITIS, NOT SPECIFIED ACUTE OR CHRONIC Status: Acute Priority: High Current Visit: Yes (2) Hypokalemia SNOMED Code(s): 78295614 ICD Code: E87.6 - HYPOKALEMIA Status: Acute Priority: High Current Visit: Yes (3) Hypomagnesemia SNOMED Code(s): 944949214 ICD Code: E83.42 - HYPOMAGNESEMIA Status: Acute Priority: High Current Visit: Yes Problem List Initiated/Reviewed/Updated: Yes Orders Last 24hrs: Active Orders 24 hr Category Date Time Status Patient Status [ADT] Routine ADT 08/10/18 22:46 Active Dietary Supplements [RC] BIDAC Care 08/11/18 00:11 Active Regular Diet [DIET] Diet 08/11/18 Breakfast Active CXR [Chest 2V] [CR] Stat Exams 08/10/18 20:35 Taken CULTURE BLOOD [BC] Stat Lab 08/10/18 21:40 Received CULTURE BLOOD [BC] Stat Lab 08/10/18 21:45 Results Acetaminophen [Tylenol] Med 08/11/18 00:19 Active 650 mg PO Q4H PRN Apixaban [Eliquis] Med 08/11/18 01:00 Active 2.5 mg PO BID Aspirin Med 08/11/18 09:00 Pending 81 mg PO DAILY Bisacodyl [Dulcolax] Med 08/11/18 00:19 Pending 10 mg PO DAILY PRN Famotidine [Pepcid] Med 08/11/18 09:00 Pending 20 mg PO DAILY Levothyroxine Med 08/11/18 09:00 Pending 50 mcg PO DAILY Lisinopril [Zestril] Med 08/11/18 09:00 Pending 20 mg PO DAILY Metoprolol Succinate [Toprol XL] Med 08/11/18 09:00 Pending 12.5 mg PO DAILY Mirtazapine [Remeron] Med 08/11/18 01:00 Active 7.5 mg PO BEDTIME Pharmacy to Dose - Magnesium R [Pharmacy to Dose - Med 08/11/18 07:30 Ordered Magnesium Replacement] 1 dose .XX ASDIRECTED Pharmacy to Dose - Potassium R [Pharmacy to Dose - Med 08/11/18 07:30 Ordered Potassium Replacement] 1 dose .XX ASDIRECTED Sertraline [Zoloft] Med 08/11/18 21:00 Active 25 mg PO BEDTIME amLODIPine [Norvasc] Med 08/11/18 09:00 Pending 10 mg PO DAILY atorvaSTATin Med 08/11/18 21:00 Pending 20 mg PO BEDTIME hydroCHLOROthiazide Med 08/11/18 09:00 Pending 12.5 mg PO DAILY Blood Culture x2 Reflex Set [OM.PC] Stat Oth 08/10/18 20:56 Ordered Resuscitation Status Routine Resus Stat 08/11/18 00:11 Ordered Medication Orders Acetaminophen (Tylenol) 650 mg PO Q4H PRN PRN Reason: Fever Amlodipine Besylate (Norvasc) 10 mg PO DAILY [facility] Apixaban (Eliquis) 2.5 mg PO BID [facility] Last Admin: 08/11/18 01:32 Dose: 2.5 mg Aspirin (Aspirin) 81 mg PO DAILY [facility] Bisacodyl (Dulcolax) 10 mg PO DAILY PRN PRN Reason: Constipation Famotidine (Pepcid) 20 mg PO DAILY [facility] Hydrochlorothiazide (Hydrochlorothiazide) 12.5 mg PO DAILY [facility] Levothyroxine Sodium (Levothyroxine) 50 mcg PO DAILY [facility] Magnesium Sulfate (Pharmacy To Dose - Magnesium Replacement) 1 dose .XX ASDIRECTED [facility] Metoprolol Succinate (Toprol Xl) 12.5 mg PO DAILY [facility] Mirtazapine (Remeron) 7.5 mg PO BEDTIME [facility] Last Admin: 08/11/18 01:33 Dose: 7.5 mg Non-Formulary Medication (Atorvastatin) 20 mg PO BEDTIME [facility] Non-Formulary Medication (Lisinopril [Zestril]) 20 mg PO DAILY [facility] Potassium Chloride (Pharmacy To Dose - Potassium Replacement) 1 dose .XX ASDIRECTED [facility] Sertraline HCl (Zoloft) 25 mg PO BEDTIME [facility] Assessment/Plan Comment:: I/P: Acute: Bronchitis -Productive cough with clear sputum for past 10 days, fever, and dyspnea -Similar symptoms 3 weeks prior -WBC 10.67 -CRP pending -ED ABG: PH 7.50, PCO2 32.6, PO2 55.0, HCO3 25.4, O2 saturation 89.5. -O2 as needed -IS/Acapella/RT -Robitussin DM -IV fluids as ordered -Start azithromcyin 500mg IV now, 250mg daily PO thereafter -Tylenol for fever -VRP pending -Influenza negative -Sputum culture ordered -Repeat CXR in 24-48 hours -Blood cultures pending Hypokalemia -Potassium 2.9-->3.2 -Has not been eating or drinking much 2/2 above -Family reports patient does not like taking oral potassium -Pharmacy to supplement Hypomagnesemia -Magnesium 1.7 -Has not been eating or drinking much 2/2 above -Pharmacy to supplement Chronic: Hard of hearing Impaired vision Chronic A-fib on Eliquis HLD HTN SD in march 2016 Arthritis CVA -> right sided hemiparesis -> largely recovered Hypothyroidism Right breast Adenocarcinoma, S/P Rtx Coronary artery stent X2 Pacemaker Hysterectomy Plan Admit to medical floor observation with telemetry Other orders as indicated above PT/OT Home medications as ordered CM/SW for discharge planning Consult spiritual care DVT prophylaxis: Home eliquis Code status: DNR/DNI; PCP: Dr. Pedersen
[2018-08-11] MEDS ORDERED: Sodium Chloride 0.9% 10 ML Syringe FLUSH PRN (07:34)
--- NOTE | 2018-08-11 08:12 | CR ---
Chest: Two views of the chest are were obtained. Comparison: Prior chest x-ray of 12/07/17. Heart is enlarged. Tortuous thoracic aorta seen. Bichamber pacemaker is noted. Surgical clips are seen within the right axillary region. Bony structures are unremarkable. Diaphragms are slightly flattened on the lateral view. Lung markings are slightly increased which appear to be more prominent than on prior exam possibly due to bronchitis or pulmonary vascular congestion. Impression: 1. Mild cardiomegaly. 2. Slight increased lung markings in prior study either due to bronchitis or pulmonary vascular congestion. 3. Emphysematous changes. 4. Other incidental findings. Diagnostic code #3
[2018-08-11] MEDS ORDERED: LISINOPRIL 20 MG PO SCH (09:00)
[2018-08-11] MEDS: AMLODIPINE 10 MG PO SCH ×3 (10:51→12:00)
[2018-08-11] MEDS: LEVOTHYROXINE 50 MCG PO SCH (10:52)
[2018-08-11] MEDS: ASPIRIN 81 MG PO SCH ×3 (10:52→12:00)
[2018-08-11] MEDS: HYDROCHLOROTHIAZIDE 25 MG PO SCH (10:53)
[2018-08-11] MEDS: FAMOTIDINE 20 MG PO SCH (10:53)
[2018-08-11] MEDS: METOPROLOL SUCCINATE 25 MG PO SCH (10:54)
[2018-08-11] MEDS: Potassium Chloride 10 MEQ in Premix Bag 1 BAG IV SCH ×3 (11:26→15:41)
[2018-08-11] MEDS ORDERED: Potassium Chloride 20 MEQ Tab.ER PO ONE (12:00)
[2018-08-11] MEDS ORDERED: Magnesium Oxide 400 MG Tab PO ONE (12:00)
[2018-08-11] MEDS ORDERED: Ondansetron 4 MG/2 ML SDV IV PRN (12:14)
[2018-08-11] MEDS ORDERED: Docusate Sodium 100 MG Cap PO PRN (12:14)
[2018-08-11] MEDS ORDERED: Metoprolol Tartrate 5 MG/5 ML SDV IVPUSH PRN (12:18)
[2018-08-11] MEDS ORDERED: hydrALAZINE 20 MG/ML SDV IVPUSH PRN (12:18)
[2018-08-11] MEDS ORDERED: Sodium Chloride 0.9% 1,000 ML IV SCH (12:30)
[2018-08-11] MEDS ORDERED: Azithromycin 250 MG in Sodium Chloride 0.9% 250 ML IV SCH (12:30)
[2018-08-11] MEDS ORDERED: guaiFENesin/Dextromethorphan 100-10 MG/5 ML Soln 5 ML Cup PO PRN (14:00)
[2018-08-11] MEDS ORDERED: Azithromycin 500 MG in Sodium Chloride 0.9% 250 ML IV ONE (18:00)
[2018-08-11] MEDS ORDERED: SERTRALINE 25 MG PO SCH (21:00)
[2018-08-11] MEDS ORDERED: MIRTAZAPINE 7.5 MG PO SCH (21:00)
[2018-08-11] MEDS ORDERED: ATORVASTATIN 20 MG PO SCH (21:00)
[2018-08-12] MEDS: LEVOTHYROXINE 50 MCG PO SCH (05:41)
[2018-08-12] MEDS: APIXABAN 5 MG PO SCH (08:29)
[2018-08-12] MEDS: AMLODIPINE 10 MG PO SCH (08:29)
[2018-08-12] MEDS: ASPIRIN 81 MG PO SCH (08:29)
[2018-08-12] MEDS: HYDROCHLOROTHIAZIDE 25 MG PO SCH (08:29)
[2018-08-12] MEDS: FAMOTIDINE 20 MG PO SCH (08:30)
[2018-08-12] MEDS: METOPROLOL SUCCINATE 25 MG PO SCH (08:30)
[2018-08-12] MEDS ORDERED: LISINOPRIL 20 MG PO SCH (09:00)
--- NOTE | 2018-08-12 09:59 | CR ---
Chest: Two views of the chest were obtained. Comparison: Prior chest x-ray of 08/10/18. Heart is enlarged. Tortuous thoracic aorta is seen. Pacemaker is noted. Lung markings are mildly increased. Findings are felt to be stable from prior exam when allowing for differences in technique. Lungs are hyperinflated compatible with emphysematous change. Impression: 1. Stable findings as described above. No change from previous chest x-ray is seen. Diagnostic code #3
[2018-08-12] MEDS ORDERED: Magnesium Oxide 400 MG Tab PO ONE ×2 (11:03→16:00)
[2018-08-12] MEDS ORDERED: Azithromycin 250 MG Tab PO ONE (11:15)
--- NOTE | 2018-08-12 11:42 | PCM.DCSUM1 ---
Discharge Summary - Hospital Course HPI Initial Comments: Makenzie Talbert is an 88 yo female who presented to ED the evening of accompanied by her daughter with fever, cough, and congestion. She is reportedly had a cough with clear sputum for the past 10 days and worsening dyspnea for the past 4-5 days. She's had decreased oral intake and a fever up to 101.7. She was taking imcm-tou-bmtlrwa cough syrup and no other home meds for this. No recent history of vomiting, diarrhea, or urinary symptoms. Daughter reports patient had similar symptoms about 3 weeks ago which lasted for a few days but she was never evaluated or given treatment. In the ED a 12-lead EKG was obtained showing A. fib with to ventricular paced beats at [address] segment is decreased in the lateral leads. QT is prolonged at 579. There is no change from prior twelve-lead EKG. Temp is 37.3 Celsius. Pulse 64. Respirations 22. Blood pressure 104/77. Pulse ox 91%. Labs are obtained: WBC is very slightly elevated at 10.67. Hemoglobin 14.0. Hematocrit 43.2. She is normocytic. Platelets are low at 117,000. Neutrophils are elevated at 69%. There is no bandemia. Sodium is 141. Potassium low at 2.9. Chloride 101. Carbon oxide 27. Anion gap is slightly elevated at 15.9. BUN is 15. Creatinine 1.0. EGFR is 52. Gross is 110. Calcium 9.3. Magnesium low at 1.7. Bilirubin slightly high at 1.1. AST 22, ALT 20, alkaline phosphatase 81. Protein is 7.8. EGDs obtained of the left radial showing a pH of 7.50, PCO2 of 32.6, PO2 of 55.0, HCO3 of 25.4, O2 saturation of 89.5, base excess of 3.1 this is obtainable on room air. She is given 40 mEq of oral potassium solution. Chest x-ray is obtained and interpreted by Dr. Alex as "1. Mild cardiomegaly. 2. Slight increased lung markings and prior study either due to bronchitis or pulmonary congestion. 3. Emphysematous changes. 4. Other incidental findings." ED provider to discuss findings with patient's daughter who would like the patient placed in observation overnight. She carries a history of: Hard of hearing, impaired vision, chronic A. 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 She is a former smoker. She subsequently admitted to the medical floor observation status on telemetry. She is a DNR/DNI. Her PCP is Dr. Pedersen. - Discharge Data Discharge Date: 08/12/18 (Admit date: 08/10/18) Discharge Disposition: DC/Tfer to Other 70 Condition: Good - Discharge Diagnosis/Problem(s) (1) Bronchitis SNOMED Code(s): 37202107 ICD Code: J40 - BRONCHITIS, NOT SPECIFIED ACUTE OR CHRONIC Status: Acute Priority: High Current Visit: Yes (2) Hypokalemia SNOMED Code(s): 56691394 ICD Code: E87.6 - HYPOKALEMIA Status: Acute Priority: High Current Visit: Yes (3) Hypomagnesemia SNOMED Code(s): 316221959 ICD Code: E83.42 - HYPOMAGNESEMIA Status: Acute Priority: High Current Visit: Yes - Patient Summary/Data Consults: Consultations 08/11/18 10:31 OT Evaluation and Treatment [CONS] Routine PT Evaluation and Treatment [CONS] Routine 08/11/18 12:14 Consult to Case Management/Metrology Specialist [CONS] Routine Consult to Spiritual Care [CONS] Routine Labs Pending at D/C: Awaiting RVP to return from [facility]. Influenza A ruled "equivocal" by our usual lab and sample has been forwarded to [facility]. She is outside of treatment window regardless. Recommended Follow-up Testing/Procedures: Follow-up with PCP within 5-7 days of discharge. Recommend recheck potassium and magnesium at that appointment. Hospital Course: I/P: Acute: Bronchitis -Productive cough with clear sputum for past 10 days, fever, and dyspnea -Similar symptoms 3 weeks prior -WBC 10.67-->6.08 -CRP 20.6-->14.0 -ED ABG: PH 7.50, PCO2 32.6, PO2 55.0, HCO3 25.4, O2 saturation 89.5. -O2 as needed -IS/Acapella/RT -Robitussin DM -IV fluids as ordered -> discontinue -Start azithromcyin 500mg IV now, 250mg daily PO thereafter -Tylenol for fever -VRP negative however influenza A "equivocal" -Influenza screen negative -Sputum culture ordered - has not produced sample -Repeat CXR today 08/12/18: Stable findings -Blood cultures negative Hypokalemia -Potassium 2.9-->3.2-->3.3 -Has not been eating or drinking much 2/2 above -Family reports patient does not like taking oral potassium and longstanding history of chronic hypokalemia -Pharmacy to supplement Hypomagnesemia -Magnesium 1.7-->1.8-->1.7 -Has not been eating or drinking much 2/2 above -Pharmacy to supplement Chronic: Hard of hearing Impaired vision Chronic A-fib on Eliquis HLD HTN AK in march 2016 Arthritis CVA -> right sided hemiparesis -> largely recovered Hypothyroidism Right breast Adenocarcinoma, S/P Rtx Coronary artery stent X2 Pacemaker Hysterectomy Plan Admit to medical floor observation with telemetry Other orders as indicated above PT/OT Home medications as ordered CM/SW for discharge planning Consult spiritual care DVT prophylaxis: Home eliquis Code status: DNR/DNI; PCP: Dr. Pedersen Makenzie came in to our ED complaining of respiratory symptoms. She was admitted to the hospital for hypokalemia, hypomagnesemia, and a viral upper respiratory infection. She was found to have bronchitis and given a 500 mg dose of azithromycin. Repeat chest x-ray today remains stable. She will have for following 250 mg by mouth doses of azithromycin. Daughter has been at bedside and reports patient has had a long-standing history of irregular electrolytes. She reports patient's PCP has been attempting to supplement this but has finally stopped as patient has been grossly noncompliant. While here Makenzie has been refusing to wear her telemetry and also refusing some medications. She has been adamant about not taking by mouth potassium. This and magnesium have been supplemented primarily by IV. Daughter reports there is a good chance patient will not take supplementation on discharge but "we can try." Influenza screen was negative but viral respiratory panel did return today with "equivocal" influenza A. This has been forwarded to the state lab for further analysis as there is a chance she may have a type of influenza that our lab is not tested for. Regardless of what returns patient has had symptoms for 10+ days and is outside of treatment window. She will be discharged on 3 more days of 40 mg twice a day potassium along with 3 days of 400 mg daily magnesium supplementation. She will also receive 3 more days of 250 mg oral azithromycin. Patient's PCP, Dr. Pedersen, was contacted and updated on plan. She should follow-up with him within 5-7 days. Recommend rechecking potassium and magnesium at that time. Acted to continue to utilize her incentive spirometry and Acapella until symptoms completely resolve. Was directed to stay hydrated. She did see our dietitian who gave them resources for high potassium and magnesium foods. PT/OT did evaluate her with no concerns noted. All prior home medications were continued. She was instructed to return to the ED, contact her PCP, or go to the walk-in clinic should symptoms worsen. She will be discharged today back to [place]. - Patient Instructions Diet: Usual Diet as Tolerated Activity: As Tolerated Driving: Do Not Drive Showering/Bathing: May Shower Notify Provider of: Fever, Increased Pain, Nausea and/or Vomiting - Discharge Plan *PRESCRIPTION DRUG MONITORING PROGRAM REVIEWED*: Not Applicable *COPY OF PRESCRIPTION DRUG MONITORING REPORT IN PATIENT VON: Not Applicable Prescriptions/Med Rec: Azithromycin [Zithromax] 250 mg PO Q24H #3 tablet Magnesium Oxide 400 mg PO DAILY #3 tab Potassium Chloride 40 meq PO BID #6 tablet.er Home Medications: Home Meds Levothyroxine Sodium [Synthroid] 50 mcg PO DAILY 03/27/17 [History] Lisinopril [Zestril] 20 mg PO DAILY 03/27/17 [History] Metoprolol Succinate [Toprol XL] 12.5 mg PO DAILY 03/27/17 [History] amLODIPine [Norvasc] 10 mg PO DAILY 03/27/17 [History] atorvaSTATin [Lipitor] 20 mg PO BEDTIME 03/27/17 [History] Mirtazapine 7.5 mg PO BEDTIME 02/17/18 [History] Acetaminophen [Tylenol] 650 mg PO Q4HR PRN 08/10/18 [History] Apixaban [Eliquis] 2.5 mg PO BID 08/10/18 [History] Aspirin 81 mg PO DAILY 08/10/18 [History] Bisacodyl 10 mg PO DAILY PRN 08/10/18 [History] Famotidine 20 mg PO DAILY 08/10/18 [History] Oxymetazoline [Afrin Original 0.05% Nasal Magnet] 1 spray GURU DAILY PRN 08/10/18 [History] Sertraline [Zoloft] 25 mg PO BEDTIME 08/10/18 [History] hydroCHLOROthiazide [Hydrochlorothiazide] 12.5 mg PO DAILY 08/10/18 [History] Azithromycin [Zithromax] 250 mg PO Q24H #3 tablet 08/12/18 [Rx] Magnesium Oxide 400 mg PO DAILY #3 tab 08/12/18 [Rx] Potassium Chloride 40 meq PO BID #6 tablet.er 08/12/18 [Rx] Oxygen Therapy Mode: Room Air Patient Handouts: Hypomagnesemia, Hypokalemia, Viral Respiratory Infection, [id number], Upper Respiratory Infection, Adult, [id number]-[id number], Potassium Content of Foods Referrals: Yonatan Pedersen MD [Primary Care Provider] - 08/16/18 10:10 am - Discharge Summary/Plan Comment DC Time >30 min.: Yes (45 mins ) - General Info Date of Service: 08/12/18 Admission Dx/Problem (Free Text: Admission Diagnosis/Problem Admission Diagnosis/Problem Hypokalemia Subjective Update: In to see Makenzie. Daughter is at bedside. We discussed the importance of continuing supplementation for her low potassium and magnesium. Daughter reports patient will likely not take supplementation medication however "we can try." She continues to have a cough and has been utilizing IS and Acapella. VRP returned "equivocal" for influenza A. Our lab contacted [facility] as it is a send out, and they're going to forward this on the state as she may have a type of influenza that they do not check for. I was told this may return in 1- 2 days. She continues to receive by mouth azithromycin. This will be continued on discharge. Otherwise she looks good clinically and wants to go back home. She will be discharged today. No nursing, patient, or daughter concerns. Functional Status: Reports: Pain Controlled, Tolerating Diet, Ambulating, Urinating, Incentive Spirometry, Other (acapella ). Denies: New Symptoms - Review of Systems General: Reports: No Symptoms. Denies: Fever, Weakness, Fatigue, Malaise, Chills HEENT: Reports: No Symptoms. Denies: Headaches, Sore Throat Pulmonary: Reports: Cough, Wheezing. Denies: Shortness of Breath, Pleuritic Chest Pain, Sputum Cardiovascular: Reports: No Symptoms. Denies: Chest Pain, Palpitations, Dyspnea on Exertion, Edema, Lightheadedness Gastrointestinal: Reports: No Symptoms. Denies: Abdominal Pain, Constipation, Diarrhea, Nausea, Vomiting Genitourinary: Reports: No Symptoms. Denies: Pain Musculoskeletal: Reports: No Symptoms Skin: Reports: No Symptoms Neurological: Reports: No Symptoms. Denies: Confusion, Difficulty Walking, Gait Disturbance Psychiatric: Reports: No Symptoms - Patient Data Vitals - Most Recent: Last Vital Signs Temp 98.2 F 08/12/18 08:08 Pulse 75 08/12/18 08:30 Resp 14 08/12/18 08:08 BP 147/59 H 08/12/18 08:30 Pulse Ox 95 08/12/18 08:08 Weight - Most Recent: 119 lb I&O - Last 24 hours: Intake & Output 08/11/18 08/12/18 08/12/18 22:59 06:59 14:59 Intake Total 1400 550 360 Balance 1400 550 360 Lab Results - Last 24 hrs: Laboratory Results - last 24 hr 08/11/18 08/11/18 08/11/18 Range/Units 07:44 13:16 13:16 WBC (3.98-10.04) K/mm3 RBC (3.98-5.22) M/mm3 Hgb (11.2-15.7) gm/L Hct (34.1-44.9) % MCV (79.4-94.8) fl MCH (25.6-32.2) pg MCHC (32.2-35.5) g/dl RDW Std Deviation (36.4-46.3) fL Plt Count (182-369) K/mm3 MPV (9.4-12.3) fl Neut % (Auto) (34.0-71.1) % Lymph % (Auto) (19.3-51.7) % [place] % (Auto) (4.7-12.5) % Eos % (Auto) (0.7-5.8) Baso % (Auto) (0.1-1.2) % Neut # (Auto) (1.56-6.13) K/mm3 Lymph # (Auto) (1.18-3.74) K/mm3 [place] # (Auto) (0.24-0.36) K/mm3 Eos # (Auto) (0.04-0.36) K/mm3 Baso # (Auto) (0.01-0.08) K/mm3 Sodium (136-145) mEq/L Potassium (3.5-5.1) mEq/L Chloride (98-107) mEq/L Carbon Dioxide (21-32) mEq/L Anion Gap (5-15) BUN (7-18) mg/dL Creatinine (0.55-1.02) mg/dL Est Cr Clr Drug Dosing mL/min Estimated GFR (MDRD) (>60) mL/min BUN/Creatinine Ratio (14-18) Glucose (83-115) mg/dL Calcium (8.5-10.1) mg/dL Magnesium (1.8-2.4) mg/dl C-Reactive Protein 20.6 H* (<1.0) mg/dL NT-Pro-B Natriuret Pep 1207 H (0-450) pg/mL Adenovirus (PCR) Not detected (Not Detected) B. pertussis DNA (PCR) Not detected (Not Detected) B.parapertussis DNA PCR Not detected (Not Detected) C. pneumoniae DNA (PCR) Not detected (Not Detected) Coronavirus (PCR) Not detected (Not Detected) Human Metapneumovir PCR Not detected (Not Detected) Influenza A (RT-PCR) Equivocal (Not Detected) Influenza B (RT-PCR) Not detected (Not Detected) M. pneumoniae (PCR) Not detected (Not Detected) Parainfluen 1,2,3,4 PCR Not detected (Not Detected) RSV (PCR) Not detected (Not Detected) Entero/Rhino (PCR) Not detected (Not Detected) 08/11/18 08/12/18 08/12/18 Range/Units 13:16 05:34 05:34 WBC 6.08 (3.98-10.04) K/mm3 RBC 4.39 (3.98-5.22) M/mm3 Hgb 12.9 (11.2-15.7) gm/L Hct 40.2 (34.1-44.9) % MCV 91.6 (79.4-94.8) fl MCH 29.4 (25.6-32.2) pg MCHC 32.1 L (32.2-35.5) g/dl RDW Std Deviation 45.6 (36.4-46.3) fL Plt Count 131 L (182-369) K/mm3 MPV 12.6 H (9.4-12.3) fl Neut % (Auto) 50.6 (34.0-71.1) % Lymph % (Auto) 31.9 (19.3-51.7) % [place] % (Auto) 13.7 H (4.7-12.5) % Eos % (Auto) 3.3 (0.7-5.8) Baso % (Auto) 0.3 (0.1-1.2) % Neut # (Auto) 3.08 (1.56-6.13) K/mm3 Lymph # (Auto) 1.94 (1.18-3.74) K/mm3 [place] # (Auto) 0.83 H (0.24-0.36) K/mm3 Eos # (Auto) 0.20 (0.04-0.36) K/mm3 Baso # (Auto) 0.02 (0.01-0.08) K/mm3 Sodium 138 (136-145) mEq/L Potassium 3.3 L (3.5-5.1) mEq/L Chloride 103 (98-107) mEq/L Carbon Dioxide 26 (21-32) mEq/L Anion Gap 12.3 (5-15) BUN 18 (7-18) mg/dL Creatinine 1.0 (0.55-1.02) mg/dL Est Cr Clr Drug Dosing 28.47 mL/min Estimated GFR (MDRD) 52 (>60) mL/min BUN/Creatinine Ratio 18.0 (14-18) Glucose 94 (83-115) mg/dL Calcium 9.0 (8.5-10.1) mg/dL Magnesium 1.8 1.7 L (1.8-2.4) mg/dl C-Reactive Protein 14.0 H* (<1.0) mg/dL NT-Pro-B Natriuret Pep (0-450) pg/mL Adenovirus (PCR) (Not Detected) B. pertussis DNA (PCR) (Not Detected) B.parapertussis DNA PCR (Not Detected) C. pneumoniae DNA (PCR) (Not Detected) Coronavirus (PCR) (Not Detected) Human Metapneumovir PCR (Not Detected) Influenza A (RT-PCR) (Not Detected) Influenza B (RT-PCR) (Not Detected) M. pneumoniae (PCR) (Not Detected) Parainfluen 1,2,3,4 PCR (Not Detected) RSV (PCR) (Not Detected) Entero/Rhino (PCR) (Not Detected) 08/12/18 Range/Units 05:34 WBC (3.98-10.04) K/mm3 RBC (3.98-5.22) M/mm3 Hgb (11.2-15.7) gm/L Hct (34.1-44.9) % MCV (79.4-94.8) fl MCH (25.6-32.2) pg MCHC (32.2-35.5) g/dl RDW Std Deviation (36.4-46.3) fL Plt Count (182-369) K/mm3 MPV (9.4-12.3) fl Neut % (Auto) (34.0-71.1) % Lymph % (Auto) (19.3-51.7) % [place] % (Auto) (4.7-12.5) % Eos % (Auto) (0.7-5.8) Baso % (Auto) (0.1-1.2) % Neut # (Auto) (1.56-6.13) K/mm3 Lymph # (Auto) (1.18-3.74) K/mm3 [place] # (Auto) (0.24-0.36) K/mm3 Eos # (Auto) (0.04-0.36) K/mm3 Baso # (Auto) (0.01-0.08) K/mm3 Sodium (136-145) mEq/L Potassium (3.5-5.1) mEq/L Chloride (98-107) mEq/L Carbon Dioxide (21-32) mEq/L Anion Gap (5-15) BUN (7-18) mg/dL Creatinine (0.55-1.02) mg/dL Est Cr Clr Drug Dosing mL/min Estimated GFR (MDRD) (>60) mL/min BUN/Creatinine Ratio (14-18) Glucose (83-115) mg/dL Calcium (8.5-10.1) mg/dL Magnesium (1.8-2.4) mg/dl C-Reactive Protein (<1.0) mg/dL NT-Pro-B Natriuret Pep 891 H (0-450) pg/mL Adenovirus (PCR) (Not Detected) B. pertussis DNA (PCR) (Not Detected) B.parapertussis DNA PCR (Not Detected) C. pneumoniae DNA (PCR) (Not Detected) Coronavirus (PCR) (Not Detected) Human Metapneumovir PCR (Not Detected) Influenza A (RT-PCR) (Not Detected) Influenza B (RT-PCR) (Not Detected) M. pneumoniae (PCR) (Not Detected) Parainfluen 1,2,3,4 PCR (Not Detected) RSV (PCR) (Not Detected) Entero/Rhino (PCR) (Not Detected) MICHELLE Results - Last 24 hrs: Microbiology 08/10/18 21:45 Aerobic Blood Culture - Preliminary Blood - Venous - Lab Draw NO GROWTH AFTER 1 DAY Anaerobic Blood Culture - Final 08/10/18 21:40 Aerobic Blood Culture - Preliminary Blood - Venous NO GROWTH AFTER 1 DAY Anaerobic Blood Culture - Preliminary NO GROWTH AFTER 1 DAY 08/11/18 07:44 Influenza Type A Antigen Screen - Final Nasal, Unspecified NEGATIVE INFLUENZA A VIRUS AG Influenza Type B Antigen Screen - Final NEGATIVE INFLUENZA B VIRUS AG Med Orders - Current: Current Medications Acetaminophen (Tylenol) 650 mg PO Q4H PRN PRN Reason: Fever Amlodipine Besylate (Norvasc) 10 mg PO DAILY [facility] Last Admin: 08/12/18 08:29 Dose: 10 mg Apixaban (Eliquis) 2.5 mg PO BID [facility] Last Admin: 08/12/18 08:29 Dose: 2.5 mg Aspirin (Aspirin) 81 mg PO DAILY [facility] Last Admin: 08/12/18 08:29 Dose: 81 mg Azithromycin (Zithromax) 250 mg PO Q24H [facility] Bisacodyl (Dulcolax) 10 mg PO DAILY PRN PRN Reason: Constipation Docusate Sodium (Colace) 100 mg PO BID PRN PRN Reason: Constipation Famotidine (Pepcid) 20 mg PO DAILY [facility] Last Admin: 03/14/19 08:30 Dose: 20 mg Guaifenesin/Phenylephrine HCl (Robitussin Dm) 10 ml PO TID@0700,1400,2100 PRN PRN Reason: Cough Hydralazine HCl (Apresoline) 10 mg IVPUSH Q6H PRN PRN Reason: Hypertension Hydrochlorothiazide (Hydrochlorothiazide) 12.5 mg PO DAILY [facility] Last Admin: 08/12/18 08:29 Dose: 12.5 mg Levothyroxine Sodium (Synthroid) 50 mcg PO ACBREAKFAST [facility] Last Admin: 08/12/18 05:41 Dose: 50 mcg Lisinopril (Prinivil) 20 mg PO DAILY [facility] Magnesium Oxide (Magnesium Oxide) 400 mg PO ONETIME ONE Stop: 08/12/18 16:01 Magnesium Sulfate (Pharmacy To Dose - Magnesium Replacement) 1 dose .XX ASDIRECTED [facility] Metoprolol Succinate (Toprol Xl) 12.5 mg PO DAILY [facility] Last Admin: 08/12/18 08:30 Dose: 12.5 mg Metoprolol Tartrate (Lopressor) 5 mg IVPUSH Q4H PRN PRN Reason: Tachycardia Ondansetron HCl (Zofran) 4 mg IV Q6H PRN PRN Reason: Nausea/Vomiting Atorvastatin 20 Mg * (Patient Own Med) 0 each PO BEDTIME [facility] Last Admin: 08/11/18 20:56 Dose: 1 each Mirtazapine 7.5 Mg Tab Patient Own Med 0 each PO BEDTIME [facility] Last Admin: 08/11/18 20:56 Dose: 1 each Potassium Chloride (Pharmacy To Dose - Potassium Replacement) 1 dose .XX ASDIRECTED [facility] Senna/Docusate Sodium (Senna Plus) 1 tab PO BID PRN PRN Reason: Constipation Sertraline HCl (Zoloft) 25 mg PO BEDTIME [facility] Last Admin: 08/11/18 20:56 Dose: 25 mg Sodium Chloride (Saline Flush) 10 ml FLUSH ASDIRECTED PRN PRN Reason: Keep Vein Open Discontinued Medications Azithromycin (Zithromax) 250 mg PO ONETIME ONE Stop: 08/12/18 11:16 Last Admin: 08/12/18 10:50 Dose: 250 mg Potassium Chloride 10 meq/ (Premix) 100 mls @ 100 mls/hr IV Q1H [facility] Stop: 08/11/18 14:29 Last Admin: 08/11/18 15:41 Dose: 100 mls/hr Sodium Chloride (Normal Saline) 1,000 mls @ 75 mls/hr IV ASDIRECTED [facility] Stop: 08/12/18 01:49 Last Admin: 08/11/18 12:26 Dose: 75 mls/hr Azithromycin 250 mg/ Sodium (Chloride) 250 mls @ 250 mls/hr IV Q24H [facility] Azithromycin 500 mg/ Sodium (Chloride) 250 mls @ 250 mls/hr IV ONETIME ONE Stop: 08/11/18 18:59 Last Admin: 08/11/18 17:51 Dose: 250 mls/hr Azithromycin 250 mg/ Sodium (Chloride) 250 mls @ 250 mls/hr IV Q24H [facility] Magnesium Sulfate/Dextrose 1 (gm/ Premix) 100 mls @ 100 mls/hr IV ONETIME ONE Stop: 08/12/18 10:59 Last Admin: 08/12/18 11:22 Dose: Not Given Lisinopril (Prinivil) 20 mg PO DAILY [facility] Magnesium Oxide (Magnesium Oxide) 400 mg PO ONETIME ONE Stop: 08/11/18 12:01 Magnesium Oxide (Magnesium Oxide) 400 mg PO ONETIME ONE Stop: 08/12/18 11:04 Last Admin: 08/12/18 11:24 Dose: 400 mg Mirtazapine (Remeron) 7.5 mg PO BEDTIME [facility] Last Admin: 08/11/18 01:33 Dose: 7.5 mg Lisinopril [Zestril] 20 Mg Patien Own Med 0 each PO DAILY [facility] Last Admin: 08/11/18 11:05 Dose: Not Given Potassium Chloride (Klor-Con M20) 40 meq PO ONETIME ONE Stop: 08/10/18 21:40 Last Admin: 08/10/18 22:00 Dose: Not Given Potassium Chloride (Potassium Chloride Solution) 40 meq PO ONETIME ONE Stop: 08/10/18 21:59 Last Admin: 08/10/18 22:22 Dose: 40 meq Potassium Chloride (Potassium Chloride Solution) 40 meq PO ONETIME ONE Stop: 08/10/18 22:08 Last Admin: 08/10/18 22:08 Dose: Not Given Potassium Chloride (Klor-Con M20) 40 meq PO ONETIME ONE Stop: 08/11/18 12:01 - Exam Quality Assessment: Reports: DVT Prophylaxis General: Reports: Alert, Oriented, Cooperative, No Acute Distress HEENT: Reports: Pupils Equal, Pupils Reactive, EOMI, Mucous Membr. Moist/[place] Neck: Reports: Supple, Trachea Midline, No JVD Lungs: Reports: Normal Respiratory Effort, Decreased Breath Sounds Cardiovascular: Reports: Regular Rate, Irregular Rhythm GI/Abdominal Exam: Normal Bowel Sounds, Soft, Non-Tender, No Distention, No Abnormal Bruit (Female) Exam: Deferred Rectal (Female) Exam: Deferred Back Exam: Reports: Normal Inspection, Full Range of Motion Extremities: Normal Inspection, Normal Range of Motion, Non-Tender, No Pedal Edema, Normal Capillary Refill Skin: Reports: Warm, Dry, Intact Neurological: Reports: No New Focal Deficit Psy/Mental Status: Reports: Alert, Normal Affect
[2018-08-12] MEDS ORDERED: Azithromycin 250 MG in Sodium Chloride 0.9% 250 ML IV SCH (12:30)
[2018-08-13] MEDS ORDERED: Azithromycin 250 MG Tab PO SCH (11:00)
[2018-08-14] MEDS ORDERED: LISINOPRIL 20 MG PO SCH (09:00)
== END 2018-08-12 17:35 | disposition other institution (70) ==
LOC: JD.ED 19:38 → JD.MS 23:05
PROVIDERS: ADMIT Internal Medicine; ATTEND Internal Medicine
DX: J40 Bronchitis, not specified as acute or chronic (principal); E87.6 Hypokalemia; E83.42 Hypomagnesemia; I48.2 Chronic atrial fibrillation; I10 Essential (primary) hypertension; E78.5 Hyperlipidemia, unspecified; I25.2 Old myocardial infarction; H54.7 Unspecified visual loss; E03.9 Hypothyroidism, unspecified; Z87.891 Personal history of nicotine dependence; Z85.3 Personal history of malignant neoplasm of breast; Z92.3 Personal history of irradiation; Z79.01 Long term (current) use of anticoagulants; Z79.899 Other long term (current) drug therapy; Z95.5 Presence of coronary angioplasty implant and graft; Z95.0 Presence of cardiac pacemaker; Z90.710 Acquired absence of both cervix and uterus; Z79.890 Hormone replacement therapy
CPT/HCPCS: 36415; 36600; 71046; 80048; 80053; 82803; 83735; 83880; 85007; 85025; 85027; 86140; 87040; 87486; 87581; 87632; 87798; 87804; 93005; 94667; 96365; 96366; 96367; 97161; 97165; 99285; A9270; G0378; J0456; J3480; J7040; J7050; 93010; J3475